=== PATIENT | female | born 1940 | race Caucasian/White ===

== ENCOUNTER 2024-08-07 10:10 | Inpatient (IN) | payer MEDICARE, MEDICAID, SELFPAY ==
[2024-08-07] VITALS (27 sets, daily range): BP systolic 97–134; BP diastolic 65–77; PULSE 90–144; RESP 14–28; TEMP 36.5–37.1; O2SAT 92–98; BMI 20.8
--- NOTE | ~2024-08-07 | XR_ITS ---
XR chest 2V Ordering provider: Nereyda Mittal PA-C History: 84 years Female with . weakness NEW LEFT C.P. AND COUGH . Comparison: None. FINDINGS: MEDIASTINUM: The cardiac silhouette is not enlarged. LUNGS: No pneumothorax. Bibasilar opacification suggestive of atelectasis versus pneumonia with left pleural effusion. Underlying emphysematous changes. OTHER: No free air under the diaphragm. IMPRESSION: Bibasilar atelectasis versus pneumonia with left pleural effusion. Reviewed, dictated and finalized at location A. GER JAVA
--- NOTE | ~2024-08-07 | CT_ITS ---
CT chest abdomen pelvis w con Ordering provider: Nereyda Mittal PA-C History: . leukocytosis, UTI, chest pain . Comparison: None. Technique: CT chest, abdomen and pelvis with IV contrast only. Radiation reduction technique utilized .The dose-length product was 442.78 mGy-cm. 100 mL Omnipaque 350 was given IV. A FINDINGS: CHEST: --VISUALIZED THORACIC INLET: Normal. --MEDIASTINUM: Aorta/coronary arteries: Mild atheromatous disease. Heart/other: The heart is not enlarged. Lymph nodes: No mediastinal or hilar adenopathy. --LUNGS: Bilateral basal pneumonia with minimal effusion more on the left side. No pulmonary nodules or masses. No pneumothorax. Underlying fibrotic changes. --MUSCULOSKELETAL: Soft tissues: The superficial soft tissues are normal. Bones: No acute fracture. Age appropriate degenerative changes of the spine. ABDOMEN/PELVIS: --MUSCULOSKELETAL: Bones: No acute fracture. Age appropriate degenerative changes of the spine. Right hip arthroplasty. Left sacroiliitis. Fixation of the left femoral neck is also noted. Superficial soft tissues: The superficial soft tissues are normal. --UPPER ABDOMINAL ORGANS: Liver: Normal. Gallbladder: Normal. Spleen: Normal. Stomach/duodenum: Normal. Pancreas: Normal. Slightly prominent pancreatic duct. Adrenals: Normal. Kidneys: Left kidney upper pole cyst measuring 3.8 cm. --PELVIC ORGANS: The bladder is underfilled.. --BOWEL AND MESENTERY: Colon: No evidence of diverticulitis.. Appendix is not demonstrated. Small Bowel: Normal. No obstruction. Peritoneum/mesentery: No free air or free fluid. No mesenteric lymphadenopathy. --RETROPERITONEUM: Mild atheromatous disease of the abdominal aorta. No retroperitoneal hemorrhage o r aortic trauma. No retroperitoneal lymphadenopathy or retroperitoneal hemorrhage. IMPRESSION: CHEST: 1. Bilateral basal pneumonia with left minimal effusion. 2. No pulmonary embolism. ABDOMEN/PELVIS: 1. No evidence of appendicitis, diverticulitis or intestinal obstruction. 2. Left renal cyst. A Reviewed, dictated and finalized at location A. CAL GENETICIST
--- NOTE | 2024-08-07 10:48 | ECG_ITS ---
Test Date: 2024-08-07 13:08:00 Measurements Intervals [facility] Rate: 105 P: 41 AK: 162 QRS: -6 QRSD: 90 T: -6 QT: 315 QTc: 418 Interpretive Statements SINUS TACHYCARDIA VOLTAGE CRITERIA FOR LVH [MEETS CRITERIA IN ONE OF: R(aVL), S(V1), R(V5), R(V5/V6)+S(V1)] No previous ECG available for comparison Electronically Signed On 08-07-2024 19:00:55 PACKAGER HAND by Adwoa Younger
--- NOTE | 2024-08-07 11:42 | ED.WEAKNESS ---
HPI - Weakness General Chief complaint: Weakness <EDITH Ram Last Filed: 08/12/24 18:40> Stated complaint: weakness <EDITH Ram Last Filed: 08/12/24 18:40> Time Seen by Provider: 08/07/24 10:28 <EDITH Ram Last Filed: 08/12/24 18:40> Source: patient and family <EDITH Ram Last Filed: 08/12/24 18:40> Mode of arrival: ambulatory <EDITH Ram Last Filed: 08/12/24 18:40> Limitations: no limitations <EDITH Ram Last Filed: 08/12/24 18:40> History of Present Illness HPI Narrative: This is an 84-year-old female that presents to the emergency department for generalized weakness. Reports she has had a cough over the last week. Last couple of days she has become more weak and has been sleeping more than usual. Today they thought her breathing seemed off which prompted them to bring her in. Reports pain in her left lower lung. Denies fevers. <EDITH Ram Last Filed: 08/12/24 18:40> Related Data Home medications: Home Medications ?Medication ?Instructions ?Recorded ?Confirmed ?Last Taken ?Type No Home Medications 08/07/24 08/07/24 Unknown History <EDITH Ram Last Filed: 08/12/24 18:40> Allergies/Adverse reactions: Allergies Allergy/AdvReac Type Severity Reaction Status Date / Time latex Allergy Rash Verified 08/07/24 12:55 <EDITH Ram Last Filed: 08/12/24 18:40> Review of Systems Review of Systems: CONSTITUTIONAL: Denies fever ENT: Reports congestion CARDIOVASCULAR: Reports chest pain. Denies edema. RESPIRATORY: Reports cough and dyspnea. <EDITH Ram Last Filed: 08/12/24 18:40> All systems reviewed & are unremarkable except as noted in HPI and below <EDITH Ram Last Filed: 08/12/24 18:40> PMFSH Past Medical History Medical History: Medical History History of COPD <Nereyda Mittal PA-C - Last Filed: 08/12/24 18:40> Social History Social History: Social History Smoking status: Former smoker Tobacco type: cigarettes and e-cigarettes/vaping Second hand tobacco smoke exposure: No Smoking end date: 07/28/14 Alcohol intake: never Substance use: never Substance use type: does not use Do You Feel Safe in your Home?: Yes Lack of Transportation: No Lack of Food: Never True Current Housing: I Have Housing Concerned About Future Housing: No Difficulty Paying Gas/Electric Bills: No Difficulty Paying for Meds: No Currently Unemployed: No Education: High School Diploma/GED Difficulty w/ Childcare or Family Care: No Spiritual care concerns: No <Nereyda Mittal PA-C - Last Filed: 08/12/24 18:40> Exam Narrative: GENERAL: Elderly, well-nourished, and in no acute distress. HEAD: Normocephalic, atraumatic. EYES: PERRLA and EOMI. ENT: Nares clear, no rhinorrhea or epistaxis. Mucous membranes moist. Oropharynx without tonsillar hypertrophy exudate or other lesions. Bilateral cerumen impaction NECK: Supple. No adenopathy or masses. CHEST: No respiratory distress. Lung sounds coarse with rales at the bases. No wheezes or rhonchi HEART: Regular rate and rhythm. No murmur heard. Normal peripheral pulses. EXTREMITIES: Normal range of motion. No edema. SKIN: Warm, dry, no rash. NEURO: No focal deficits. Alert and oriented x3. PSYCH: Normal mood and affect <Nereyda Mittal PA-C - Last Filed: 08/12/24 18:40> Course Course Emergency Course: Patient and family updated on workup and need for admission <Nereyda Mittal PA-C - Last Filed: 08/12/24 18:40> RECEPTIONIST SECRETARY/PA Physician Supervision Agree with the PA note <Nereyda Mittal PA-C - Last Filed: 08/12/24 18:40> Agree with a PA note <Elder Paredes MD - Last Filed: 08/07/24 22:15> Consultations Consultation #1: Spoke with hospitalist about patient and workup who accepts admission <Nereyda Mittal PA-C - Last Filed: 08/12/24 18:40> Date: 08/07/24 <Nereyda Mittal PA-C - Last Filed: 08/12/24 18:40> Vital Signs Vital signs: Vital Signs Pulse Rate 115 H 08/07/24 10:19 Respiratory Rate 24 H 08/07/24 10:19 Temperature 97.6 F 08/12/24 14:00 Pulse Rate 102 H 08/12/24 16:04 Respiratory Rate 17 08/12/24 14:00 Blood Pressure 131/66 08/12/24 14:00 Pulse Oximetry 97 08/12/24 14:00 Oxygen Delivery Room Air 08/12/24 08:15 Fraction of Inspired Oxygen 21 08/12/24 08:15 <Nereyda Mittal PA-C - Last Filed: 08/12/24 18:40> Vital Signs Pulse Rate 115 H 08/07/24 10:19 Respiratory Rate 24 H 08/07/24 10:19 Temperature 97.6 F 08/12/24 14:00 Pulse Rate 102 H 08/12/24 16:04 Respiratory Rate 17 08/12/24 14:00 Blood Pressure 131/66 08/12/24 14:00 Pulse Oximetry 97 08/12/24 14:00 Oxygen Delivery Room Air 08/12/24 08:15 Fraction of Inspired Oxygen 21 08/12/24 08:15 <Elder Paredes MD - Last Filed: 08/07/24 22:15> MDM - Weakness MDM Narrative Medical decision making narrative: Patient presents to the emergency department for a worsening cough. She is afebrile and nontoxic appearing. Lung sounds are coarse. Rales noted at the bases. Oxygen saturation has remained stable on room air. CBC with leukocytosis to 23.1. Metabolic panel with creatinine of 1.2, unsure of patient's baseline. Urine with evidence of infection. Blood cultures obtained and patient started on IV antibiotics. After nebulizer treatment patient did have an episode of AFib with RVR. She responded to a dose of metoprolol. This would be new for the patient. Influenza, RSV and COVID screens are negative. CT chest/abdomen/pelvis obtained for further evaluation shows multifocal pneumonia. No PE or acute intra-abdominal abnormality. Patient and family updated on workup and need for admission. Spoke with hospitalist about patient and workup who accepts admission <Nereyda Mittal PA-C - Last Filed: 08/12/24 18:40> Differential Diagnosis Differential diagnosis: Likely sepsis, dehydration and other (UTI, pneumonia, influenza, COVID, afib, aflutter) <Nereyda Mittal PA-C - Last Filed: 08/12/24 18:40> Lab Data Attestation: I reviewed the patient's lab results. <Nereyda Mittal PA-C - Last Filed: 08/12/24 18:40> Result diagrams: 08/12/24 08:30 08/12/24 08:30 <Nereyda Mittal PA-C - Last Filed: 08/12/24 18:40> Labs: Lab Results 08/07/24 08/07/24 08/07/24 Range/Units 11:40 11:54 12:08 WBC 23.1 H (4.5-10.0) K/mm3 RBC 4.67 (4.2-5.4) M/mm3 Hgb 14.0 (12.0-15.0) g/dL Hct 41.5 (37.0-47.0) % MCV 88.9 (80-100) fl MCH 30.0 (26-34) pg MCHC 33.7 (32-36) g/dl RDW 13.6 (11.5-14.5) % Plt Count 259 (150-375) k/mm3 MPV 9.4 (7.4-10.4) fl Immature Gran % (Auto) Not Reportable Neut % (Auto) Not Reportable Lymph % (Auto) Not Reportable [place] % (Auto) Not Reportable Eos % (Auto) Not Reportable Baso % (Auto) Not Reportable Lymph # (Auto) Not Reportable [place] # (Auto) Not Reportable Eos # (Auto) Not Reportable Baso # (Auto) Not Reportable Abs Immat Gran (auto) Not Reportable Absolute Neuts (auto) Not Reportable Absolute Nucleated RBC Not Reportable Total Counted 100 Neutrophils % (Manual) 77 H (46-73) % Band Neutrophils % 15 H (0-6) % Lymphocytes % (Manual) 2 L (18-44) % Monocytes % (Manual) 6 (3-9) % Eosinophils % (Manual) 0 (0-4) % Basophils % (Manual) 0 (0-1) % Nucleated RBC % Not Reportable Abs Neuts (Manual) 21.25 H (1.7-7.2) K/mm3 Abs Lymphs (Manual) 0.46 L (1.1-4.5) K/mm3 Abs Monocytes (Manual) 1.38 H (0.1-0.90) K/mm3 Absolute Eos (Manual) 0.00 L (0.02-0.50) K/mm3 Abs Basophils (Manual) 0.00 (0.0-0.1) K/mm3 Platelet Estimate Adequate (Adequate) [place] Cells 1+ Schistocytes None seen PT 16.5 H (11.1-14.7) Seconds INR 1.3 APTT 33.3 (22.3-36.8) Seconds Sodium 133 L (137-145) mmol/L Potassium 3.5 (3.4-5.0) mmol/L Chloride 102 (98-107) mmol/L Carbon Dioxide 25 (22-30) mmol/L Anion Gap 6 (4-12) mmol/L BUN 33 H (7-17) mg/dL Creatinine 1.20 H (0.7-1.0) mg/dL Estim Creat Clear Calc Not Reportable Estimated GFR 43 L (59 - ) Glucose 161 H (65-110) mg/dL Lactic Acid 1.8 (0.7-2.0) mmol/L Calcium 8.7 (8.4-10.2) mg/dL Total Bilirubin 2.0 H (0.2-1.3) mg/dL AST 21 (14-36) U/L ALT 14 (6-35) U/L Alkaline Phosphatase 81 (38-126) U/L Troponin I 0.017 (0.000-0.034) ng/mL C-Reactive Protein 32.3 H (<1.0) mg/dL NT-Pro-B Natriuret Pep 1180 H (19.9-100) pg/mL Total Protein 7.0 (6.3-8.2) g/dL Albumin 3.5 (3.5-5.1) g/dL Urine Color [place] H (Yellow) Urine Appearance Cloudy H (Clear) Urine pH 5.0 (5.0-9.0) Ur Specific [place] 1.024 (1.001-1.035) Urine Protein 1+ H (Negative) mg/dL Urine Glucose (UA) Negative (Negative) mg/dL Urine Ketones Trace H (Negative) mg/dL Ur Blood (Man) 1+ H (Negative) Urine Nitrate Positive H (Negative) Urine Bilirubin 2+ H (Negative) Urine Urobilinogen 1.0 (<2.0) mg/dL Leukocyte Esterase Rfl 2+ H (Negative) TOMY/UL Urine RBC 0-2 (0-2) /hpf Urine WBC 51-100 H (0-3) /hpf Ur Squamous Epith Cells Few (Few) /hpf Urine Bacteria 4+ H /hpf Urine Casts >20 Hyaline Casts Present (None) /lpf Urine Mucus Present /lpf Influenza A (RT-PCR) Negative (Negative) Influenza B (RT-PCR) Negative (Negative) RSV (RT-PCR) Negative (Negative) SARS-CoV-2 RNA (RT-PCR) Negative (Negative) <Nereyda Mittal PA-C - Last Filed: 08/12/24 18:40> Lab Results 08/07/24 08/07/24 08/07/24 Range/Units 11:40 11:54 12:08 WBC 23.1 H (4.5-10.0) K/mm3 RBC 4.67 (4.2-5.4) M/mm3 Hgb 14.0 (12.0-15.0) g/dL Hct 41.5 (37.0-47.0) % MCV 88.9 (80-100) fl MCH 30.0 (26-34) pg MCHC 33.7 (32-36) g/dl RDW 13.6 (11.5-14.5) % Plt Count 259 (150-375) k/mm3 MPV 9.4 (7.4-10.4) fl Immature Gran % (Auto) Not Reportable Neut % (Auto) Not Reportable Lymph % (Auto) Not Reportable [place] % (Auto) Not Reportable Eos % (Auto) Not Reportable Baso % (Auto) Not Reportable Lymph # (Auto) Not Reportable [place] # (Auto) Not Reportable Eos # (Auto) Not Reportable Baso # (Auto) Not Reportable Abs Immat Gran (auto) Not Reportable Absolute Neuts (auto) Not Reportable Absolute Nucleated RBC Not Reportable Total Counted 100 Neutrophils % (Manual) 77 H (46-73) % Band Neutrophils % 15 H (0-6) % Lymphocytes % (Manual) 2 L (18-44) % Monocytes % (Manual) 6 (3-9) % Eosinophils % (Manual) 0 (0-4) % Basophils % (Manual) 0 (0-1) % Nucleated RBC % Not Reportable Abs Neuts (Manual) 21.25 H (1.7-7.2) K/mm3 Abs Lymphs (Manual) 0.46 L (1.1-4.5) K/mm3 Abs Monocytes (Manual) 1.38 H (0.1-0.90) K/mm3 Absolute Eos (Manual) 0.00 L (0.02-0.50) K/mm3 Abs Basophils (Manual) 0.00 (0.0-0.1) K/mm3 Platelet Estimate Adequate (Adequate) [place] Cells 1+ Schistocytes None seen PT 16.5 H (11.1-14.7) Seconds INR 1.3 APTT 33.3 (22.3-36.8) Seconds Sodium 133 L (137-145) mmol/L Potassium 3.5 (3.4-5.0) mmol/L Chloride 102 (98-107) mmol/L Carbon Dioxide 25 (22-30) mmol/L Anion Gap 6 (4-12) mmol/L BUN 33 H (7-17) mg/dL Creatinine 1.20 H (0.7-1.0) mg/dL Estim Creat Clear Calc Not Reportable Estimated GFR 43 L (59 - ) Glucose 161 H (65-110) mg/dL Lactic Acid 1.8 (0.7-2.0) mmol/L Calcium 8.7 (8.4-10.2) mg/dL Total Bilirubin 2.0 H (0.2-1.3) mg/dL AST 21 (14-36) U/L ALT 14 (6-35) U/L Alkaline Phosphatase 81 (38-126) U/L Troponin I 0.017 (0.000-0.034) ng/mL C-Reactive Protein 32.3 H (<1.0) mg/dL NT-Pro-B Natriuret Pep 1180 H (19.9-100) pg/mL Total Protein 7.0 (6.3-8.2) g/dL Albumin 3.5 (3.5-5.1) g/dL Urine Color [place] H (Yellow) Urine Appearance Cloudy H (Clear) Urine pH 5.0 (5.0-9.0) Ur Specific [place] 1.024 (1.001-1.035) Urine Protein 1+ H (Negative) mg/dL Urine Glucose (UA) Negative (Negative) mg/dL Urine Ketones Trace H (Negative) mg/dL Ur Blood (Man) 1+ H (Negative) Urine Nitrate Positive H (Negative) Urine Bilirubin 2+ H (Negative) Urine Urobilinogen 1.0 (<2.0) mg/dL Leukocyte Esterase Rfl 2+ H (Negative) TOMY/UL Urine RBC 0-2 (0-2) /hpf Urine WBC 51-100 H (0-3) /hpf Ur Squamous Epith Cells Few (Few) /hpf Urine Bacteria 4+ H /hpf Urine Casts >20 Hyaline Casts Present (None) /lpf Urine Mucus Present /lpf Influenza A (RT-PCR) Negative (Negative) Influenza B (RT-PCR) Negative (Negative) RSV (RT-PCR) Negative (Negative) SARS-CoV-2 RNA (RT-PCR) Negative (Negative) <Elder Paredes MD - Last Filed: 08/07/24 22:15> Imaging Data Radiologist's impression: ITS Impressions Chest X-Ray 08/07/24 11:23 IMPRESSION: Bibasilar atelectasis versus pneumonia with left pleural effusion. Chest/Abdomen/Pelvis CT 08/07/24 13:39 IMPRESSION: CHEST: 1. Bilateral basal pneumonia with left minimal effusion. 2. No pulmonary embolism. ABDOMEN/PELVIS: 1. No evidence of appendicitis, diverticulitis or intestinal obstruction. 2. Left renal cyst. A <Nereyda Mittal PA-C - Last Filed: 08/12/24 18:40> Critical Care Time Critical Care Time Critical Care Time: Yes <Nereyda Mittal PA-C - Last Filed: 08/12/24 18:40> Total Critical Care Time: 35 <Nereyda Mittal PA-C - Last Filed: 08/12/24 18:40> Discharge Plan Discharge Clinical Impression: Severe sepsis, Multifocal pneumonia, General weakness, Atrial fibrillation with RVR, New onset a-fib UTI (urinary tract infection) Qualifiers: Urinary tract infection type: site unspecified Hematuria presence: without hematuria Qualified Code(s): N39.0 - Urinary tract infection, site not specified Acute renal failure Qualifiers: Acute renal failure type: unspecified Qualified Code(s): N17.9 - Acute kidney failure, unspecified <Nereyda Mittal PA-C - Last Filed: 08/12/24 18:40> Patient Disposition: Still a Patient <Nereyda Mittal PA-C - Last Filed: 08/12/24 18:40> Condition: Guarded Prognosis <Nereyda Mittal PA-C - Last Filed: 08/12/24 18:40> Time of Disposition: 22:14 <Nereyda Mittal PA-C - Last Filed: 08/12/24 18:40> 22:14 <Elder Paredes MD - Last Filed: 08/07/24 22:15>
[2024-08-07] MEDS: IPRATROPIUM 0.5 MG/ALBUTEROL SULFATE 2.5 MG AMPUL.NEB 3 ML INHALATION (12:00)
[2024-08-07 12:05] LABS: Hematocrit 41.5 % (37.0-47.0); Mean Corpuscular HGB Conc 33.7 g/dl (32-36); Mean Corpuscular Volume 88.9 fl (80-100); Mean Platelet Volume 9.4 fl (7.4-10.4); Platelet Count Result 259 k/mm3 (150-375); Red Blood Count 4.67 M/mm3 (4.2-5.4); Red Cell Distribution Width 13.6 % (11.5-14.5); White Blood Count 23.1 K/mm3 (4.5-10.0)
[2024-08-07 12:17] LABS: Lactic Acid Reflex 1.8 mmol/L (0.7-2.0)
[2024-08-07 12:19] LABS: INR 1.3; Partial Thromboplastin Time 33.3 Seconds (22.3-36.8); Prothrombin Time 16.5 Seconds (11.1-14.7)
[2024-08-07 12:20] LABS: Alanine Aminotransferase 14 U/L (6-35); Albumin Level 3.5 g/dL (3.5-5.1); Alkaline Phosphatase 81 U/L (38-126); Anion Gap 6 mmol/L (4-12); Aspartate Amino Transferase 21 U/L (14-36); Blood Urea Nitrogen 33 mg/dL (7-17); Calcium 8.7 mg/dL (8.4-10.2); Carbon Dioxide 25 mmol/L (22-30); Chloride 102 mmol/L (98-107); Estimated Glomerular Filt Rate 43; Glucose 161 mg/dL (65-110); Potassium 3.5 mmol/L (3.4-5.0); Sodium 133 mmol/L (137-145)
[2024-08-07 12:25] LABS: Add Urine Microscopic? YES; Appearance Urine Cloudy (Clear); Bacteria Urine 4+ /hpf; Bilirubin Urine 2+ (Negative); Blood Urine 1+ (Negative); Color Urine Orange (Yellow); Glucose Urine UA Negative (Negative); Ketones Urine Trace mg/dL (Negative); Leukocyte Esterase Ur 2+ LEU/UL (Negative); Nitrate Urine Positive (Negative); Non Pathogenic Casts >20; Protein Urine 1+ mg/dL (Negative); RBC Urine 0-2 /hpf (0-2); Specific Grav Ur 1.024 (1.001-1.035); Squamous Epithelial Cell Urine Few /hpf (Few); WBC Urine 51-100 /hpf (0-3)
[2024-08-07 12:25] LABS: NT Pro B Type Natriuretic Pept 1180 pg/mL (19.9-100)
[2024-08-07 12:29] LABS: Troponin I 0.017 ng/mL (0.000-0.034)
[2024-08-07 12:30] LABS: Hyaline Casts Urine Present /lpf; Mucus Urine Present /lpf
[2024-08-07 12:37] LABS: Band Neutrophils Percent 15 % (0-6); Basophils Percent Manual 0 % (0-1); Eosinophils Percent Manual 0 % (0-4); Lymphocytes Absolute Manual 0.46 K/mm3 (1.1-4.5); Lymphocytes Percent Manual 2 % (18-44); Monocytes Absolute Manual 1.38 K/mm3 (0.1-0.90); Monocytes Percent Manual 6 % (3-9); Neutrophils Absolute Manual 21.25 K/mm3 (1.7-7.2); Neutrophils Percent Manual 77 % (46-73); Platelet Estimate Adequate (Adequate); Total Cells Counted 100
[2024-08-07 12:38] LABS: Burr Cells 1+; Schistocytes None Seen
[2024-08-07 12:45] LABS: Influenza A QL RT-PCR Negative (Negative); Influenza B QL RT-PCR Negative (Negative); RSV RNA, RT-PCR Negative (Negative); SARS-CoV-2 RNA PCR Negative (Negative)
[2024-08-07] MEDS: methylPREDNISolone SOD SUCC 125 MG VIAL IV PUSH (12:56)
[2024-08-07 13:45] LABS: CRP 32.3 mg/dL (<1.0)
--- NOTE | 2024-08-07 14:16 | ECG_ITS ---
Test Date: 2024-08-07 14:19:20 Measurements Intervals [place] Rate: 130 P: 0 DC: 0 QRS: 1 QRSD: 90 T: -31 QT: 292 QTc: 430 Interpretive Statements ATRIAL FLUTTER/TACHYCARDIA WITH RAPID VENTRICULAR RESPONSE WITH ABERRANT CONDUCTION OR VENTRICULAR PREMATURE COMPLEXES MINIMAL VOLTAGE CRITERIA FOR LVH, CONSIDER NORMAL VARIANT [MEETS CRITERIA IN ONE OF: R(aVL), S(V1), R(V5), R(V5/V6)+S(V1)] NONSPECIFIC ST & T-WAVE ABNORMALITY ABNORMAL RHYTHM ECG Compared to ECG 08/07/2024 13:08:00 Ventricular premature complex(es) now present Aberrant conduction of supraventricular beat(s) now present T-wave abnormality now present Sinus tachycardia no longer present Electronically Signed On 08-07-2024 19:01:50 FRONT OFFICE J[employer] DEVELOPER by Adwoa Younger
[2024-08-07] MEDS: METOPROLOL TARTRATE INJ 5 MG/5 ML VIAL IV PUSH (14:37)
[2024-08-07] MEDS: AZITHROMYCIN 500 MG/NS 250 ML 500 MG/250 ML BAG 250 MG IVPB (15:10)
--- NOTE | 2024-08-07 16:13 | P.HP_ITS ---
H&P: HPI History of Present Illness Date/Time: 08/07/24 16:13 Chief Complaint: General weakness Narrative: Patient is a poor historian, history taken from patient and patient's daughter Mary 84 years old lady with history of remote history of smoking and possible COPD, without atrial fibrillation CAD, ovarian cancer status post hysterectomy and ovarian 10 years ago, status post chemo and radiation therapy about 10 years ago brought to ED by her daughter with chief complaint of general weakness, cough. Patient has been having productive cough over the last week, with white thick phlegm. Patient also has progressive trend weakness. Patient develops shortness of breath today, therefore patient was brought to ED for evaluation treatment. Patient denies dysuria but has urinary urgency frequency. Patient denies nausea vomiting, headache, focal weakness of photophobia. Upon arrival to ED, blood pressure was soft, 97/65. patient was afebrile, patient has tachycardia 144 tachypnea 24, pulse ox 96 on room air. Lab showed leukocytosis of 23,000 left shift, hyponatremia 133, elevated BUN creatinine ratio 33/1.2, unknown baseline. EKG showed atrial fibrillation, heart rate 130. CTA chest 7 pelvis showed bilateral pneumonia, no pulmonary embolism, no acute intra-abdominal issues. Flu and COVID negative. UA showed cloudy urine, hematuria, bacteria In the ED, patient received azithromycin ceftriaxone, methylprednisolone 125 mg once, metoprolol 5 mg IV push once We admit patient for further evaluation and management Review of Systems Review of Systems: ROS negative except above [facility] Past Medical History Medical History (Updated 08/07/24 @ 22:15 by Elder Paredes MD) History of COPD Social History Social History (Updated 08/07/24 @ 11:44 by Nereyda Mittal PA-C) Smoking status: Former smoker Tobacco type: cigarettes and e-cigarettes/vaping Second hand tobacco smoke exposure: No Smoking end date: 07/28/14 Alcohol intake: never Substance use: never Substance use type: does not use Do You Feel Safe in your Home?: Yes Lack of Transportation: No Lack of Food: Never True Current Housing: I Have Housing Concerned About Future Housing: No Difficulty Paying Gas/Electric Bills: No Difficulty Paying for Meds: No Currently Unemployed: No Education: High School Diploma/GED Difficulty w/ Childcare or Family Care: No Spiritual care concerns: No Meds Home Medications and Allergies Home Medications ?Medication ?Instructions ?Recorded ?Confirmed ?Type No Home Medications 08/07/24 08/07/24 History Allergies Allergy/AdvReac Type Severity Reaction Status Date / Time latex Allergy Rash Verified 08/07/24 12:55 Vital Signs Vital Signs - 24 hr 08/07/24 10:19 08/07/24 10:20 08/07/24 10:21 Temperature 98.4 F Pulse Rate 115 H 114 H 112 H Respiratory Rate 24 H 28 H 21 H Blood Pressure 126/67 126/67 Pulse Oximetry 94 94 Oxygen Delivery Room Air 08/07/24 10:30 08/07/24 10:31 08/07/24 10:45 Temperature Pulse Rate 114 H 117 H 112 H Respiratory Rate 21 H 26 H 21 H Blood Pressure 113/77 Pulse Oximetry 93 93 92 Oxygen Delivery 08/07/24 11:01 08/07/24 11:51 08/07/24 12:00 Temperature Pulse Rate 104 H 105 H 102 H Respiratory Rate 26 H 22 H 23 H Blood Pressure 97/65 L Pulse Oximetry 93 94 94 Oxygen Delivery 08/07/24 12:09 08/07/24 12:16 08/07/24 12:18 Temperature Pulse Rate 101 H 102 H 108 H Respiratory Rate 19 20 21 H Blood Pressure Pulse Oximetry 98 Oxygen Delivery 08/07/24 13:00 08/07/24 13:01 08/07/24 13:15 Temperature Pulse Rate 114 H 112 H 110 H Respiratory Rate 25 H 27 H 26 H Blood Pressure 122/74 Pulse Oximetry 93 93 94 Oxygen Delivery 08/07/24 13:36 08/07/24 13:45 08/07/24 14:37 Temperature Pulse Rate 118 H 115 H 144 H Respiratory Rate 27 H 21 H Blood Pressure Pulse Oximetry 97 96 Oxygen Delivery Exam Narrative: GENERAL: Ill-appearing in no acute distress. Well-nourished. - EYES: EOMI. Anicteric. - HENT: Moist mucous membranes. - LUNGS: Coarse breath sound bilateral, tachypnea - CARDIOVASCULAR: Tachycardia, irregula r in rhythm. No murmur. No JVD. - ABDOMEN: Soft, non-tender and non-dist ended. No palpable masses. - EXTREMITIES: No edema. Peripheral puls es 2+. Non-tender. - NEUROLOGIC: No focal neurological defi cits. CN II-XII grossly intact. General weakness - PSYCHIATRIC: Awake, Alert and oriented x 3. Appropriate mood and affect. - SKIN: No rashes or lesions. Warm. - LYMPH: No cervical lymphadenopathy. H&P: Results Labs Labs: Short CBC 08/07/24 Range/Units 11:54 WBC 23.1 H (4.5-10.0) K/mm3 Hgb 14.0 (12.0-15.0) g/dL Hct 41.5 (37.0-47.0) % Plt Count 259 (150-375) k/mm3 BMP 08/07/24 11:54 Sodium 133 L Potassium 3.5 Chloride 102 Carbon Dioxide 25 BUN 33 H Creatinine 1.20 H Glucose 161 H Calcium 8.7 Cardiac Enzymes 08/07/24 Range/Units 11:54 Troponin I 0.017 (0.000-0.034) ng/mL Liver Function 08/07/24 Range/Units 11:54 Total Bilirubin 2.0 H (0.2-1.3) mg/dL AST 21 (14-36) U/L ALT 14 (6-35) U/L Alkaline Phosphatase 81 (38-126) U/L Albumin 3.5 (3.5-5.1) g/dL Urine 08/07/24 Range/Units 12:08 Urine Color [place] H (Yellow) Urine Appearance Cloudy H (Clear) Urine pH 5.0 (5.0-9.0) Ur Specific [place] 1.024 (1.001-1.035) Urine Protein 1+ H (Negative) mg/dL Urine Glucose (UA) Negative (Negative) mg/dL Assessment and Plan Assessment and plan (1) Severe sepsis: Code(s): A41.9 - Sepsis, unspecified organism; R65.20 - Severe sepsis without septic shock Status: Acute (2) Multifocal pneumonia: Code(s): J18.9 - Pneumonia, unspecified organism Status: Acute (3) UTI (urinary tract infection): Code(s): N39.0 - Urinary tract infection, site not specified Status: Acute (4) Atrial fibrillation with RVR: Code(s): I48.91 - Unspecified atrial fibrillation Status: Acute (5) Acute renal failure: Code(s): N17.9 - Acute kidney failure, unspecified Status: Acute (6) General weakness: Code(s): R53.1 - Weakness Status: Acute (7) New onset a-fib: Code(s): I48.91 - Unspecified atrial fibrillation Status: Acute Plan Severe sepsis, Patient is a tachycardia tachypnea, leukocytosis of 23,100, hypotension upon arrival in the ED CT scan shows bilateral pneumonia, UA shows pyuria Meeting criteria of sepsis Received azithromycin and ceftriaxone in the ED, continue azithromycin IV, start cefepime IV Received fluid resuscitation Blood pressure becomes stable Follow-up blood culture urine culture Monitor vital sign monitoring analyst Multifocal pneumonia Patient has been having productive cough more than a week Patient has white thick phlegm. CT scan showed no PE but bilateral pneumonia COVID flu negative Antibiotics see above Follow-up sputum culture COPD exacerbation Possible undiagnosed COPD, patient has remote history of smoking Patient has shortness breath Will start Xopenex nebulizer Received methylprednisolone 125 mg in the ED, continue methylprednisolone 40 mg q.d. are IV Continuous pulse ox monitor, start O2 therapy to keep pulse ox above 92 AFib RVR Patient has new onset AFib Patient is not on blood thinner Likely secondary to pneumonia, sepsis Echocardiogram pending Start Cardizem IV p.r.n. to control heart rate below 140 if blood pressure permits Consult cardiology for evaluation treatment UTI UA showed cloudy urine, pyuria and microscopic hematuria Antibiotics see above Follow-up urine culture Acute renal failure, hyponatremia Sodium 133, BUN creatinine ratio 33/1.2 on no baseline Patient's family denies history of acute renal failure Likely secondary to sepsis and poor intake Start normal saline IV Follow-up BMP CT does not show obstruction DVT prophylaxis subQ heparin Cardiac diet Patient may stay more than 2 midnights in the hospital Patient wishes DNR DNI code status was discussed with the patient in presents of patient's daughter Mary and home day care provider in the ER Hospitalist MIPS Advance Care Plan I have confirmed that the patient's Advanced Care Plan is present, code status is documented, or surrogate decision maker is listed in patient medical record.: Yes Medication Reconciliation The patient is not eligible for med reconciliation; the patient is in a emergent medical situation where delaying treatment would jeopardize the patients health.: Yes
--- NOTE | 2024-08-07 18:58 | PC.NURSE ---
This RN went into the room to start ordered diltiazem drip and normal saline infusion. Patient adamantly refuses to allow any medications to be given. She states that she doesn't take medications on a normal bases, that she will consider it. This RN sat at the bedside and discussed thoroughly with the patient and family member the reason the medication was ordered. The patient did not change her course and maintained that she would not take the medication at all. Her family member tried to talk with her and encourage her and she became more frustrated and her distrust grew. This RN called the provider and there no answer. This RN left a detailed message.
--- NOTE | 2024-08-07 19:48 | PM.EVENT ---
Event Note Event Note Event Note: Patient is currently agitated and refusing all medical care. Patient's son and [id number] were called and are now at the bedside. Per family she becomes agitated when taken out of her home environment or when she has an infection. Has baseline dementia. They are requesting medications to help calm the patient in order for her to receive medical care. The patient has a hx of alcoholism and they are requesting no cough medications or medications that have alcohol. Fall precautions placed. Patient has also previously hallucinated with pain medication, unsure what name of meds is but would like us to avoid heavy pain medications such as morphine if possible. Will plan for Zyprexa 10 mg IM given patient will not take PO meds and is not tolerating diltiazem gtt. 1-1 sitter ordered and chemical restraints. Family is aware we may need to escalate measures in order for the patient to receive medical care safely and they are agreeable. Zyprexa given at 20:00. Patient requiring multiple redirections from nursing staff back to the bed. Exam: Patient knows her name. No increased work of breathing. Ambulatory without assistance. She is currently rotating through Estonian and southern accent. Attempting to bodily leave the room. Unable to safely physically assess the patient further. Reassessment at 20:30: Patient now calm. Speaking to staff in a more normal tone and has been more redirecatble. Currently laying in bed with eyes closed, sitter at the bedside. In no apparent distress.
[2024-08-07] MEDS: OLANZapine 10 MG, WATER, STERILE FOR INJECTION 2.1 ML IM (20:10)
[2024-08-08] VITALS (19 sets, daily range): BP systolic 111–135; BP diastolic 54–77; PULSE 80–117; RESP 16–24; TEMP 35.6–36.9; O2SAT 94–97
[2024-08-08] MEDS: HEPARIN SODIUM 5,000 UNITS/ML VIAL 5000 UNITS SUB-Q ×4 (00:54→23:00)
[2024-08-08] MEDS: CEFEPIME 1 GM/NS 50 ML 1 GM/50 ML BAG IVPB ×3 (00:54→23:08)
[2024-08-08] MEDS: SODIUM CHLORIDE 0.9% IV 1,000 ML 100 ML IV CONT ×2 (00:54→08:31)
[2024-08-08] MEDS: methylPREDNISolone SOD SUCC 125 MG VIAL 60 MG IV PUSH ×4 (00:55→23:00)
--- NOTE | 2024-08-08 01:40 | PC.NURSE ---
This RN received the patient at shift change. At this time the patient was combative, aggressive, and this RN could not perform ordered care or give medications. ASSISTANT BASEBALL COACH Kym reported to bedside, family was at bedside and options were discussed. Provider ordered Zyprexa to be given to the patient. Zyprexa given IM to patient, and patient calmed down. Telemetry applied to patient and patient rested well in bed. The provider stated while at bedside that after reviewing the telemetry the patient is in Sinus Tach and the Diltiazem can be on hold at this time. This RN placed a new IV and administered medications when able to.
[2024-08-08] MEDS: LEVALBUTEROL NEB 1.25 MG/3 ML 0.63 MG INHALATION ×3 (08:30→21:26)
--- NOTE | 2024-08-08 08:55 | PM.IMPN ---
Progress Note: A&P Assessment and Plan (1) Severe sepsis: Code(s): A41.9 - Sepsis, unspecified organism; R65.20 - Severe sepsis without septic shock Status: Acute (2) Multifocal pneumonia: Code(s): J18.9 - Pneumonia, unspecified organism Status: Acute (3) UTI (urinary tract infection): Qualifiers: Hematuria presence: without hematuria Urinary tract infection type: site unspecified Qualified Code(s): N39.0 - Urinary tract infection, site not specified Code(s): N39.0 - Urinary tract infection, site not specified Status: Acute (4) Atrial fibrillation with RVR: Code(s): I48.91 - Unspecified atrial fibrillation Status: Acute (5) Acute renal failure: Qualifiers: Acute renal failure type: unspecified Qualified Code(s): N17.9 - Acute kidney failure, unspecified Code(s): N17.9 - Acute kidney failure, unspecified Status: Acute (6) General weakness: Code(s): R53.1 - Weakness Status: Acute (7) New onset a-fib: Code(s): I48.91 - Unspecified atrial fibrillation Status: Acute Plan Severe sepsis, Patient is a tachycardia tachypnea, leukocytosis of 23,100, hypotension upon arrival in the ED CT scan shows bilateral pneumonia, UA shows pyuria Meeting criteria of sepsis Received azithromycin and ceftriaxone in the ED, continue azithromycin IV, start cefepime IV Received fluid resuscitation Blood pressure becomes stable Follow-up blood culture : Gram-positive cocci in chain, urine culture pending Monitor vital sign youth nutritional monitor Blood pressure became stable Continue current antibiotics Multifocal pneumonia Patient has been having productive cough more than a week Patient has white thick phlegm. CT scan showed no PE but bilateral pneumonia COVID flu negative Antibiotics see above Follow-up sputum culture COPD exacerbation Possible undiagnosed COPD, patient has remote history of smoking Patient has shortness breath Will start Xopenex nebulizer Received methylprednisolone 125 mg in the ED, continue methylprednisolone 40 mg q.d. are IV Continuous pulse ox monitor, start O2 therapy to keep pulse ox above 92 AFib RVR Patient has new onset AFib Patient is not on blood thinner Likely secondary to pneumonia, sepsis Echocardiogram pending Start Cardizem IV p.r.n. to control heart rate below 140 if blood pressure permits Consult cardiology for evaluation treatment UTI UA showed cloudy urine, pyuria and microscopic hematuria Antibiotics see above Follow-up urine culture Acute renal failure, hyponatremia Sodium 133, BUN creatinine ratio 33/1.2 on no baseline Patient's family denies history of acute renal failure Likely secondary to sepsis and poor intake Start normal saline IV Follow-up BMP CT does not show obstruction Delirium Patient has been having intermittent agitations Resulting from sepsis, pneumonia, Provide frequent orientation Provide lasting 5 mg IM mg once DVT prophylaxis subQ heparin Cardiac diet Patient may stay more than 2 midnights in the hospital Patient wishes DNR DNI code status was discussed with the patient in presents of patient's daughter Mary and healthcare business analyst in the ER Subjective Date/time seen: 08/08/24 08:55 Interval history: Patient is afebrile, blood pressure stable, patient feels shortness breath improving, still has a cough with last production of sputum. Blood culture grows Gram-positive cocci in chains, urine culture pending. Patient is agitated afternoon and yesterday evening. Patient received Zyprexa yesterday. When I saw exam patient, patient was alert oriented and calm Exam Narrative: GENERAL: Ill-appearing in no acute distress. Well-nourished. - EYES: EOMI. Anicteric. - HENT: Moist mucous membranes. - LUNGS: Coarse breath sound bilateral, tachypnea - CARDIOVASCULAR: Tachycardia, irregular in rhythm. No murmur. No JVD. - ABDOMEN: Soft, non-tender and non-distended. No palpable masses. - EXTREMITIES: No edema. Peripheral pulses 2+. Non-tender. - NEUROLOGIC: No focal neurological deficits. CN II-XII grossly intact. General weakness - PSYCHIATRIC: Awake, Alert and oriented x 3. Appropriate mood and affect. - SKIN: No rashes or lesions. Warm. - LYMPH: No cervical lymphadenopathy. Objective Data Vital Signs Vital Signs: Vital Signs - 24 hr 08/07/24 10:19 08/07/24 10:20 08/07/24 10:21 Temperature 98.4 F Pulse Rate 115 H 114 H 112 H Respiratory Rate 24 H 28 H 21 H Blood Pressure 126/67 126/67 Pulse Oximetry 94 94 Oxygen Delivery Room Air 08/07/24 10:30 08/07/24 10:31 08/07/24 10:45 Temperature Pulse Rate 114 H 117 H 112 H Respiratory Rate 21 H 26 H 21 H Blood Pressure 113/77 Pulse Oximetry 93 93 92 Oxygen Delivery 08/07/24 11:01 08/07/24 11:51 08/07/24 12:00 Temperature Pulse Rate 104 H 105 H 102 H Respiratory Rate 26 H 22 H 23 H Blood Pressure 97/65 L Pulse Oximetry 93 94 94 Oxygen Delivery 08/07/24 12:09 08/07/24 12:16 08/07/24 12:18 Temperature Pulse Rate 101 H 102 H 108 H Respiratory Rate 19 20 21 H Blood Pressure Pulse Oximetry 98 Oxygen Delivery 08/07/24 13:00 08/07/24 13:01 08/07/24 13:15 Temperature Pulse Rate 114 H 112 H 110 H Respiratory Rate 25 H 27 H 26 H Blood Pressure 122/74 Pulse Oximetry 93 93 94 Oxygen Delivery 08/07/24 13:36 08/07/24 13:45 08/07/24 14:11 Temperature Pulse Rate 118 H 115 H 131 H Respiratory Rate 27 H 21 H 22 H Blood Pressure Pulse Oximetry 97 96 94 Oxygen Delivery 08/07/24 14:15 08/07/24 14:37 08/07/24 14:41 Temperature Pulse Rate 130 H 144 H 108 H Respiratory Rate 26 H 14 Blood Pressure Pulse Oximetry 95 93 Oxygen Delivery 08/07/24 14:45 08/07/24 15:50 08/07/24 17:10 Temperature 97.7 F Pulse Rate 90 103 H 96 Respiratory Rate 20 24 H 18 Blood Pressure 133/75 134/71 Pulse Oximetry 93 95 98 Oxygen Delivery 08/07/24 18:00 08/07/24 20:00 08/07/24 22:00 Temperature 98.7 F Pulse Rate 109 H 103 H 95 Respiratory Rate 18 Blood Pressure 124/75 Pulse Oximetry 95 Oxygen Delivery 08/08/24 00:00 08/08/24 00:00 08/08/24 02:00 Temperature 98.4 F Pulse Rate 113 H 105 H 87 Respiratory Rate 20 Blood Pressure 129/77 Pulse Oximetry 96 Oxygen Delivery 08/08/24 04:00 08/08/24 04:00 08/08/24 06:00 Temperature 97.7 F Pulse Rate 80 82 90 Respiratory Rate 20 Blood Pressure 111/54 L Pulse Oximetry 96 Oxygen Delivery 08/08/24 08:33 08/08/24 08:33 08/08/24 08:49 Temperature Pulse Rate 94 96 Respiratory Rate 18 18 Blood Pressure Pulse Oximetry 94 Oxygen Delivery Room Air Intake/Output Intake/Output: Intake & Output 08/05/24 08/06/24 08/07/24 08/08/24 23:59 23:59 23:59 23:59 Intake Total 300 811.7 Balance 300 811.7 Meds/Results Medications: Active Medications Generic Name Dose Route Start Last Admin Trade Name Freq PRN Reason Stop Dose Admin Albuterol/Ipratropium 3 ml 08/07/24 17:05 Ipratropium 0.5 Mg/Albuterol Sulfate 2.5 Mg Ampul.Neb 3 Ml INHALATION Q6HRT PRN Shortness Of Breath Or Wheezing Heparin Sodium (Porcine) 5,000 units 08/08/24 08:00 08/08/24 08:31 Heparin Sodium 5,000 Units/Ml Vial SUB-Q 5,000 units Q8HR KELLY Administration Azithromycin 500 mg in 250 mls @ 250 mls/hr 08/08/24 14:00 Zithromax IVPB Q24H KELLY Sodium Chloride 1,000 mls @ 100 mls/hr 08/07/24 17:05 08/08/24 08:31 Normal Saline Iv IV CONT 100 mls/hr .Q10H KELLY Administration Diltiazem HCl 100 mg in 100 mls @ 5 mls/hr 08/07/24 17:15 08/08/24 01:37 Cardizem 100 Mg/100 Ml IV CONT Not Given .Q20H KELLY 5 MG/HR Cefepime HCl 1 gm in 50 mls @ 100 mls/hr 08/08/24 11:00 Maxipime 1 Gm/Ns 50 Ml IVPB Q12H KELLY Levalbuterol HCl 0.63 mg 08/07/24 20:00 08/08/24 08:30 Levalbuterol Neb 1.25 Mg/3 Ml INHALATION 0.63 mg Q6HRT KELLY Administration Methylprednisolone Sodium Succinate 60 mg 08/08/24 08:00 08/08/24 08:32 Methylprednisolone Sod Succ 125 Mg Vial IV PUSH 60 mg Q8HR KELLY Administration Perflutren Lipid Microsphere 0 ml 08/07/24 17:05 Perflutren Lipid Microspheres 1.5 Ml Vial Diluted To 10 Ml Total Volume IV PUSH 08/10/24 17:05 ONCE PRN adequate visualization Protocol Radiology Results: ITS Impressions Chest X-Ray 08/07/24 11:23 IMPRESSION: Bibasilar atelectasis versus pneumonia with left pleural effusion. Chest/Abdomen/Pelvis CT 08/07/24 13:39 IMPRESSION: CHEST: 1. Bilateral basal pneumonia with left minimal effusion. 2. No pulmonary embolism. ABDOMEN/PELVIS: 1. No evidence of appendicitis, diverticulitis or intestinal obstruction. 2. Left renal cyst. A Labs Labs: Laboratory Results - last 24 hr 08/07/24 08/07/24 08/07/24 11:40 11:54 12:08 WBC 23.1 H RBC 4.67 Hgb 14.0 Hct 41.5 MCV 88.9 MCH 30.0 MCHC 33.7 RDW 13.6 Plt Count 259 MPV 9.4 Immature Gran % (Auto) Not Reportable Neut % (Auto) Not Reportable Lymph % (Auto) Not Reportable [place] % (Auto) Not Reportable Eos % (Auto) Not Reportable Baso % (Auto) Not Reportable Lymph # (Auto) Not Reportable [place] # (Auto) Not Reportable Eos # (Auto) Not Reportable Baso # (Auto) Not Reportable Abs Immat Gran (auto) Not Reportable Absolute Neuts (auto) Not Reportable Absolute Nucleated RBC Not Reportable Total Counted 100 Neutrophils % (Manual) 77 H Band Neutrophils % 15 H Lymphocytes % (Manual) 2 L Monocytes % (Manual) 6 Eosinophils % (Manual) 0 Basophils % (Manual) 0 Nucleated RBC % Not Reportable Abs Neuts (Manual) 21.25 H Abs Lymphs (Manual) 0.46 L Abs Monocytes (Manual) 1.38 H Absolute Eos (Manual) 0.00 L Abs Basophils (Manual) 0.00 Platelet Estimate Adequate [place] Cells 1+ Schistocytes None seen PT 16.5 H INR 1.3 APTT 33.3 Sodium 133 L Potassium 3.5 Chloride 102 Carbon Dioxide 25 Anion Gap 6 BUN 33 H Creatinine 1.20 H Estim Creat Clear Calc Not Reportable Estimated GFR 43 L Glucose 161 H Lactic Acid 1.8 Calcium 8.7 Total Bilirubin 2.0 H AST 21 ALT 14 Alkaline Phosphatase 81 Troponin I 0.017 C-Reactive Protein 32.3 H NT-Pro-B Natriuret Pep 1180 H Total Protein 7.0 Albumin 3.5 Urine Color [place] H Urine Appearance Cloudy H Urine pH 5.0 Ur Specific [place] 1.024 Urine Protein 1+ H Urine Glucose (UA) Negative Urine Ketones Trace H Ur Blood (Man) 1+ H Urine Nitrate Positive H Urine Bilirubin 2+ H Urine Urobilinogen 1.0 Leukocyte Esterase Rfl 2+ H Urine RBC 0-2 Urine WBC 51-100 H Ur Squamous Epith Cells Few Urine Bacteria 4+ H Urine Casts >20 Hyaline Casts Present Urine Mucus Present Influenza A (RT-PCR) Negative Influenza B (RT-PCR) Negative RSV (RT-PCR) Negative SARS-CoV-2 RNA (RT-PCR) Negative
--- NOTE | 2024-08-08 08:57 | ECG_ITS ---
Test Date: 2024-08-08 09:55:19 Measurements Intervals [place] Rate: 104 P: 79 [place]: 165 QRS: -7 QRSD: 86 T: -1 QT: 336 QTc: 442 Interpretive Statements SINUS TACHYCARDIA WITH OCCASIONAL SUPRAVENTRICULAR PREMATURE COMPLEXES VOLTAGE CRITERIA FOR LVH [MEETS CRITERIA IN ONE OF: R(aVL), S(V1), R(V5), R(V5/V6)+S(V1)] MINIMAL ST DEPRESSION [0.025+ mV ST DEPRESSION] Compared to ECG 08/07/2024 14:19:20 ST (T wave) deviation now present Atrial flutter no longer present Ventricular premature complex(es) no longer present Aberrant conduction of supraventricular beat(s) no longer present Electronically Signed On 08-08-2024 15:57:14 SPECIAL EVENT ASSISTANT by Adwoa Younger
--- NOTE | 2024-08-08 09:16 | ECG_ITS ---
Test Date: 2024-08-08 09:56:36 Measurements Intervals [place] Rate: 108 P: 68 [place]: 158 QRS: -11 QRSD: 86 T: -4 QT: 331 QTc: 445 Interpretive Statements SINUS TACHYCARDIA VOLTAGE CRITERIA FOR LVH [MEETS CRITERIA IN ONE OF: R(aVL), S(V1), R(V5), R(V5/V6)+S(V1)] Compared to ECG 08/08/2024 09:55:19 ST (T wave) deviation no longer present Electronically Signed On 08-08-2024 16:28:00 CONTROL SYSTEM COMPUTER SCIENTIST by Adwoa Younger
--- NOTE | 2024-08-08 10:08 | PM.CNCAR ---
Assessment and Plan Assessment and plan (1) New onset a-fib: Code(s): I48.91 - Unspecified atrial fibrillation Status: Acute Assessment and Plan: New onset atrial flutter which has spontaneously converted to sinus tachycardia with frequent PAC's. Can consider low dose beta ramya, though I suspect her tachycardia is related to underlying infection/sepsis Continue to monitor on telemetry, if recurrence of AF then can consider anticoagulation Echo has been ordered and will be reviewed Cardiology will sign off please call with questions (2) Acute renal failure: Qualifiers: Acute renal failure type: unspecified Qualified Code(s): N17.9 - Acute kidney failure, unspecified Code(s): N17.9 - Acute kidney failure, unspecified Status: Acute Assessment and Plan: Continue with IV fluids for now, avoid nephrotoxic agents (3) UTI (urinary tract infection): Qualifiers: Hematuria presence: without hematuria Urinary tract infection type: site unspecified Qualified Code(s): N39.0 - Urinary tract infection, site not specified Code(s): N39.0 - Urinary tract infection, site not specified Status: Acute Assessment and Plan: On abx per hospitalist (4) Multifocal pneumonia: Code(s): J18.9 - Pneumonia, unspecified organism Status: Acute Assessment and Plan: On abx per hospitalist History of Present Illness History of Present Illness Consult date/time: 08/08/24 10:08 Requesting physician: Urszula Ewing MD Consult reason: atrial fibrillation Reason For Visit: pneumonia / uti afib w rvr Narrative: Melida Akbar is an 84 year old female with dementia and possible COPD. She is admitted with weakness and a cough. Cardiology is consulted because of atrial fibrillation with rapid ventricular response. Patient denies any cardiac history including atrial fibrillation but she admits she is a poor historian. She denies any history of palpitations, chest pain, swelling. Initially her EKG showed sinus tachycardia with subsequent tracing showing atrial flutter with rapid ventricular response. She was placed on a diltiazem drip and spontaneously converted back to sinus tachycardia. At the time of my evaluation she has no active complaints and is pleasant and cooperative. Review of Systems Review of Systems: All systems reviewed & are unremarkable except as noted in HPI and below PMFSH Past Medical History Medical History History of COPD Social History Social History Smoking status: Former smoker Tobacco type: cigarettes and e-cigarettes/vaping Second hand tobacco smoke exposure: No Smoking end date: 07/28/14 Alcohol intake: never Substance use: never Substance use type: does not use Do You Feel Safe in your Home?: Yes Lack of Transportation: No Lack of Food: Never True Current Housing: I Have Housing Concerned About Future Housing: No Difficulty Paying Gas/Electric Bills: No Difficulty Paying for Meds: No Currently Unemployed: No Education: High School Diploma/GED Difficulty w/ Childcare or Family Care: No Spiritual care concerns: No Meds Home Medications and Allergies Home Medications ?Medication ?Instructions ?Recorded ?Confirmed ?Type No Home Medications 08/07/24 08/07/24 History Allergies Allergy/AdvReac Type Severity Reaction Status Date / Time latex Allergy Rash Verified 08/07/24 12:55 Vital Signs Vital Signs - 24 hr 08/07/24 10:19 08/07/24 10:20 08/07/24 10:21 Temperature 36.9 C Pulse Rate 115 H 114 H 112 H Respiratory Rate 24 H 28 H 21 H Blood Pressure 126/67 126/67 Pulse Oximetry 94 94 Oxygen Delivery Room Air 08/07/24 10:30 08/07/24 10:31 08/07/24 10:45 Temperature Pulse Rate 114 H 117 H 112 H Respiratory Rate 21 H 26 H 21 H Blood Pressure 113/77 Pulse Oximetry 93 93 92 Oxygen Delivery 08/07/24 11:01 08/07/24 11:51 08/07/24 12:00 Temperature Pulse Rate 104 H 105 H 102 H Respiratory Rate 26 H 22 H 23 H Blood Pressure 97/65 L Pulse Oximetry 93 94 94 Oxygen Delivery 08/07/24 12:09 08/07/24 12:16 08/07/24 12:18 Temperature Pulse Rate 101 H 102 H 108 H Respiratory Rate 19 20 21 H Blood Pressure Pulse Oximetry 98 Oxygen Delivery 08/07/24 13:00 08/07/24 13:01 08/07/24 13:15 Temperature Pulse Rate 114 H 112 H 110 H Respiratory Rate 25 H 27 H 26 H Blood Pressure 122/74 Pulse Oximetry 93 93 94 Oxygen Delivery 08/07/24 13:36 08/07/24 13:45 08/07/24 14:11 Temperature Pulse Rate 118 H 115 H 131 H Respiratory Rate 27 H 21 H 22 H Blood Pressure Pulse Oximetry 97 96 94 Oxygen Delivery 08/07/24 14:15 08/07/24 14:37 08/07/24 14:41 Temperature Pulse Rate 130 H 144 H 108 H Respiratory Rate 26 H 14 Blood Pressure Pulse Oximetry 95 93 Oxygen Delivery 08/07/24 14:45 08/07/24 15:50 08/07/24 17:10 Temperature 36.5 C Pulse Rate 90 103 H 96 Respiratory Rate 20 24 H 18 Blood Pressure 133/75 134/71 Pulse Oximetry 93 95 98 Oxygen Delivery 08/07/24 18:00 08/07/24 20:00 08/07/24 22:00 Temperature 37.1 C Pulse Rate 109 H 103 H 95 Respiratory Rate 18 Blood Pressure 124/75 Pulse Oximetry 95 Oxygen Delivery 08/08/24 00:00 08/08/24 00:00 08/08/24 02:00 Temperature 36.9 C Pulse Rate 113 H 105 H 87 Respiratory Rate 20 Blood Pressure 129/77 Pulse Oximetry 96 Oxygen Delivery 08/08/24 04:00 08/08/24 04:00 08/08/24 06:00 Temperature 36.5 C Pulse Rate 80 82 90 Respiratory Rate 20 Blood Pressure 111/54 L Pulse Oximetry 96 Oxygen Delivery 08/08/24 08:00 08/08/24 08:33 08/08/24 08:33 Temperature 35.8 C L Pulse Rate 104 H 94 Respiratory Rate 24 H 18 Blood Pressure 128/66 Pulse Oximetry 95 94 Oxygen Delivery Room Air 08/08/24 08:49 Temperature Pulse Rate 96 Respiratory Rate 18 Blood Pressure Pulse Oximetry Oxygen Delivery Exam Const: General: comfortable, no acute distress, alert and awake Orientation/consciousness: patient oriented x3 HENMT: Head: normal to inspection Eyes: General: appearance normal, both eyes and all related structures Pupils: Equal, round and reactive pupils present Neck: Neck: normal visual inspection, supple and no JVD Resp: Effort & Inspection: normal respiratory effort Auscultation: not clear to auscultation bilaterally, crackles and diminished lung sounds Cardio: Rate: regular rate Rhythm: regular rhythm Heart sounds: S1 normal heart sound present, S2 normal heart sound present and Murmur heart sound present systolic soft GI: Auscultation: normal bowel sounds Skin: General skin exam: normal color Neuro: General: patient oriented x3 Cranial nerves: Yes Equal, round and reactive pupils present Extrem: General: normal to inspection Psych: Appearance: grossly normal Mental Status: mental status grossly normal Results Labs and Meds 08/07/24 11:54 08/07/24 11:54 Lab results: Cardiac Enzymes 08/07/24 Range/Units 11:54 AST 21 (14-36) U/L Troponin I 0.017 (0.000-0.034) ng/mL Coagulation 08/07/24 Range/Units 11:54 PT 16.5 H (11.1-14.7) Seconds APTT 33.3 (22.3-36.8) Seconds CBC 08/07/24 Range/Units 11:54 WBC 23.1 H (4.5-10.0) K/mm3 RBC 4.67 (4.2-5.4) M/mm3 Hgb 14.0 (12.0-15.0) g/dL Hct 41.5 (37.0-47.0) % Plt Count 259 (150-375) k/mm3 Lymph # (Auto) Not Reportable [place] # (Auto) Not Reportable Eos # (Auto) Not Reportable Baso # (Auto) Not Reportable Comprehensive Metabolic Panel 08/07/24 Range/Units 11:54 Sodium 133 L (137-145) mmol/L Potassium 3.5 (3.4-5.0) mmol/L Chloride 102 (98-107) mmol/L Carbon Dioxide 25 (22-30) mmol/L BUN 33 H (7-17) mg/dL Creatinine 1.20 H (0.7-1.0) mg/dL Glucose 161 H (65-110) mg/dL Calcium 8.7 (8.4-10.2) mg/dL AST 21 (14-36) U/L ALT 14 (6-35) U/L Alkaline Phosphatase 81 (38-126) U/L Total Protein 7.0 (6.3-8.2) g/dL Albumin 3.5 (3.5-5.1) g/dL Intake and Output 08/07/24 08/08/24 08/08/24 23:59 07:59 15:59 Intake Total 823 74 6705.7 Balance 664 48 9622.7 Intake: IV 250 50 761.7 Sodium Chloride 0.9% IV 1,000 761.7 ml @ 100 mls/hr IV CONT .Q10H [facility] Rx#:[id number] Azithromycin 500 mg/Ns 250 ml 250 500 mg In 250 ml @ 250 mls/hr IVPB ONCE STA Rx#:[id number] Cefepime 1 gm/Ns 50 ml 1 gm In 50 50 ml @ 100 mls/hr IVPB Q12HR [facility] Rx#:[id number] Oral 0 240 Patient Weight 08/08/24 23:59 Weight 58.6 kg
[2024-08-08] MEDS: AZITHROMYCIN 500 MG/NS 250 ML 500 MG/250 ML BAG 250 MG IVPB (14:27)
--- NOTE | 2024-08-08 17:05 | ECHO_ITS ---
Patient Info Name: Melida Akbar Age: 84 years : 1940 Gender: Female Ht: 65 in Wt: 133 lbs BSA: 1.67 m2 HR: 82 bpm BP: 111 / 54 mmHg Technical Quality: Fair Exam Date: 08/08/2024 10:50 AM Exam Location: Echo Lab Patient Status: Inpatient Admit Date: 08/07/2024 Staff Ordering Physician: Urszula Ewing MD [employer] Rep: Breana Robles RDCS Attending Provider: Urszula Ewing MD Exam Type: CA echo doppler color flow Study Info Indications I48.1 - Persistent atrial fibrillation Complete two-dimensional, color flow and Doppler transthoracic echocardiogram is performed. Summary 1. Complete two-dimensional, color flow and Doppler transthoracic echocardiogram is performed. 2. Left ventricular chamber dimension is normal. 3. There is no increased left ventricular wall thickness. 4. Left ventricular systolic function is normal with an ejection fraction by Biplane Method of Discs of 71 %. 5. The left ventricular diastolic function is grade I diastolic dysfunction. 6. Right ventricular chamber dimension is normal. 7. Right ventricular systolic function is normal. 8. There is mild aortic valve stenosis with a peak velocity of 232 cm/s, mean gradient of 12 mmHg, and aortic valve area of 1.3 cm2. 9. There is trace aortic valve regurgitation. 10. There is moderate aortic valve sclerosis. 11. There is mild tricuspid valve regurgitation. 12. No pulmonary hypertension, estimated pulmonary arterial systolic pressure is 30 mmHg. Left Ventricle Left ventricular chamber dimension is normal. There is no increased left ventricular wall thickness. Left ventricular systolic function is normal with an ejection fraction by Biplane Method of Discs of 71 %. The left ventricular diastolic function is grade I diastolic dysfunction. Right Ventricle Right ventricular chamber dimension is normal. Right ventricular systolic function is normal. Aortic Valve There is trace aortic valve regurgitation. There is mild aortic valve stenosis with a peak velocity of 232 cm/s, mean gradient of 12 mmHg, and aortic valve area of 1.3 cm2. Aortic valve is not well visualized. There is moderate aortic valve sclerosis. Pulmonic Valve There is trace pulmonic regurgitation. Mitral Valve The mitral valve has normal leaflets. There is no mitral valve regurgitation. Tricuspid Valve There is mild tricuspid valve regurgitation. No pulmonary hypertension, estimated pulmonary arterial systolic pressure is 30 mmHg. Inferior Vena Cava Normal inferior vena cava with >50% collapse upon inspiration consistent with normal right atrial pressure, 3 mmHg. Aorta The aortic root size at the sinus of Valsalva is normal. The prox ascending aorta size is normal. Left Ventricular Outflow Tract Name Value Normal LVOT 2D LVOT Diameter 2.0 cm LVOT Doppler LVOT Peak Gradient 6 mmHg LVOT Mean Gradient 3 mmHg LVOT VTI 18 cm LVOT VTI/AV VTI Ratio 0.4 LVOT Stroke Volume 58 ml LVOT CO 5.4 l/min LVOT CI 3.2 l/min/m2 Mitral Valve Name Value Normal MV Doppler MV Decel [facility] 403 cm/s2 MV PHT 66 ms MV Area (PHT) 3.4 cm2 4.0-5.0 MV Diastolic Function MV E Peak Velocity 91 cm/s MV A Peak Velocity 135 cm/s MV E/A 0.7 MV Decel Time 226 ms Tricuspid Valve Name Value Normal TV Regurgitation Doppler TR Peak Velocity 261 cm/s TR Peak Gradient 27 mmHg Estimated PAP/RSVP RA Pressure 3 mmHg <=5 PA Systolic Pressure 30 mmHg <36 RV Systolic Pressure 30 mmHg <36 Aorta Name Value Normal Ascending Aorta Ao Root Diameter (MM) 2.6 cm Ao Root Diam Index (MM) 1.6 cm/m2 Aortic Valve Name Value Normal AV Doppler AV Peak Velocity 232 cm/s AV Peak Gradient 22 mmHg AV Mean Gradient 12 mmHg AV VTI 45 cm AV Area (Cont Eq VTI) 1.3 cm2 >=3.0 AV Area (Cont Eq Tj) 1.6 cm2 AV Regurgitation 2D LVOT Area 3.2 cm2 AV Regurgitation Doppler AR Decel Time 1,[address] [facility] 319 cm/s2 AR PHT 310 ms Ventricles Name Value Normal LV Dimensions 2D/MM IVS Diastolic Thickness (2D) 0.7 cm 0.6-1.0 IVS Diastole Thickness (MM) 0.8 cm 0.6-0.9 LVID Diastole (2D) 3.5 cm 3.8-5.2 LVID Diastole (MM) 4.7 cm 3.8-5.2 LVIW Diastolic Thickness (2D) 0.7 cm 0.6-0.9 LVIW Diastolic Thickness (MM) 0.9 cm 0.6-0.9 LVID Systole (2D) 2.1 cm 2.2-3.5 LVID Systole (MM) 2.6 cm 2.2-3.5 LVOT Diameter 2.0 cm LV Mass (2D Cubed) 64.96 g 67.00-162.00 LV Mass Index (2D Cubed) 39 g/m2 43-95 Relative Wall Thickness (2D) 0.42 LV Mass (MM Cubed) 127.84 g 67.00-162.00 LV Mass Index (MM Cubed) 77 g/m2 43-95 Relative Wall Thickness (MM) 0.37 LV Fractional Shortening/Ejection Fraction 2D/MM LV Fractional Shortening (2D) 43 % 27-45 LV Fractional Shortening (MM) 46 % 27-45 LV EF (MM Teicholz) 77 % 54-74 LV EF (2D Teicholz) 75 % 54-74 LV Diastolic Volume (4C MOD) 45 ml LV EF (4C MOD) 74 % LV Diastolic Volume (2C MOD) 27 ml LV EF (2C MOD) 67 % LV Diastolic Volume (BP MOD) 35 ml 46-106 LV Diastolic Volume Index (BP MOD) 21 ml/m2 29-61 LV Systolic Volume (BP MOD) 10 ml 14-42 LV Systolic Volume Index (BP MOD) 6 ml/m2 8-24 LV EF (BP MOD) 71 % 54-74 LV Diastolic Length (4C) 6.8 cm LV Systolic Length (4C) 5.7 cm LV Stroke Volume (4C MOD) 33 ml Atria Name Value Normal LA Dimensions LA Dimension (MM) 3.7 cm 2.7-3.8 LA Volume (4C A-L) 32 ml LA Volume (BP A-L) 32 ml RA Dimensions RA Area (4C) 11.6 cm2 <=18.0 Report Signatures
[2024-08-09] VITALS (20 sets, daily range): BP systolic 125–171; BP diastolic 62–85; PULSE 95–118; RESP 18–20; TEMP 36.4–36.8; O2SAT 93–98
[2024-08-09] MEDS: SODIUM CHLORIDE 0.9% IV 1,000 ML 100 ML IV CONT
[2024-08-09] MEDS: LEVALBUTEROL NEB 1.25 MG/3 ML 0.63 MG INHALATION ×4 (03:20→20:00)
[2024-08-09] MEDS: HEPARIN SODIUM 5,000 UNITS/ML VIAL 5000 UNITS SUB-Q ×3 (06:40→20:59)
[2024-08-09] MEDS: methylPREDNISolone SOD SUCC 125 MG VIAL 60 MG IV PUSH (06:41)
--- NOTE | 2024-08-09 09:00 | P.PNIM_ITS ---
Progress Note: A&P Assessment and Plan (1) Severe sepsis: Code(s): A41.9 - Sepsis, unspecified organism; R65.20 - Severe sepsis without septic shock Status: Acute (2) Multifocal pneumonia: Code(s): J18.9 - Pneumonia, unspecified organism Status: Acute (3) UTI (urinary tract infection): Qualifiers: Hematuria presence: without hematuria Urinary tract infection type: site unspecified Qualified Code(s): N39.0 - Urinary tract infection, site not specified Code(s): N39.0 - Urinary tract infection, site not specified Status: Acute (4) Atrial fibrillation with RVR: Code(s): I48.91 - Unspecified atrial fibrillation Status: Acute (5) Acute renal failure: Qualifiers: Acute renal failure type: unspecified Qualified Code(s): N17.9 - Acute kidney failure, unspecified Code(s): N17.9 - Acute kidney failure, unspecified Status: Acute (6) General weakness: Code(s): R53.1 - Weakness Status: Acute (7) New onset a-fib: Code(s): I48.91 - Unspecified atrial fibrillation Status: Acute Plan This is 84-year-old female presents to the ER with generalized weakness. She reported some cough over the past week. She has also been sleeping more than usual. Today her breathing seemed off and hence was prompted to bring her to the ER for evaluation. Patient also reported pain in her left chest. On arrival to the ED patient was tachycardic. Mild hypotension on arrival to the ED. Laboratory evaluation revealed WBC of 23 K creatinine 1.2 mild hyponatremia at 133 lactate was normal at 1.8. Troponin was negative CRP elevated at 32.3 BNP 1180. Urinalysis was positive for UTI. Influenza RSV and COVID swab was negative. EKG showed atrial flutter/tachycardia with rapid ve ntricular response with aberrant conduction or ventricular premature complexes. CT scan of the chest showed bilateral pneumonia. Patient was diagnosed with severe sepsis with meeting SIRS criteria. Patient was started on azithromycin and ceftriaxone. Blood culture obtained which came back positive for Gram-positive cocci in chains. Identified as Streptococcus pneumonia. Continue on cefepime IV daily. Urine culture with E coli susceptibility pending COPD exacerbation possible remote history of smoking. Received methylprednisolone 125 mg in the ED. Currently on methylprednisone. Will stop med hard prednisolone AFib with RVR new diagnosis. On Cardizem p.r.n.. Cardiology consulted. Echocardiogram with EF 71% grade 1 diastolic dysfunction mild aortic valve stenosis. No pulmonary hypertension. She has spontaneously converted to sinus rhythm with frequent PACs. Likely related to underlying sepsis. No anticoagulation needed. DWIGHT mild related to sepsis follow-up labs ordered CT with no obstruction Delirium with intermittent agitation requiring Zyprexa. Currently has a sitter. Continue to monitor DVT prophylaxis on subQ heparin Code status do not resuscitate Subjective Date/time seen: 08/09/24 09:00 Interval history: Chart reviewed. No overnight events reported. Patient still confused to some extent. Did not require any anti psychotic. Has a sitter at bedside. Review of Systems Review of Systems: All systems reviewed & are unremarkable except as noted in HPI and below Exam Narrative: GENERAL: Well-appearing in no acute distress. Well-nourished. - EYES: EOMI. Anicteric. - HENT: Moist mucous membranes. - LUNGS: Coarse breath sound bilateral, tachypnea - CARDIOVASCULAR: Mildly Tachycardia, i rregular in rhythm. No murmur. No JVD. - ABDOMEN: Soft, non-tender and non-dist ended. No palpable masses. - EXTREMITIES: No edema. Peripheral puls es 2+. Non-tender. - NEUROLOGIC: No focal neurological defi cits. CN II-XII grossly intact. General weakness - PSYCHIATRIC: Awake, Alert and oriented x 3. Appropriate mood and affect. - SKIN: No rashes or lesions. Warm. - LYMPH: No cervical lymphadenopathy. Objective Data Vital Signs Vital Signs: Vital Signs - 24 hr 08/08/24 10:00 08/08/24 12:00 08/08/24 12:00 Temperature 96.1 F L Pulse Rate 95 93 97 Respiratory Rate 24 H Blood Pressure 134/63 Pulse Oximetry 97 Oxygen Delivery 08/08/24 14:00 08/08/24 14:24 08/08/24 14:31 Temperature Pulse Rate 111 H 100 102 H Respiratory Rate 18 18 Blood Pressure Pulse Oximetry Oxygen Delivery 08/08/24 16:00 08/08/24 16:00 08/08/24 18:00 Temperature 97.4 F L Pulse Rate 108 H 105 H 117 H Respiratory Rate 16 Blood Pressure 133/62 Pulse Oximetry 96 Oxygen Delivery 08/08/24 20:00 08/08/24 20:22 08/08/24 21:32 Temperature 97.6 F Pulse Rate 108 H 103 H 101 H Respiratory Rate 18 18 Blood Pressure 135/64 Pulse Oximetry 97 Oxygen Delivery 08/08/24 22:00 08/08/24 23:47 08/09/24 00:00 Temperature 97.9 F Pulse Rate 105 H 110 H 108 H Respiratory Rate 20 Blood Pressure 120/56 L Pulse Oximetry 96 Oxygen Delivery 08/09/24 02:00 08/09/24 04:00 08/09/24 04:33 Temperature 97.7 F Pulse Rate 104 H 98 97 Respiratory Rate 20 Blood Pressure 125/69 Pulse Oximetry 96 Oxygen Delivery 08/09/24 06:00 08/09/24 07:38 08/09/24 07:38 Temperature Pulse Rate 99 95 Respiratory Rate 18 Blood Pressure Pulse Oximetry 96 Oxygen Delivery Room Air 08/09/24 07:51 08/09/24 08:00 Temperature 97.6 F Pulse Rate 100 108 H Respiratory Rate 18 20 Blood Pressure 129/85 Pulse Oximetry 98 Oxygen Delivery Intake/Output Intake/Output: Intake & Output 08/06/24 08/07/24 08/08/24 08/09/24 23:59 23:59 23:59 23:59 Intake Total 300 2831.7 790 Output Total 200 600 Balance 300 2631.7 190 Meds/Results Medications: Active Medications Generic Name Dose Route Start Last Admin Trade Name Freq PRN Reason Stop Dose Admin Albuterol/Ipratropium 3 ml 08/07/24 17:05 Ipratropium 0.5 Mg/Albuterol Sulfate 2.5 Mg Ampul.Neb 3 Ml INHALATION Q6HRT PRN Shortness Of Breath Or Wheezing Heparin Sodium (Porcine) 5,000 units 08/08/24 08:00 08/09/24 06:40 Heparin Sodium 5,000 Units/Ml Vial SUB-Q 5,000 units Q8HR KELLY Administration Azithromycin 500 mg in 250 mls @ 250 mls/hr 08/08/24 14:00 08/08/24 14:27 Zithromax IVPB 250 mls/hr Q24H KELLY Administration Sodium Chloride 1,000 mls @ 100 mls/hr 08/07/24 17:05 08/09/24 00:00 Normal Saline Iv IV CONT 100 mls/hr .Q10H KELLY Administration Diltiazem HCl 100 mg in 100 mls @ 5 mls/hr 08/07/24 17:15 08/08/24 01:37 Cardizem 100 Mg/100 Ml IV CONT Not Given .Q20H KELLY 5 MG/HR Cefepime HCl 1 gm in 50 mls @ 100 mls/hr 08/08/24 11:00 08/08/24 23:08 Maxipime 1 Gm/Ns 50 Ml IVPB 100 mls/hr Q12H KELLY Administration Levalbuterol HCl 0.63 mg 08/07/24 20:00 08/09/24 07:38 Levalbuterol Neb 1.25 Mg/3 Ml INHALATION 0.63 mg Q6HRT KELLY Administration Methylprednisolone Sodium Succinate 60 mg 08/08/24 08:00 08/09/24 06:41 Methylprednisolone Sod Succ 125 Mg Vial IV PUSH 60 mg Q8HR KELLY Administration Perflutren Lipid Microsphere 0 ml 08/07/24 17:05 Perflutren Lipid Microspheres 1.5 Ml Vial Diluted To 10 Ml Total Volume IV PUSH 08/10/24 17:05 ONCE PRN adequate visualization Protocol Radiology Results: ITS Impressions Chest X-Ray 08/07/24 11:23 IMPRESSION: Bibasilar atelectasis versus pneumonia with left pleural effusion. Chest/Abdomen/Pelvis CT 08/07/24 13:39 IMPRESSION: CHEST: 1. Bilateral basal pneumonia with left minimal effusion. 2. No pulmonary embolism. ABDOMEN/PELVIS: 1. No evidence of appendicitis, diverticulitis or intestinal obstruction. 2. Left renal cyst. A Labs Labs: Laboratory Results - last 24 hr 08/07/24 08/07/24 08/07/24 11:40 11:54 12:08 WBC 23.1 H RBC 4.67 Hgb 14.0 Hct 41.5 MCV 88.9 MCH 30.0 MCHC 33.7 RDW 13.6 Plt Count 259 MPV 9.4 Immature Gran % (Auto) Not Reportable Neut % (Auto) Not Reportable Lymph % (Auto) Not Reportable [place] % (Auto) Not Reportable Eos % (Auto) Not Reportable Baso % (Auto) Not Reportable Lymph # (Auto) Not Reportable [place] # (Auto) Not Reportable Eos # (Auto) Not Reportable Baso # (Auto) Not Reportable Abs Immat Gran (auto) Not Reportable Absolute Neuts (auto) Not Reportable Absolute Nucleated RBC Not Reportable Total Counted 100 Neutrophils % (Manual) 77 H Band Neutrophils % 15 H Lymphocytes % (Manual) 2 L Monocytes % (Manual) 6 Eosinophils % (Manual) 0 Basophils % (Manual) 0 Nucleated RBC % Not Reportable Abs Neuts (Manual) 21.25 H Abs Lymphs (Manual) 0.46 L Abs Monocytes (Manual) 1.38 H Absolute Eos (Manual) 0.00 L Abs Basophils (Manual) 0.00 Platelet Estimate Adequate [place] Cells 1+ Schistocytes None seen PT 16.5 H INR 1.3 APTT 33.3 Sodium 133 L Potassium 3.5 Chloride 102 Carbon Dioxide 25 Anion Gap 6 BUN 33 H Creatinine 1.20 H Estim Creat Clear Calc Not Reportable Estimated GFR 43 L Glucose 161 H Lactic Acid 1.8 Calcium 8.7 Total Bilirubin 2.0 H AST 21 ALT 14 Alkaline Phosphatase 81 Troponin I 0.017 C-Reactive Protein 32.3 H NT-Pro-B Natriuret Pep 1180 H Total Protein 7.0 Albumin 3.5 Urine Color [place] H Urine Appearance Cloudy H Urine pH 5.0 Ur Specific [place] 1.024 Urine Protein 1+ H Urine Glucose (UA) Negative Urine Ketones Trace H Ur Blood (Man) 1+ H Urine Nitrate Positive H Urine Bilirubin 2+ H Urine Urobilinogen 1.0 Leukocyte Esterase Rfl 2+ H Urine RBC 0-2 Urine WBC 51-100 H Ur Squamous Epith Cells Few Urine Bacteria 4+ H Urine Casts >20 Hyaline Casts Present Urine Mucus Present Influenza A (RT-PCR) Negative Influenza B (RT-PCR) Negative RSV (RT-PCR) Negative SARS-CoV-2 RNA (RT-PCR) Negative
[2024-08-09 09:37] LABS: Basophils Percent Auto 0.1 % (0.2-1.2); Hematocrit 34.7 % (37.0-47.0); Hemoglobin 11.8 g/dL (12.0-15.0); Immature Granulocyte Absolute 0.08 K/mm3 (0.00-0.031); Immature Granulocyte Percent A 0.8 % (0-0.5); Lymphocytes Absolute Auto 0.22 K/mm3 (0.9-3.2); Lymphocytes Percent Auto 2.3 % (18.3-44.2); Mean Corpuscular Hemoglobin 29.9 pg (26-34); Mean Corpuscular Volume 88.1 fl (80-100); Mean Platelet Volume 9.4 fl (7.4-10.4); Monocytes Absolute Auto 0.3 K/mm3 (0.1-0.6); Monocytes Percent Auto 2.8 % (2.6-8.5); Platelet Count Result 248 k/mm3 (150-375); Red Blood Count 3.94 M/mm3 (4.2-5.4); Red Cell Distribution Width 13.6 % (11.5-14.5); White Blood Count 9.5 K/mm3 (4.5-10.0)
[2024-08-09 09:54] LABS: Alanine Aminotransferase 14 U/L (6-35); Albumin Level 2.9 g/dL (3.5-5.1); Alkaline Phosphatase 74 U/L (38-126); Anion Gap 4 mmol/L (4-12); Aspartate Amino Transferase 21 U/L (14-36); Bilirubin,Total 0.6 mg/dL (0.2-1.3); Blood Urea Nitrogen 20 mg/dL (7-17); Calcium 7.4 mg/dL (8.4-10.2); Carbon Dioxide 25 mmol/L (22-30); Chloride 111 mmol/L (98-107); Estimated CRCL calculation 42 ml/min; Estimated Glomerular Filt Rate > 60; Glucose 156 mg/dL (65-110); Magnesium 2.2 mg/dL (1.6-2.3); Potassium 2.6 mmol/L (3.4-5.0); Sodium 140 mmol/L (137-145)
[2024-08-09] MEDS: CEFEPIME 1 GM/NS 50 ML 1 GM/50 ML BAG IVPB (10:21)
[2024-08-09] MEDS: POTASSIUM CHLORIDE 20 MEQ ER TABLET 80 MEQ PO (11:40)
[2024-08-09] MEDS: AZITHROMYCIN 250 MG TABLET 500 MG PO (13:56)
[2024-08-09 15:15] LABS: Potassium 2.8 mmol/L (3.4-5.0)
[2024-08-09] MEDS: cefTRIAXone 2 GM/NS 100 ML 2 GM/100 ML BAG IVPB (17:15)
--- NOTE | 2024-08-09 18:51 | PC.NURSE ---
This patient, Melida Akbar, was received from IMU on 08/09/24 at 1851. Patient/family oriented to unit policies and routines
[2024-08-10] VITALS (13 sets, daily range): BP systolic 136–165; BP diastolic 71–80; PULSE 91–116; RESP 18–24; TEMP 36.1–36.2; O2SAT 94–97
[2024-08-10 05:25] LABS: Basophils Percent Auto 0.2 % (0.2-1.2); Hematocrit 35.8 % (37.0-47.0); Hemoglobin 12.2 g/dL (12.0-15.0); Immature Granulocyte Percent A 0.8 % (0-0.5); Lymphocytes Absolute Auto 0.84 K/mm3 (0.9-3.2); Lymphocytes Percent Auto 6.9 % (18.3-44.2); Mean Corpuscular HGB Conc 34.1 g/dl (32-36); Mean Corpuscular Hemoglobin 29.8 pg (26-34); Mean Corpuscular Volume 87.5 fl (80-100); Mean Platelet Volume 9.4 fl (7.4-10.4); Monocytes Absolute Auto 0.9 K/mm3 (0.1-0.6); Neutrophils Absolute Auto 10.3 K/mm3 (1.3-6.7); Neutrophils Percent Auto 85.1 % (45.5-73.1); Platelet Count Result 285 k/mm3 (150-375); Red Blood Count 4.09 M/mm3 (4.2-5.4); Red Cell Distribution Width 14.2 % (11.5-14.5); White Blood Count 12.1 K/mm3 (4.5-10.0)
[2024-08-10] MEDS: HEPARIN SODIUM 5,000 UNITS/ML VIAL 5000 UNITS SUB-Q ×3 (05:35→20:44)
[2024-08-10 05:40] LABS: Alanine Aminotransferase 21 U/L (6-35); Alkaline Phosphatase 73 U/L (38-126); Anion Gap 3 mmol/L (4-12); Aspartate Amino Transferase 37 U/L (14-36); Bilirubin,Total 0.6 mg/dL (0.2-1.3); Blood Urea Nitrogen 19 mg/dL (7-17); Calcium 7.7 mg/dL (8.4-10.2); Carbon Dioxide 26 mmol/L (22-30); Chloride 113 mmol/L (98-107); Estimated CRCL calculation 42 ml/min; Estimated Glomerular Filt Rate > 60; Glucose 87 mg/dL (65-110); Magnesium 2.2 mg/dL (1.6-2.3); Potassium 3.9 mmol/L (3.4-5.0); Sodium 142 mmol/L (137-145)
[2024-08-10] MEDS: AZITHROMYCIN 250 MG TABLET 500 MG PO (08:37)
[2024-08-10] MEDS: LEVALBUTEROL NEB 1.25 MG/3 ML 0.63 MG INHALATION ×2 (09:11→13:23)
--- NOTE | 2024-08-10 12:14 | P.PNIM_ITS ---
Progress Note: A&P Assessment and Plan (1) Severe sepsis: Code(s): A41.9 - Sepsis, unspecified organism; R65.20 - Severe sepsis without septic shock Status: Acute (2) Multifocal pneumonia: Code(s): J18.9 - Pneumonia, unspecified organism Status: Acute (3) UTI (urinary tract infection): Qualifiers: Hematuria presence: without hematuria Urinary tract infection type: site unspecified Qualified Code(s): N39.0 - Urinary tract infection, site not specified Code(s): N39.0 - Urinary tract infection, site not specified Status: Acute (4) Atrial fibrillation with RVR: Code(s): I48.91 - Unspecified atrial fibrillation Status: Acute (5) Acute renal failure: Qualifiers: Acute renal failure type: unspecified Qualified Code(s): N17.9 - Acute kidney failure, unspecified Code(s): N17.9 - Acute kidney failure, unspecified Status: Acute (6) General weakness: Code(s): R53.1 - Weakness Status: Acute (7) New onset a-fib: Code(s): I48.91 - Unspecified atrial fibrillation Status: Acute Plan This is 84-year-old female presents to the ER with generalized weakness. She reported some cough over the past week. She has also been sleeping more than usual. Today her breathing seemed off and hence was prompted to bring her to the ER for evaluation. Patient also reported pain in her left chest. On arrival to the ED patient was tachycardic. Mild hypotension on arrival to the ED. Laboratory evaluation revealed WBC of 23 K creatinine 1.2 mild hyponatremia at 133 lactate was normal at 1.8. Troponin was negative CRP elevated at 32.3 BNP 1180. Urinalysis was positive for UTI. Influenza RSV and COVID swab was negative. EKG showed atrial flutter/tachycardia with rapid ve ntricular response with aberrant conduction or ventricular premature complexes. CT scan of the chest showed bilateral pneumonia. Patient was diagnosed with severe sepsis with meeting SIRS criteria. Patient was started on azithromycin and ceftriaxone. Blood culture obtained which came back positive for Gram-positive cocci in chains. Identified as Streptococcus pneumonia. Continue on cefepime IV daily. Switch to ceftriaxone Urine culture with E coli susceptible to ceftriaxone COPD exacerbation possible remote history of smoking. Received methylprednisolone 125 mg in the ED. Currently on methylprednisone. Stopped methylprednisone AFib with RVR new diagnosis. On Cardizem p.r.n.. Cardiology consulted. Echocardiogram with EF 71% grade 1 diastolic dysfunction mild aortic valve stenosis. No pulmonary hypertension. She has spontaneously converted to sinus rhythm with frequent PACs. Likely related to underlying sepsis. No anticoagulation needed. DWIGHT mild related to sepsis follow-up labs ordered CT with no obstruction Delirium with intermittent agitation requiring Zyprexa. Currently has a sitter. Continue to monitor DVT prophylaxis on subQ heparin Code status do not resuscitate Subjective Date/time seen: 08/10/24 12:14 Interval history: No overnight events. Patient continues to be confused. Did not sleep well last night. Denies any complaints. Review of Systems Review of Systems: All systems reviewed & are unremarkable except as noted in HPI and below Exam Narrative: GENERAL: Well-appearing in no acute distress. Well-nourished. - EYES: EOMI. Anicteric. - HENT: Moist mucous membranes. - LUNGS: Coarse breath sound bilateral, no respiratory distress - CARDIOVASCULAR: Irregular in rhythm. Rate controlled No murmur. No JVD. - ABDOMEN: Soft, non-tender and non-dist ended. No palpable masses. - EXTREMITIES: No edema. Peripheral puls es 2+. Non-tender. - NEUROLOGIC: No focal neurological defi cits. CN II-XII grossly intact. General weakness - PSYCHIATRIC: Awake, Alert and oriented x 1-2. Appropriate mood and affect. - SKIN: No rashes or lesions. Warm. - LYMPH: No cervical lymphadenopathy. Objective Data Vital Signs Vital Signs: Vital Signs - 24 hr 08/09/24 13:22 08/09/24 13:31 08/09/24 14:00 Temperature Pulse Rate 112 H 114 H 108 H Respiratory Rate 18 18 Blood Pressure Pulse Oximetry Oxygen Delivery 08/09/24 16:00 08/09/24 18:54 08/09/24 20:00 Temperature 97.5 F L Pulse Rate 105 H 104 H 104 H Respiratory Rate 20 18 18 Blood Pressure 126/72 147/72 H Pulse Oximetry 98 95 95 Oxygen Delivery Room Air 08/09/24 20:00 08/09/24 20:00 08/09/24 20:05 Temperature Pulse Rate 99 99 Respiratory Rate 18 Blood Pressure Pulse Oximetry 95 Oxygen Delivery BiPAP 08/09/24 20:15 08/09/24 20:44 08/10/24 00:00 Temperature 98.2 F Pulse Rate 101 H 118 H 99 Respiratory Rate 18 20 Blood Pressure 171/69 H Pulse Oximetry 93 Oxygen Delivery 08/10/24 04:00 08/10/24 06:12 08/10/24 08:40 Temperature 97.2 F L Pulse Rate 108 H 96 Respiratory Rate 20 Blood Pressure 136/71 Pulse Oximetry 95 Oxygen Delivery Room Air 08/10/24 08:40 08/10/24 09:14 08/10/24 09:14 Temperature Pulse Rate 91 105 H Respiratory Rate 18 Blood Pressure Pulse Oximetry 94 Oxygen Delivery Room Air 08/10/24 09:19 Temperature Pulse Rate 94 Respiratory Rate 18 Blood Pressure Pulse Oximetry Oxygen Delivery Intake/Output Intake/Output: Intake & Output 08/07/24 08/08/24 08/09/24 08/10/24 23:59 23:59 23:59 23:59 Intake Total 300 2881.7 1810 660 Output Total 200 600 Balance 300 2681.7 1210 660 Meds/Results Medications: Active Medications Generic Name Dose Route Start Last Admin Trade Name Freq PRN Reason Stop Dose Admin Albuterol/Ipratropium 3 ml 08/07/24 17:05 Ipratropium 0.5 Mg/Albuterol Sulfate 2.5 Mg Ampul.Neb 3 Ml INHALATION Q6HRT PRN Shortness Of Breath Or Wheezing Azithromycin 500 mg 08/09/24 12:35 08/10/24 08:37 Azithromycin 250 Mg Tablet PO 08/11/24 09:01 500 mg DAILY KELLY Administration Heparin Sodium (Porcine) 5,000 units 08/08/24 08:00 08/10/24 05:35 Heparin Sodium 5,000 Units/Ml Vial SUB-Q 5,000 units Q8HR KELLY Administration Diltiazem HCl 100 mg in 100 mls @ 5 mls/hr 08/07/24 17:15 08/08/24 01:37 Cardizem 100 Mg/100 Ml IV CONT Not Given .Q20H KELLY 5 MG/HR Ceftriaxone Sodium 2 gm in 100 mls @ 200 mls/hr 08/09/24 18:00 08/09/24 17:15 Rocephin 2 Gm/Ns 100 Ml IVPB 200 mls/hr Q24H KELLY Administration Levalbuterol HCl 0.63 mg 08/07/24 20:00 08/10/24 09:11 Levalbuterol Neb 1.25 Mg/3 Ml INHALATION 0.63 mg Q6HRT KELLY Administration Perflutren Lipid Microsphere 0 ml 08/07/24 17:05 Perflutren Lipid Microspheres 1.5 Ml Vial Diluted To 10 Ml Total Volume IV PUSH 08/10/24 17:05 ONCE PRN adequate visualization Protocol Radiology Results: ITS Impressions Chest X-Ray 08/07/24 11:23 IMPRESSION: Bibasilar atelectasis versus pneumonia with left pleural effusion. Chest/Abdomen/Pelvis CT 08/07/24 13:39 IMPRESSION: CHEST: 1. Bilateral basal pneumonia with left minimal effusion. 2. No pulmonary embolism. ABDOMEN/PELVIS: 1. No evidence of appendicitis, diverticulitis or intestinal obstruction. 2. Left renal cyst. A Labs Labs: Laboratory Results - last 24 hr 08/09/24 08/10/24 14:58 04:50 WBC 12.1 H RBC 4.09 L Hgb 12.2 Hct 35.8 L MCV 87.5 MCH 29.8 MCHC 34.1 RDW 14.2 Plt Count 285 MPV 9.4 Immature Gran % (Auto) 0.8 H Neut % (Auto) 85.1 H Lymph % (Auto) 6.9 L [place] % (Auto) 7.0 Eos % (Auto) 0.0 Baso % (Auto) 0.2 Lymph # (Auto) 0.84 L [place] # (Auto) 0.9 H Eos # (Auto) 0.0 Baso # (Auto) 0.0 Abs Immat Gran (auto) 0.10 H Absolute Neuts (auto) 10.3 H Absolute Nucleated RBC 0.000 Nucleated RBC % 0.0 Sodium 142 Potassium 2.8 L* 3.9 Chloride 113 H Carbon Dioxide 26 Anion Gap 3 L BUN 19 H Creatinine 0.70 Estim Creat Clear Calc 42 Estimated GFR > 60 Glucose 87 Calcium 7.7 L Magnesium 2.2 Total Bilirubin 0.6 AST 37 H ALT 21 Alkaline Phosphatase 73 Total Protein 6.0 L Albumin 3.0 L
[2024-08-10] MEDS: ACETAMINOPHEN 325 MG TABLET 650 MG PO (13:20)
[2024-08-10] MEDS: OLANZapine 5 MG, WATER, STERILE FOR INJECTION 2.1 ML IM (13:31)
[2024-08-10] MEDS: cefTRIAXone 2 GM/NS 100 ML 2 GM/100 ML BAG IVPB (17:07)
[2024-08-10] MEDS: MELATONIN 5 MG TABLET PO (20:45)
[2024-08-11] VITALS (14 sets, daily range): BP systolic 139–168; BP diastolic 71–85; PULSE 84–115; RESP 18–22; TEMP 36.6–36.8; O2SAT 97–99
[2024-08-11] MEDS: LEVALBUTEROL NEB 1.25 MG/3 ML 0.63 MG INHALATION ×3 (03:16→18:16)
[2024-08-11] MEDS: HEPARIN SODIUM 5,000 UNITS/ML VIAL 5000 UNITS SUB-Q ×3 (05:05→20:39)
[2024-08-11] MEDS: AZITHROMYCIN 250 MG TABLET 500 MG PO (08:00)
[2024-08-11 08:09] LABS: Basophils Percent Auto 0.4 % (0.2-1.2); Eosinophils Absolute Auto 0.1 K/mm3 (0-0.3); Eosinophils Percent Auto 0.7 % (0-4.4); Hematocrit 39.6 % (37.0-47.0); Hemoglobin 13.2 g/dL (12.0-15.0); Immature Granulocyte Absolute 0.13 K/mm3 (0.00-0.031); Immature Granulocyte Percent A 1.6 % (0-0.5); Lymphocytes Absolute Auto 1.06 K/mm3 (0.9-3.2); Lymphocytes Percent Auto 12.7 % (18.3-44.2); Mean Corpuscular HGB Conc 33.3 g/dl (32-36); Mean Corpuscular Hemoglobin 29.2 pg (26-34); Mean Corpuscular Volume 87.6 fl (80-100); Mean Platelet Volume 9.1 fl (7.4-10.4); Monocytes Absolute Auto 0.8 K/mm3 (0.1-0.6); Monocytes Percent Auto 9.1 % (2.6-8.5); Neutrophils Absolute Auto 6.3 K/mm3 (1.3-6.7); Neutrophils Percent Auto 75.5 % (45.5-73.1); Platelet Count Result 264 k/mm3 (150-375); Red Blood Count 4.52 M/mm3 (4.2-5.4); Red Cell Distribution Width 14.2 % (11.5-14.5); White Blood Count 8.4 K/mm3 (4.5-10.0)
[2024-08-11 08:28] LABS: Alanine Aminotransferase 27 U/L (6-35); Albumin Level 2.9 g/dL (3.5-5.1); Alkaline Phosphatase 72 U/L (38-126); Anion Gap 3 mmol/L (4-12); Aspartate Amino Transferase 34 U/L (14-36); Bilirubin,Total 0.8 mg/dL (0.2-1.3); Blood Urea Nitrogen 15 mg/dL (7-17); Calcium 7.7 mg/dL (8.4-10.2); Carbon Dioxide 27 mmol/L (22-30); Chloride 107 mmol/L (98-107); Estimated CRCL calculation 48 ml/min; Estimated Glomerular Filt Rate > 60; Glucose 84 mg/dL (65-110); Potassium 3.4 mmol/L (3.4-5.0); Sodium 137 mmol/L (137-145)
--- NOTE | 2024-08-11 12:41 | P.PNIM_ITS ---
Progress Note: A&P Assessment and Plan (1) Severe sepsis: Code(s): A41.9 - Sepsis, unspecified organism; R65.20 - Severe sepsis without septic shock Status: Acute (2) Multifocal pneumonia: Code(s): J18.9 - Pneumonia, unspecified organism Status: Acute (3) UTI (urinary tract infection): Qualifiers: Hematuria presence: without hematuria Urinary tract infection type: site unspecified Qualified Code(s): N39.0 - Urinary tract infection, site not specified Code(s): N39.0 - Urinary tract infection, site not specified Status: Acute (4) Atrial fibrillation with RVR: Code(s): I48.91 - Unspecified atrial fibrillation Status: Acute (5) Acute renal failure: Qualifiers: Acute renal failure type: unspecified Qualified Code(s): N17.9 - Acute kidney failure, unspecified Code(s): N17.9 - Acute kidney failure, unspecified Status: Acute (6) General weakness: Code(s): R53.1 - Weakness Status: Acute (7) New onset a-fib: Code(s): I48.91 - Unspecified atrial fibrillation Status: Acute Plan This is 84-year-old female presents to the ER with generalized weakness. She reported some cough over the past week. She has also been sleeping more than usual. Today her breathing seemed off and hence was prompted to bring her to the ER for evaluation. Patient also reported pain in her left chest. On arrival to the ED patient was tachycardic. Mild hypotension on arrival to the ED. Laboratory evaluation revealed WBC of 23 K creatinine 1.2 mild hyponatremia at 133 lactate was normal at 1.8. Troponin was negative CRP elevated at 32.3 BNP 1180. Urinalysis was positive for UTI. Influenza RSV and COVID swab was negative. EKG showed atrial flutter/tachycardia with rapid ve ntricular response with aberrant conduction or ventricular premature complexes. CT scan of the chest showed bilateral pneumonia. Patient was diagnosed with severe sepsis with meeting SIRS criteria. Patient was started on azithromycin and ceftriaxone. Blood culture obtained which came back positive for Gram-positive cocci in chains. Identified as Streptococcus pneumonia. Continue on cefepime IV daily. Switch to ceftriaxone which will be continued Urine culture with E coli susceptible to ceftriaxone COPD exacerbation possible remote history of smoking. Received methylprednisolone 125 mg in the ED. Currently on methylprednisone. Stopped methylprednisone AFib with RVR new diagnosis. On Cardizem p.r.n.. Cardiology consulted. Echocardiogram with EF 71% grade 1 diastolic dysfunction mild aortic valve stenosis. No pulmonary hypertension. She has spontaneously converted to sinus rhythm with frequent PACs. Likely related to underlying sepsis. No anticoagulation needed. DWIGHT mild related to sepsis follow-up labs ordered CT with no obstruction Delirium with intermittent agitation requiring Zyprexa. Currently has a sitter. Continue to monitor DVT prophylaxis on subQ heparin Code status do not resuscitate Subjective Date/time seen: 08/11/24 12:41 Interval history: No overnight events. Patient is sleeping this a.m. no other complaints. Review of Systems Review of Systems: All systems reviewed & are unremarkable except as noted in HPI and below Exam Narrative: GENERAL: Well-appearing in no acute distress. Well-nourished. - EYES: EOMI. Anicteric. - HENT: Moist mucous membranes. - LUNGS: Coarse breath sound bilateral, no respiratory distress - CARDIOVASCULAR: Irregular in rhythm. Rate controlled No murmur. No JVD. - ABDOMEN: Soft, non-tender and non-dist ended. No palpable masses. - EXTREMITIES: No edema. Peripheral puls es 2+. Non-tender. - NEUROLOGIC: No focal neurological defi cits. CN II-XII grossly intact. General weakness - PSYCHIATRIC: Awake, Alert and oriented x 1-2. Appropriate mood and affect. - SKIN: No rashes or lesions. Warm. - LYMPH: No cervical lymphadenopathy. Objective Data Vital Signs Vital Signs: Vital Signs - 24 hr 08/10/24 13:12 08/10/24 13:23 08/10/24 13:32 Temperature Pulse Rate 111 H 109 H 116 H Respiratory Rate 24 H 18 18 Blood Pressure 160/79 H Pulse Oximetry 97 Oxygen Delivery 08/10/24 16:00 08/10/24 20:00 08/10/24 20:02 Temperature Pulse Rate 107 H 106 H Respiratory Rate Blood Pressure Pulse Oximetry Oxygen Delivery Room Air 08/10/24 20:49 08/11/24 00:00 08/11/24 03:16 Temperature 97.0 F L Pulse Rate 96 84 93 Respiratory Rate 20 18 Blood Pressure 165/80 H Pulse Oximetry 94 Oxygen Delivery 08/11/24 03:24 08/11/24 04:00 08/11/24 08:00 Temperature Pulse Rate 98 96 92 Respiratory Rate 18 Blood Pressure Pulse Oximetry Oxygen Delivery Intake/Output Intake/Output: Intake & Output 08/08/24 08/09/24 08/10/24 08/11/24 23:59 23:59 23:59 23:59 Intake Total 2881.7 1910 1000 300 Output Total 200 600 Balance 2681.7 1310 1000 300 Meds/Results Medications: Active Medications Generic Name Dose Route Start Last Admin Trade Name Freq PRN Reason Stop Dose Admin Acetaminophen 650 mg 08/10/24 13:08 08/10/24 13:20 Acetaminophen 325 Mg Tablet PO 650 mg Q6H PRN Administration Mild Pain (1-3) or Fever Albuterol/Ipratropium 3 ml 08/07/24 17:05 Ipratropium 0.5 Mg/Albuterol Sulfate 2.5 Mg Ampul.Neb 3 Ml INHALATION Q6HRT PRN Shortness Of Breath Or Wheezing Heparin Sodium (Porcine) 5,000 units 08/08/24 08:00 08/11/24 05:05 Heparin Sodium 5,000 Units/Ml Vial SUB-Q 5,000 units Q8HR KELLY Administration Ceftriaxone Sodium 2 gm in 100 mls @ 200 mls/hr 08/09/24 18:00 08/10/24 17:37 Rocephin 2 Gm/Ns 100 Ml IVPB Infused Q24H KELLY Infusion Levalbuterol HCl 0.63 mg 08/07/24 20:00 08/11/24 07:33 Levalbuterol Neb 1.25 Mg/3 Ml INHALATION Not Given Q6HRT KELLY Melatonin 5 mg 08/10/24 21:00 08/10/24 20:45 Melatonin 5 Mg Tablet PO 5 mg HS KELLY Administration Radiology Results: ITS Impressions Chest X-Ray 08/07/24 11:23 IMPRESSION: Bibasilar atelectasis versus pneumonia with left pleural effusion. Chest/Abdomen/Pelvis CT 08/07/24 13:39 IMPRESSION: CHEST: 1. Bilateral basal pneumonia with left minimal effusion. 2. No pulmonary embolism. ABDOMEN/PELVIS: 1. No evidence of appendicitis, diverticulitis or intestinal obstruction. 2. Left renal cyst. A Labs Labs: Laboratory Results - last 24 hr 08/11/24 07:56 WBC 8.4 RBC 4.52 Hgb 13.2 Hct 39.6 MCV 87.6 MCH 29.2 MCHC 33.3 RDW 14.2 Plt Count 264 MPV 9.1 Immature Gran % (Auto) 1.6 H Neut % (Auto) 75.5 H Lymph % (Auto) 12.7 L [place] % (Auto) 9.1 H Eos % (Auto) 0.7 Baso % (Auto) 0.4 Lymph # (Auto) 1.06 [place] # (Auto) 0.8 H Eos # (Auto) 0.1 Baso # (Auto) 0.0 Abs Immat Gran (auto) 0.13 H Absolute Neuts (auto) 6.3 Absolute Nucleated RBC 0.000 Nucleated RBC % 0.0 Sodium 137 Potassium 3.4 Chloride 107 Carbon Dioxide 27 Anion Gap 3 L BUN 15 Creatinine 0.60 L Estim Creat Clear Calc 48 Estimated GFR > 60 Glucose 84 Calcium 7.7 L Total Bilirubin 0.8 AST 34 ALT 27 Alkaline Phosphatase 72 Total Protein 6.0 L Albumin 2.9 L
[2024-08-11] MEDS: cefTRIAXone 2 GM/NS 100 ML 2 GM/100 ML BAG IVPB (18:03)
[2024-08-11] MEDS: MELATONIN 5 MG TABLET PO (20:39)
[2024-08-11] MEDS: ACETAMINOPHEN 325 MG TABLET 650 MG PO (20:41)
[2024-08-12] VITALS (11 sets, daily range): BP systolic 131–137; BP diastolic 60–66; PULSE 79–116; RESP 16–18; TEMP 36.4–36.9; O2SAT 94–97
[2024-08-12] MEDS: HEPARIN SODIUM 5,000 UNITS/ML VIAL 5000 UNITS SUB-Q ×3 (06:13→20:46)
[2024-08-12] MEDS: LEVALBUTEROL NEB 1.25 MG/3 ML 0.63 MG INHALATION (07:43)
[2024-08-12 08:44] LABS: Basophils Percent Auto 0.3 % (0.2-1.2); Eosinophils Absolute Auto 0.1 K/mm3 (0-0.3); Eosinophils Percent Auto 1.6 % (0-4.4); Hematocrit 43.3 % (37.0-47.0); Hemoglobin 14.3 g/dL (12.0-15.0); Immature Granulocyte Absolute 0.27 K/mm3 (0.00-0.031); Immature Granulocyte Percent A 3.1 % (0-0.5); Lymphocytes Absolute Auto 2.01 K/mm3 (0.9-3.2); Lymphocytes Percent Auto 23.4 % (18.3-44.2); Mean Corpuscular Hemoglobin 29.5 pg (26-34); Mean Corpuscular Volume 89.5 fl (80-100); Mean Platelet Volume 9.3 fl (7.4-10.4); Monocytes Absolute Auto 0.6 K/mm3 (0.1-0.6); Monocytes Percent Auto 6.7 % (2.6-8.5); Neutrophils Absolute Auto 5.6 K/mm3 (1.3-6.7); Neutrophils Percent Auto 64.9 % (45.5-73.1); Platelet Count Result 277 k/mm3 (150-375); Red Blood Count 4.84 M/mm3 (4.2-5.4); Red Cell Distribution Width 14.5 % (11.5-14.5); White Blood Count 8.6 K/mm3 (4.5-10.0)
[2024-08-12 08:51] LABS: Alanine Aminotransferase 22 U/L (6-35); Albumin Level 3.1 g/dL (3.5-5.1); Alkaline Phosphatase 74 U/L (38-126); Anion Gap 4 mmol/L (4-12); Aspartate Amino Transferase 22 U/L (14-36); Bilirubin,Total 0.8 mg/dL (0.2-1.3); Blood Urea Nitrogen 11 mg/dL (7-17); Calcium 8.1 mg/dL (8.4-10.2); Carbon Dioxide 30 mmol/L (22-30); Chloride 106 mmol/L (98-107); Estimated CRCL calculation 42 ml/min; Estimated Glomerular Filt Rate > 60; Glucose 86 mg/dL (65-110); Potassium 3.5 mmol/L (3.4-5.0); Sodium 140 mmol/L (137-145)
--- NOTE | 2024-08-12 11:34 | PM.IMPN ---
Progress Note: A&P Assessment and Plan (1) Severe sepsis: Code(s): A41.9 - Sepsis, unspecified organism; R65.20 - Severe sepsis without septic shock Status: Acute (2) Multifocal pneumonia: Code(s): J18.9 - Pneumonia, unspecified organism Status: Acute (3) UTI (urinary tract infection): Qualifiers: Hematuria presence: without hematuria Urinary tract infection type: site unspecified Qualified Code(s): N39.0 - Urinary tract infection, site not specified Code(s): N39.0 - Urinary tract infection, site not specified Status: Acute (4) Atrial fibrillation with RVR: Code(s): I48.91 - Unspecified atrial fibrillation Status: Acute (5) Acute renal failure: Qualifiers: Acute renal failure type: unspecified Qualified Code(s): N17.9 - Acute kidney failure, unspecified Code(s): N17.9 - Acute kidney failure, unspecified Status: Acute (6) General weakness: Code(s): R53.1 - Weakness Status: Acute (7) New onset a-fib: Code(s): I48.91 - Unspecified atrial fibrillation Status: Acute Plan This is 84-year-old female presents to the ER with generalized weakness. She reported some cough over the past week. She has also been sleeping more than usual. Today her breathing seemed off and hence was prompted to bring her to the ER for evaluation. Patient also reported pain in her left chest. On arrival to the ED patient was tachycardic. Mild hypotension on arrival to the ED. Laboratory evaluation revealed WBC of 23 K creatinine 1.2 mild hyponatremia at 133 lactate was normal at 1.8. Troponin was negative CRP elevated at 32.3 BNP 1180. Urinalysis was positive for UTI. Influenza RSV and COVID swab was negative. EKG showed atrial flutter/tachycardia with rapid ventricular response with aberrant conduction or ventricular premature complexes. CT scan of the chest showed bilateral pneumonia. Patient was diagnosed with severe sepsis with meeting SIRS criteria. Patient was started on azithromycin and ceftriaxone. Blood culture obtained which came back positive for Gram-positive cocci in chains. Identified as Streptococcus pneumonia. Continue on cefepime IV daily. Switch to ceftriaxone which will be continued Urine culture with E coli susceptible to ceftriaxone COPD exacerbation possible remote history of smoking. Received methylprednisolone 125 mg in the ED. Currently on methylprednisone. Stopped methylprednisone AFib with RVR new diagnosis. On Cardizem p.r.n.. Cardiology consulted. Echocardiogram with EF 71% grade 1 diastolic dysfunction mild aortic valve stenosis. No pulmonary hypertension. She has spontaneously converted to sinus rhythm with frequent PACs. Likely related to underlying sepsis. No anticoagulation needed. DWIGHT mild related to sepsis follow-up labs ordered CT with no obstruction Delirium with intermittent agitation requiring Zyprexa. Currently has a sitter. Continue to monitor DVT prophylaxis on subQ heparin Code status do not resuscitate Disposition: PT OT to see for disposition. Okay to Transition to oral at discharge Subjective Date/time seen: 08/12/24 11:34 Interval history: No overnight events. Patient feeling better. More alert and oriented Review of Systems Review of Systems: All systems reviewed & are unremarkable except as noted in HPI and below Exam Narrative: GENERAL: Well-appearing in no acute distress. Well-nourished. - EYES: EOMI. Anicteric. - HENT: Moist mucous membranes. - LUNGS: Coarse breath sound bilateral, no respiratory distress - CARDIOVASCULAR: Irregular in rhythm. Rate controlled No murmur. No JVD. - ABDOMEN: Soft, non-tender and non-distended. No palpable masses. - EXTREMITIES: No edema. Peripheral pulses 2+. Non-tender. - NEUROLOGIC: No focal neurological deficits. CN II-XII grossly intact. General weakness - PSYCHIATRIC: Awake, Alert and oriented x 3. Appropriate mood and affect. - SKIN: No rashes or lesions. Warm. - LYMPH: No cervical lymphadenopathy. Objective Data Vital Signs Vital Signs: Vital Signs - 24 hr 08/11/24 11:40 08/11/24 12:00 08/11/24 13:10 Temperature Pulse Rate 115 H Respiratory Rate Blood Pressure Pulse Oximetry Oxygen Delivery Room Air Room Air Fraction of Inspired Oxygen 08/11/24 13:30 08/11/24 13:33 08/11/24 16:00 Temperature Pulse Rate 109 H 106 H 96 Respiratory Rate 18 18 Blood Pressure Pulse Oximetry Oxygen Delivery Fraction of Inspired Oxygen 08/11/24 17:00 08/11/24 18:17 08/11/24 18:24 Temperature 97.9 F Pulse Rate 109 H 114 H 104 H Respiratory Rate 22 H 18 18 Blood Pressure 139/85 Pulse Oximetry 97 Oxygen Delivery Fraction of Inspired Oxygen 08/11/24 22:00 08/11/24 22:37 08/12/24 00:00 Temperature 98.2 F Pulse Rate 106 H 104 H 86 Respiratory Rate 18 Blood Pressure 168/71 H Pulse Oximetry 99 Oxygen Delivery Fraction of Inspired Oxygen 08/12/24 04:00 08/12/24 06:00 08/12/24 07:44 Temperature 97.6 F Pulse Rate 79 85 Respiratory Rate 18 Blood Pressure 136/63 Pulse Oximetry 95 94 Oxygen Delivery Room Air Fraction of Inspired Oxygen 21 08/12/24 07:44 08/12/24 08:03 08/12/24 08:15 Temperature Pulse Rate 89 87 Respiratory Rate 16 16 Blood Pressure Pulse Oximetry 94 Oxygen Delivery Room Air Fraction of Inspired Oxygen 21 Intake/Output Intake/Output: Intake & Output 08/09/24 08/10/24 08/11/24 08/12/24 23:59 23:59 23:59 23:59 Intake Total 1910 1000 580 480 Output Total 600 Balance 1310 1000 580 480 Meds/Results Medications: Active Medications Generic Name Dose Route Start Last Admin Trade Name Freq PRN Reason Stop Dose Admin Acetaminophen 650 mg 08/10/24 13:08 08/11/24 20:41 Acetaminophen 325 Mg Tablet PO 650 mg Q6H PRN Administration Mild Pain (1-3) or Fever Albuterol/Ipratropium 3 ml 08/07/24 17:05 Ipratropium 0.5 Mg/Albuterol Sulfate 2.5 Mg Ampul.Neb 3 Ml INHALATION Q6HRT PRN Shortness Of Breath Or Wheezing Heparin Sodium (Porcine) 5,000 units 08/08/24 08:00 08/12/24 06:13 Heparin Sodium 5,000 Units/Ml Vial SUB-Q 5,000 units Q8HR KELLY Administration Ceftriaxone Sodium 2 gm in 100 mls @ 200 mls/hr 08/09/24 18:00 08/11/24 18:30 Rocephin 2 Gm/Ns 100 Ml IVPB Infused Q24H KELLY Infusion Levalbuterol HCl 0.63 mg 08/07/24 20:00 08/12/24 07:43 Levalbuterol Neb 1.25 Mg/3 Ml INHALATION 0.63 mg Q6HRT KELLY Administration Melatonin 5 mg 08/10/24 21:00 08/11/24 20:39 Melatonin 5 Mg Tablet PO 5 mg HS KELLY Administration Radiology Results: ITS Impressions Chest X-Ray 08/07/24 11:23 IMPRESSION: Bibasilar atelectasis versus pneumonia with left pleural effusion. Chest/Abdomen/Pelvis CT 08/07/24 13:39 IMPRESSION: CHEST: 1. Bilateral basal pneumonia with left minimal effusion. 2. No pulmonary embolism. ABDOMEN/PELVIS: 1. No evidence of appendicitis, diverticulitis or intestinal obstruction. 2. Left renal cyst. A Labs Labs: Laboratory Results - last 24 hr 08/12/24 08:30 WBC 8.6 RBC 4.84 Hgb 14.3 Hct 43.3 MCV 89.5 MCH 29.5 MCHC 33.0 RDW 14.5 Plt Count 277 MPV 9.3 Immature Gran % (Auto) 3.1 H Neut % (Auto) 64.9 Lymph % (Auto) 23.4 [place] % (Auto) 6.7 Eos % (Auto) 1.6 Baso % (Auto) 0.3 Lymph # (Auto) 2.01 [place] # (Auto) 0.6 Eos # (Auto) 0.1 Baso # (Auto) 0.0 Abs Immat Gran (auto) 0.27 H Absolute Neuts (auto) 5.6 Absolute Nucleated RBC 0.000 Nucleated RBC % 0.0 Sodium 140 Potassium 3.5 Chloride 106 Carbon Dioxide 30 Anion Gap 4 BUN 11 Creatinine 0.70 Estim Creat Clear Calc 42 Estimated GFR > 60 Glucose 86 Calcium 8.1 L Magnesium 2.0 Total Bilirubin 0.8 AST 22 ALT 22 Alkaline Phosphatase 74 Total Protein 7.0 Albumin 3.1 L
[2024-08-12] MEDS: levoFLOXacin 750 MG TABLET PO (15:49)
[2024-08-12] MEDS: ACETAMINOPHEN 325 MG TABLET 650 MG PO (15:51)
[2024-08-12] MEDS: MELATONIN 5 MG TABLET PO (20:45)
[2024-08-13] VITALS: PULSE 89
[2024-08-13 04:00] VITALS: PULSE 84
[2024-08-13 05:01] VITALS: BP 137/66; PULSE 92; RESP 18; TEMP 36.8; O2SAT 97
[2024-08-13] MEDS: HEPARIN SODIUM 5,000 UNITS/ML VIAL 5000 UNITS SUB-Q (06:03)
--- NOTE | 2024-08-13 11:23 | P.DS_ITS ---
DS: Admitting Diagnosis Discharge Date 08/13/2024 Admitting Diagnosis Generalized weakness DS: Discharge Diagnosis Discharge Diagnosis (1) Severe sepsis: Code(s): A41.9 - Sepsis, unspecified organism; R65.20 - Severe sepsis without septic shock Status: Acute (2) Multifocal pneumonia: Code(s): J18.9 - Pneumonia, unspecified organism Status: Acute (3) UTI (urinary tract infection): Qualifiers: Hematuria presence: without hematuria Urinary tract infection type: site unspecified Qualified Code(s): N39.0 - Urinary tract infection, site not specified Code(s): N39.0 - Urinary tract infection, site not specified Status: Acute (4) Atrial fibrillation with RVR: Code(s): I48.91 - Unspecified atrial fibrillation Status: Acute (5) Acute renal failure: Qualifiers: Acute renal failure type: unspecified Qualified Code(s): N17.9 - Acute kidney failure, unspecified Code(s): N17.9 - Acute kidney failure, unspecified Status: Acute (6) General weakness: Code(s): R53.1 - Weakness Status: Acute (7) New onset a-fib: Code(s): I48.91 - Unspecified atrial fibrillation Status: Acute DS: Summary Hospital Course Hospital Course: This is 84-year-old female presents to the ER with generalized weakness. She reported some cough over the past week. She has also been sleeping more than usual. Today her breathing seemed off and hence was prompted to bring her to the ER for evaluation. Patient also reported pain in her left chest. On arrival to the ED patient was tachycardic. Mild hypotension on arrival to the ED. Laboratory evaluation revealed WBC of 23 K creatinine 1.2 mild hyponatremia at 133 lactate was normal at 1.8. Troponin was negative CRP elevated at 32.3 BNP 1180. Urinalysis was positive for UTI. Influenza RSV and COVID swab was negative. EKG showed atrial flutter/tachycardia with rapid ventricular response with aberrant conduction or ventricular premature complexes. CT scan of the chest showed bilateral pneumonia. Patient was diagnosed with severe sepsis with meeting SIRS criteria. Patient was started on azithromycin and ceftriaxone. Blood culture obtained which came back positive for Gram-positive cocci in chains. Identified as Streptococcus pneumonia. Continue on cefepime IV daily. Switch to ceftriaxone which will be continued Urine culture with E coli susceptible to ceftriaxone. Taper slow course COPD exacerbation possible remote history of smoking. Received methylprednisolone 125 mg in the ED. Currently on methylprednisone. Stopped methylprednisone AFib with RVR new diagnosis. On Cardizem p.r.n.. Cardiology consulted. Echocardiogram with EF 71% grade 1 diastolic dysfunction mild aortic valve stenosis. No pulmonary hypertension. She has spontaneously converted to sinus rhythm with frequent PACs. Likely related to underlying sepsis. No anticoagulation needed as it was transient. DWIGHT mild related to sepsis follow-up labs ordered CT with no obstruction Delirium with intermittent agitation requiring Zyprexa. Needed sitter in the beginning Continue to monitor. This is resolved DVT prophylaxis on subQ heparin Code status do not resuscitate Disposition: PT OT to see for disposition. Home health will be arranged at discharge. Time Spent with Patient Time attestation: Total time spent providing and/or coordinating discharge services:40 mins Exam Narrative: GENERAL: Well-appearing in no acute distress. Well-nourished. - EYES: EOMI. Anicteric. - HENT: Moist mucous membranes. - LUNGS: Coarse breath sound bilateral, no respiratory distress - CARDIOVASCULAR: Irregular in rhythm. Rate controlled No murmur. No JVD. - ABDOMEN: Soft, non-tender and non-dist ended. No palpable masses. - EXTREMITIES: No edema. Peripheral puls es 2+. Non-tender. - NEUROLOGIC: No focal neurological defi cits. CN II-XII grossly intact. General weakness - PSYCHIATRIC: Awake, Alert and oriented x 3. Appropriate mood and affect. - SKIN: No rashes or lesions. Warm. - LYMPH: No cervical lymphadenopathy. DS: Data Imaging Radiologist's impression: ITS Impressions Chest X-Ray 08/07/24 11:23 IMPRESSION: Bibasilar atelectasis versus pneumonia with left pleural effusion. Chest/Abdomen/Pelvis CT 08/07/24 13:39 IMPRESSION: CHEST: 1. Bilateral basal pneumonia with left minimal effusion. 2. No pulmonary embolism. ABDOMEN/PELVIS: 1. No evidence of appendicitis, diverticulitis or intestinal obstruction. 2. Left renal cyst. A Discharge Plan Discharge Attending physician on discharge: Armando Tidwell Consulting providers: Parrish Wan Discharging Clinician: Armando Tidwell Anticipated Discharge Date/Time: 08/13/24 11:25 Patient Disposition: Home Health Service Activity: as tolerated Diet: heart healthy Patient Instructions: Antibiotic Form Patient Language: Venezuelan Stand Alone Forms: General Discharge Information Follow-up/Referrals: Raquel Carney APN-C [Advanced Practice Nurse] - Call for Appointment UNKNOWN,DOCTOR [Primary Care Provider] - 1 Week (PCP) Discharge Medications: New levofloxacin 750 mg tablet 750 mg PO DAILY Qty: 3 0RF No Action No Home Medications Date of admission: 08/07/24 15:28 Primary Care Provider: UNKNOWN,DOCTOR Admitting Provider: Urszula Ewing Attending physician on admission: Urszula Ewing Condition: Improved
== END 2024-08-13 12:35 | disposition home or self-care (01) | DRG 871 ==
LOC: ANHED 11:06 → ANHIMU 16:36 → ANH2MED 08-13 11:25 → ANHIMU 08-14 15:04
PROVIDERS: Admitting Provider Hospitalist; Emergency Provider Physician Assistant; Visit Provider Internal Medicine
DX: A40.3 Sepsis due to Streptococcus pneumoniae (principal); J18.9 Pneumonia, unspecified organism; R65.20 Severe sepsis without septic shock; N39.0 Urinary tract infection, site not specified; N17.9 Acute kidney failure, unspecified; J44.0 Chronic obstructive pulmonary disease with (acute) lower respiratory infection; J44.1 Chronic obstructive pulmonary disease with (acute) exacerbation; E87.1 Hypo-osmolality and hyponatremia; B96.20 Unspecified Escherichia coli [E. coli] as the cause of diseases classified elsewhere; I48.91 Unspecified atrial fibrillation; R31.29 Other microscopic hematuria; R41.0 Disorientation, unspecified; Z87.891 Personal history of nicotine dependence; Z85.43 Personal history of malignant neoplasm of ovary
CPT/HCPCS: 36415; 71046; 71260; 74177; 80053; 81001; 83605; 83735; 83880; 84132; 84484; 85025; 85610; 85730; 86140; 87040; 87086; 87181; 87186; 87637; 93005; 93306; 94640; 96365; 96367; 96375; 96376; 97110; 97161; 97165; 97530; 97535; 99285; A9270; J0456; J0692; J0696; J1644; J2359; J2919; J7030; Q9967

== ENCOUNTER 2024-12-13 08:58 | Emergency (ER) | payer MEDICARE, MEDICAID, SELFPAY ==
--- NOTE | ~2024-12-13 | XR_ITS ---
CHEST RADIOGRAPH CLINICAL HISTORY: AMS, evaluate for PNA . COMPARISON: 09/29/2024 and dating back to 08/07/2024 TECHNIQUE: Single portable view of the chest. FINDINGS The cardiomediastinal silhouette is unremarkable. Blunting of the left costophrenic sulcus suggesting a small left-sided pleural effusion. The remainder the lungs are clear. IMPRESSION: Small left-sided pleural effusion without focal infiltrate. Reviewed, dictated and finalized at location A.
--- NOTE | ~2024-12-13 | CT_ITS ---
CT head without contrast Indication: Altered mental status Technique: Serial scans were obtained through the brain without the administration of contrast. Dose reduction technique was used on this scan by utilizing automated exposure control and iterative recon struction technique. The dose-length product (DLP) was 605.33 mGy-cm. Findings: There is no evidence of intracranial hemorrhage, mass lesion, or acute infarct. The ventri cles and subarachnoid spaces are dilated, consistent with moderate atrophy. Low attenuation regions are seen within the periventricular white matter bilaterally, likely representing changes from chroni c microvascular ischemic disease. There is no evidence of edema, mass effect or midline shift. The visualized paranasal sinuses and mastoid air cells are clear. Impression: No intracranial hemorrhage, mass, or acute infarct. Atrophy and chronic white matter changes, as above. Reviewed, dictated and finalized at location . Impression: No intracranial hemorrhage, mass, or acute infarct. Atrophy and chronic white matter changes, as above.
[2024-12-13 09:04] VITALS: BP 154/80; PULSE 99; RESP 20; TEMP 36.4; O2SAT 95
--- OUTSIDE RECORDS SUMMARY | 2024-12-13 09:04 | XMS_ITS | Encounter Summary ---
Author Organization [facility] Address [address] [place] [address] Care Team Providers Care Retail Stock Clerk Name Role Phone Gt Cosme MD Unavailable Jaime Alex Unavailable [phone] Evelyn Balderrama NP Primary Care Provider Reason for Visit * Reason Onset Date Comments Symptom Based Call 12/12/2024 Encounter Details Date Type Department Care Team (Late st Contact Info) Description 12/12/2024 Telephone [facility] Primary Care at [address] [phone] Evelyn Balderrama, MOL[employer] STEAMER OPERATOR [address] [place] [address] Symptom Based Call Social History Tobacco Use Types Packs/Day Years Used Date Smoking Tobacco: Former Cigarettes 0.5 60 1 954 - 2014 Smokeless Tobacco: Never Alcohol Use Standard Drinks/Week Comments No 0 (1 standard drink = 0.6 oz pur e alcohol) AUDIT-C Answer Date Recorded Q1: How often do you have a drink containing alcohol? Never 10/01/2024 Q2: How many drinks containi ng alcohol do you have on a typical day when you are drinking? Patient does not drink Q3: How often do you have si x or more drinks on one occasion? Never 10/01/2024 PHQ-2 Answer Date Recorded PHQ-2 Total Score (If total score is 3 or more points, staff should administer the PHQ-9) 0 10/01/2024 Comments No Sex and Gender Information Value Date Recorded Sex Assigned at Not on file Legal Sex Female 7:57 AM SLAT TWISTER Gender Identity Not on file Sexual Orientation Not on file Occupation Industry Job Start Date Job End Date retired Not on file Not on file Not on file documented as of this encounter Miscellaneous Notes * Telephone Encounter - Stephani Elliott MA - 12/12/2024 2:42 PM CDT Spoke with pt's daughter 12/12.Daughter is aware that pt will need to be evaluated. Daughter stated she would take her for care today. * Telephone Encounter - Karnya Araujo MA - 12/12/2024 12:45 PM CDT Symptom Based Call Chief Complaint(s): Duration: More confused than normal, more irritable What type of symptom(s) is the patient experiencing? 911 Has the patient agreed to call 911? Daughter agree to take her to the hospital .No Additional Comments: Believes it could be a UTI Does message need to be routed? Yes-FYI Only documented in this encounter Plan of Treatment Not on file documented as of this encounter Visit Diagnoses Not on filedocumented in this encounter Care Teams Retail Stock Clerk Relationship Specialty Start Date End Date Evelyn Balderrama NP [address] [facility] [address] [place] [phone] PCP - General Family Medicine 10/01/24 Gt Cosme MD [address] [place] [address] Consulting Physician Gynecologic Oncology 04/17/23 Jaime Alex PA [address] [facility] [address] [address] Physician Horse Race Starter Orthopedic Surgery 04/17/23 documented as of this encounter
--- OUTSIDE RECORDS SUMMARY | 2024-12-13 09:04 | XMS_ITS | Clinical Summary ---
Author Organization [facility] Address [address] [place] [address] Care Team Providers Care Hot Worker Name Role Phone Gt Cosme MD Unavailable [phone] Jaime Alex Unavailable Evelyn Balderrama NP Primary Care Provider Allergies Active Allergy Reactions Criticality Noted Date Comments Latex Itching Low 03/10/2016 Medications calcium carbonate-vitamin D3 400-133.3 mg-unit tablet Activ e ascorbic acid (VITAMIN C) 500 mg tablet,chewable Acti ve cholecalciferol (VITAMIN D-3) 2,000 unit tablet Ac tive Active Problems Problem Noted Date Diagnosed Date Body mass index (BMI) of 22.0 to 22.9 in adult 0 10/01/2024 Assessment & Plan (10/01/2024 9:08 AM SAFETY DEPOSIT SUPERVISOR): Wt Readings from Last 3 Encounters: 10/01/24 56.4 kg (124 lb 4.8 oz) 09/26/24 56.2 kg (123 lb 12.8 oz) 09/16/24 57.3 kg (126 lb 6.4 oz) Body mass index is 22.02 kg/m . -Stable, at goal of <30 bmi -Discussed recommendations for exercise at least 30 minutes moderate to vigorous exercise as tolerated most days of the week. (minimum 150 minutes weekly) -Discussed importance of well-balanced diet Sleep disturbance 09/26/2024 Assessment & Plan (10/01/2024 12:30 PM SAFETY DEPOSIT SUPERVISOR): -New complaint -Likely associated with moderate late onset dementia -Recommendations for OTC melatonin nightly -Continue current treatment plan Frailty 08/16/2024 Assessment & Plan (08/17/2024 1:20 PM SAFETY DEPOSIT SUPERVISOR): Encouraged patient ask for help when needed, be careful around the house when ambulating. Use cane in the home if needed for stability. 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, psychotic disturbance, mood disturbance, or anxiety 08/16/2024 Assessment & Plan (10/01/2024 12:29 PM SAFETY DEPOSIT SUPERVISOR): -Recent diagnosis -Patient was recently diagnosed with moderate late onset dementia via slums screening at recent visit -Patient currently does not take medication for this -Currently lives with son and has been experiencing sleep disturbance -Recommendation for OTC melatonin nightly -Referral to neurology placed for expert evaluation -Continue current treatment plan Assessment & Plan (08/17/2024 1:21 PM SAFETY DEPOSIT SUPERVISOR): Patient's scored poorly on a slums exam. Strongly encouraged patient to ask for help when needed at home. She currently lives with her son. Fatigue 08/16/2024 Assessment & Plan (08/17/2024 1:21 PM SAFETY DEPOSIT SUPERVISOR): Home physical therapy ordered for further evaluation and treatment. Gait abnormality 08/16/2024 Assessment & Plan (10/01/2024 12:35 PM SAFETY DEPOSIT SUPERVISOR): -Recent diagnosis not significantly improved -Patient recently was diagnosed with pneumonia, flu a, UTI which has left the patient physically deconditioned -Currently utilizing wheelchair for long distances -Referral for home health with PT/OT and wound care ordered -Continue current treatment plan Assessment & Plan (08/17/2024 1:22 PM SAFETY DEPOSIT SUPERVISOR): Home PT ordered further evaluation and treatment. Pneumonia due to infectious organism 08/16/2024 Assessment & Plan (08/17/2024 1:22 PM SAFETY DEPOSIT SUPERVISOR): Clinically improved, chest x-ray ordered, will follow. History of ovarian cancer 04/10/2019 Assessment & Plan (10/01/2024 12:28 PM SAFETY DEPOSIT SUPERVISOR): -In remission -Follows for annual surveillance with specialists -Continue current treatment plan Chronic obstructive pulmonary disease 04/04/2018 Assessment & Plan (11/19/2019 1:40 PM CDT): Patient has mild COPD. She was advised to quit smoking. Continue with p.r.n. albuterol inhaler. Cigarette nicotine dependence in remission 02/26 Assessment & Plan (10/01/2024 9:08 AM SAFETY DEPOSIT SUPERVISOR): Tobacco Use: Medium Risk (10/01/2024) Patient History Smoking Tobacco Use: Former Smokeless Tobacco Use: Never Passive Exposure: Not on file -stable, at goal -patient reports smoking cessation -patient educated on benefits of continued smoking cessation -total time spent on tobacco cessation education 3 minutes Assessment & Plan (11/19/2019 1:40 PM CDT): Patient was advised to quit smoking. Age-related osteoporosis wit hout current pathological fracture 05/24/2017 Assessment & Plan (10/01/2024 9:10 AM SAFETY DEPOSIT SUPERVISOR): -chronic, controlled -last DEXA bone scan was in 2022; will repeat dexa bone scan -currently takes prolia infections -managed by orthopedics -encourage patient to continue weight-bearing exercises and vitamin-D/calcium supplement -continue current treatment plan Assessment & Plan (08/17/2024 1:20 PM SAFETY DEPOSIT SUPERVISOR): Patient currently is followed by another provider for her osteoporosis. Vitamin- D ordered. 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 05/02/2013 08/16/2024 Encounters Date Type Department Care Team Description 12/12/2024 Telephone [facility] Primary Care at [address] [phone] Evelyn Balderrama NP Symptom Based Call 10/18/2024 Telephone [facility] Medical [facility] Primary Care at [address] [phone] Evelyn Balderrama NP Medical Question/Miscellaneous 10/02/2024 Telephone [facility] Primary Care at [address] [phone] Evelyn Balderrama, AMRITA Additional Services Or Orders 10/01/2024 8:30 AM SAFETY DEPOSIT SUPERVISOR Office Visit [facility] Primary Care at [address] [phone] Evelyn Balderrama NP Establishing care with new doctor, encounter for (Primary Dx); 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 behavioral disturbance, psychotic disturbance, mood disturbance, or anxiety (HCC); Age-related osteoporosis without current pathological fracture; History of ovarian cancer; Sleep disturbance; Gait abnormality; Cigarette nicotine dependence in remission; Body mass index (BMI) of 22.0 to 22.9 in adult 10/01/2024 Orders Only [facility] Medical [facility] Primary Care at [address] [phone] Evelyn Balderrama NP Osteoporosis screening (Primary Dx); Postmenopausal 10/01/2024 Orders Only [facility] Care at [place] [address] [phone] Evelyn Balderrama, AMRITA Alzheimer's dementia, unspecified dementia severity, unspecified timing of dementia onset, unspecified whether behavioral, psychotic, or mood disturbance or anxiety (HCC) (Primary Dx); Physical deconditioning 09/26/2024 3:30 PM SAFETY DEPOSIT SUPERVISOR Office Visit [facility] Medicine at [facility] [address] [place] [phone] Taina Bunch, Pneumonia of both lungs due to infectious organism, unspecified part of lung (Primary Dx); Influenza A; Poor appetite; Sleep disturbance; Pressure injury of skin of sacral region, unspecified injury stage; 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 behavioral disturbance, psychotic disturbance, mood disturbance, or anxiety (HCC); Age-related osteoporosis without current pathological fracture 09/26/2024 Telephone [facility] Medicine at [facility] [address] [place] [phone] Taina Bunch DO Medical Question/Miscellaneous 09/26/2024 Telephone [facility] at [facility] [address] [place] [phone] Taina Bunch DO Additional Services Or Orders 09/16/2024 10:45 AM SAFETY DEPOSIT SUPERVISOR Office Visit [facility] Care at [address] [phone] Silas Sharma NP Exposure to the flu (Primary Dx); Pneumonia of both lungs due to infectious organism, unspecified part of lung 09/16/2024 Nurse Triage [facility] at [facility] [address] [place] [phone] Love Clifton RN from Last 3 Months Immunizations Immunization Administration Dates Next Due DTaP 07/08/2014 Influenza, Unspecified 05/28/2024(Deferr ed: Patient Refused),05/28/2023(Deferred: Patient Refused),05/16/2013 Tdap 07/08/2014 Surgical History Surgery Date Site/Laterality Comments PORT PLACEMENT CHEST >5 YEARS 06/24/2013 N/A HYSTERECTOMY JOINT REPLACEMENT Right total hip HIP SURGERY Left femur fracture Medical History Medical History Date Comments Peripheral neuropathy Cancer (HCC) ovarian Ovarian cancer (HCC) Postmenopausal osteoporosis Pneumonia Family History Medical History Relation Name Comments No Known Problems Father No Known Problems Mother Relation Name Status Comments Father Mother Social History Tobacco Use Types Packs/Day Years Used Date Smoking Tobacco: Former Cigarettes 0.5 60 1 954 - 2014 Smokeless Tobacco: Never Tobacco Cessation:Counseling Given: Not Answered Alcohol Use Standard Drinks/Week Comments No 0 [...] on file Legal Sex Female 7:57 AM SAFETY DEPOSIT SUPERVISOR Gender Identity Not on file Sexual Orientation Not on file Occupation Industry Job Start Date Job End Date retired Not on file Not on file Not on file Obstetrics History Para Term AB IAB SAB Ectopic Multiple Livin g Live Births 3 3 3 3 Date Outcome GA Total Labor Labor/2nd/3rd Weight Sex Type Anes PTL Yesi A1 A5 Name Clin Term Term Term Last Filed Vital Signs Vital Sign Reading Time Taken Comments Blood Pressure 147/86 10/01/2024 8:30 AM SAFETY DEPOSIT SUPERVISOR Pulse 74 10/01/2024 8:30 AM SAFETY DEPOSIT SUPERVISOR Temperature 36.6 C (97.8 F) 09/26/2024 3:35 PM SAFETY DEPOSIT SUPERVISOR Respiratory Rate 16 10/01/2024 8:30 AM SAFETY DEPOSIT SUPERVISOR Oxygen Saturation 97% 10/01/2024 8:30 AM SAFETY DEPOSIT SUPERVISOR Inhaled Oxygen Concentration - - Weight 56.4 kg (124 lb 4.8 oz) 10/01/2024 8:30 A M SAFETY DEPOSIT SUPERVISOR Height 160 cm (5' 2.99 ) 10/01/2024 8:30 AM SAFETY DEPOSIT SUPERVISOR Body Mass Index 22.02 10/01/2024 8:30 AM SAFETY DEPOSIT SUPERVISOR Plan of Treatment Health Maintenance Due Date Last Done Comments Hepatitis B Screening 1958 Pneumococcal vaccine 65+ (1 of 2 - PCV) 1959 Well Visit 65+ 2004 Osteoporosis Screening-Bone Density Scan 09/12/2024 09/12/2022, 05/31/2017, 05/26/2016, Additional history exists Influenza Vaccine (Season Ended) 2025 05/16/2013 Covid-19 Vaccine ( season) 2025 08/14/2021, 10/22/2020, 09/30/2020 Postponed from 04/28/2024 (Patient declined, but will receive in the future) Depression Screening 10/01/2025 10/01/2024, 08/16/20 24 Fall Risk Assessment 10/01/2025 10/01/2024, 09/26/19 25 DTaP/Tdap/Td Vaccine Discontinued 07/08/2014, 07/08/20 14 Zoster Vaccine Discontinued Procedures Procedure Name Priority Date/Time Associated Diagnosis Comments POC INFLUENZA A/B, COVID-19 ANTIGEN Routine 09/16/2024 11:11 AM SAFETY DEPOSIT SUPERVISOR Exposure to the flu DEXA AXIAL SKELETON BONE DENSITY 1 OR MORE SITES Schedule Routine, Read Routine (OP Routine) 09/12/2022 12:45 PM SAFETY DEPOSIT SUPERVISOR Post-menopausal osteoporosis from Last 3 Months or Most Recently Relevant to Health Maintenance Results * (ABNORMAL) POC Influenza A/B, COVID-19 antigen (09/16/2024 11:11 AM SAFETY DEPOSIT SUPERVISOR) Influenza A Ag, POC Positive(A) Negative [facility] Influenza B Ag, POC Negative Negative [facility] COVID-19 Ag POC Presumptive Negative Presumptive Negative, Invalid [facility] Nasal 09/16/2024 11:1 1 AM SAFETY DEPOSIT SUPERVISOR Silas Sharma NP POINT OF CARE TEST ORDERABLES F inal Result [facility] [address] [place] [address], [facility] * Dexa Axial Skeleton Bone Density 1 or 2 Site (09/12/2022 12:45 PM SAFETY DEPOSIT SUPERVISOR) Anatomical Region Laterality Modality Body N/A Mammography 09/13/2022 6:24 AM SAFETY DEPOSIT SUPERVISOR Narrative 09/13/2022 6:25 AM SAFETY DEPOSIT SUPERVISOR EXAM DESCRIPTION: DEXA AXIAL SKELETON BONE DENSITY 1 OR MORE SITES REASON FOR STUDY: 82 y/o year old F with given history of screening. Postmenopausal Side Laster Staple/Model: Dr. TATTOFF A (S/N [id number]) CLINICAL INFORMATION: Current height: 62.5 inches Maximum height: 66 inches Weight: 130 pounds Risk factors: Adult fracture, parental hip fracture, smoking history, cancer, postmenopausal COMPARISON: 05/31/2017, 05/26/2016, 05/12/2015. FINDINGS: AP LUMBAR SPINE L1-L4: Total BMD is 0.957 g/cm2 T-score is -0.8 Dissimilar scan types or analysis methods precludes assessment for calculating a significant change. LEFT forearm: 33% radius BMD is 0.572 g/cm2 T-score is -2.0 Dissimilar scan types or analysis methods precludes assessment for calculating a significant change. FRAX: FRAX tool cannot be utilized as T-Score for mandatory regions required to calculate FRAX is unavailable. IMPRESSION: Based on the left forearm bone mineral density (T-score -2.0 ) the patient has low bone mass . REFERENCE: Bone mineral density: Normal (T-score above or = -1.0) Low bone mass (T-score between -1.0 and -2.5) replaces the previously used term osteopenia Osteoporosis (T-score = or below -2.5) Medical evaluation for secondary causes of low bone mineral density may be appropriate. FRAX is a World Health Organization validated fracture risk assessment tool that calculates a person's 10 year probability of a major osteoporosis related fracture and hip fracture. According to the National Osteoporosis Foundation guidelines, postmenopausal women and men age 50 or older with low bone mass and a 10 year probability of a major osteoporosis related fracture = or greater than 20% or a 10 year probability of a hip fracture = or greater than 3% should be considered for treatment. For further information, including treatment recommendations, please refer to the 2013 ISCD Official Positions (http://www.iscd.org) and the NOF's Clinician's Guide to Prevention and Treatment of Osteoporosis (http://www.nof.org/professionals/clinical-guidelines) THIS IS AN ELECTRONICALLY VERIFIED FINAL REPORT 09/13/2022 6:25 AM - Electronically signed by Jaime Davison M.D. MF: [id number] Report ID: [id number] Reading Location: [id number] Procedure Note Jaime Davison MD - 09/13/2022 EXAM DESCRIPTION: DEXA AXIAL SKELETON BONE DENSITY 1 OR MORE SITES REASON FOR STUDY: 82 y/o year old F with given history ofscreening. Postmenopausal Side Laster Staple/Model: Dr. TATTOFF A (S/N [id number]) CLINICAL INFORMATION: Current height: 62.5 inches Maximum height: 66 inches Weight: 130 pounds Risk factors: Adult fracture, parental hip fracture, smoking history,cancer, postmenopausal COMPARISON: 05/31/2017, 05/26/2016, 05/12/2015. FINDINGS: AP LUMBAR SPINE L1-L4: Total BMD is 0.957 g/cm2 T-score is -0.8 Dissimilar scan types or analysis methods precludes assessment for calculating a significant change. LEFT forearm: 33% radius BMD is 0.572 g/cm2 T-score is -2.0 Dissimilar scan types or analysis methods precludes assessment for calculating a significant change. FRAX: FRAX tool cannot be utilized as T-Score for mandatory regions required to calculate FRAX is unavailable. IMPRESSION: Based on the left forearm bone mineral density (T-score-2.0 ) the patient has low bone mass . REFERENCE: Bone mineral density: Normal (T-score above or = -1.0) Low bone mass (T-score between -1.0 and -2.5) replaces thepreviously used term osteopenia Osteoporosis (T-score = or below -2.5) Medical evaluation for secondary causes of low bone mineral density may be appropriate. FRAX is a World Health Organization validated fracture risk assessmenttool that calculates a person's 10 year probability of a major osteoporosisrelated fracture and hip fracture. According to the National OsteoporosisFoundation guidelines, postmenopausal women and men age 50 or older with low bonemass and a 10 year probability of a major osteoporosis related fracture = or greater than 20% or a 10 year probability of a hip fracture = or greaterthan 3% should be considered for treatment. For further information, including treatment recommendations, please referto the 2013 ISCD Official Positions (http://www.iscd.org) and the NOF's Clinician's Guide to Prevention and Treatment of Osteoporosis (http://www.nof.org/professionals/clinical-guidelines) THIS IS AN ELECTRONICALLY VERIFIED FINAL REPORT 09/13/2022 6:25 AM - Electronically signed by Jaime Davison M.D. MF: [id number] Report ID: [id number] Reading Location: [place] [address] Jaime CHA IMG DXA PROCEDURES Final Result from Last 3 Months or Most Recently Relevant to Health Maintenance Insurance MEDICARE [facility] Address: [facility] [address] [place] [address] IDIN MEDICARE IDPA MEDICARE IDPA Care Teams Hot Worker Relationship Specialty Start Date End Date Evelyn Balderrama NP [address] [facility] [address] [place] [id number] PCP - General Family Medicine 10/01/24 Gt Cosme MD [address] [place] [address] Consulting Physician Gynecologic Oncology 04/17/23 Jaime Alex PA [address] [facility] [address] [place] [phone] Physician Account Auditor Orthopedic Surgery 04/17/23
--- OUTSIDE RECORDS SUMMARY | 2024-12-13 09:04 | XMS_ITS | Referral Summary ---
Author Organization [facility] Address [address] [place] [address] Care Team Providers Care Sheet Metal Duct Worker Supervisor Name Role Phone Gt Cosme MD Unavailable [phone] Jaime Alex Unavailable [phone] Evelyn Balderrama NP Primary Care Provider Encounters Date Type Department Care Team Description 12/12/2024 Telephone [facility] Primary Care at [address] [place] [phone] Evelyn Balderrama NP Symptom Based Call 10/18/2024 Telephone [facility] Primary Care at [address] [place] [phone] Evelyn Balderrama NP Medical Question/Miscellaneous 10/02/2024 Telephone [facility] Primary Care at [address] [place] [phone] Evelyn Balderrama NP Additional Services Or Orders 10/01/2024 Orders Only [facility] Primary Care at [address] [phone] Evelyn Balderrama NP Osteoporosis screening (Primary Dx); Postmenopausal 10/01/2024 Orders Only [facility] Primary Care at [address] [phone] Evelyn Balderrama NP Alzheimer's dementia, unspecified dementia severity, unspecified timing of dementia onset, unspecified whether behavioral, psychotic, or mood disturbance or anxiety (HCC) (Primary Dx); Physical deconditioning 10/01/2024 8:30 AM NIGHT TIME NANNY Office Visit [facility] Primary Care at [address] [phone] Evelyn Balderrama NP Establishing care with new doctor, encounter for (Primary Dx); 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 behavioral disturbance, psychotic disturbance, mood disturbance, or anxiety (HCC); Age-related osteoporosis without current pathological fracture; History of ovarian cancer; Sleep disturbance; Gait abnormality; Cigarette nicotine dependence in remission; Body mass index (BMI) of 22.0 to 22.9 in adult 09/26/2024 Telephone [facility] [address] [place] [phone] Taina Bunch, DO Medical Question/Miscellaneous 09/26/2024 Telephone [facility] [address] [place] [phone] Taina Bucnh, DO Additional Services Or Orders 09/26/2024 3:30 PM NIGHT TIME NANNY Office Visit [facility] [address] [place] [phone] Taina Bunch, Pneumonia of both lungs due to infectious organism, unspecified part of lung (Primary Dx); Influenza A; Poor appetite; Sleep disturbance; Pressure injury of skin of sacral region, unspecified injury stage; 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 behavioral disturbance, psychotic disturbance, mood disturbance, or anxiety (HCC); Age-related osteoporosis without current pathological fracture 09/16/2024 Nurse Triage [facility] [address] [place] [phone] Love Clifton RN 09/16/2024 10:45 AM NIGHT TIME NANNY Office Visit [facility] Convenient Care at [address] [phone] Silas Sharma NP Exposure to the flu (Primary Dx); Pneumonia of both lungs due to infectious organism, unspecified part of lung from Last 3 Months Allergies Active Allergy Reactions Criticality Noted Date Comments Latex Itching Low 03/10/2016 Medications calcium carbonate-vitamin D3 400-133.3 mg-unit tablet Activ e ascorbic acid (VITAMIN C) 500 mg tablet,chewable Acti ve cholecalciferol (VITAMIN D-3) 2,000 unit tablet Ac tive Active Problems Problem Noted Date Diagnosed Date Body mass index (BMI) of 22.0 to 22.9 in adult 0 10/01/2024 Assessment & Plan (10/01/2024 9:08 AM NIGHT TIME NANNY): Wt Readings from Last 3 Encounters: 10/01/24 [...] 09/26/2024 Assessment & Plan (10/01/2024 12:30 PM NIGHT TIME NANNY): -New complaint -Likely associated with moderate late onset dementia -Recommendations for OTC melatonin nightly -Continue current treatment plan Frailty 08/16/2024 Assessment & Plan (08/17/2024 1:20 PM NIGHT TIME NANNY): Encouraged patient ask for help when needed, be careful around the house when ambulating. Use cane in the home if needed for stability. 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, psychotic disturbance, mood disturbance, or anxiety 08/16/2024 Assessment & Plan (10/01/2024 12:29 PM NIGHT TIME NANNY): -Recent diagnosis -Patient was recently diagnosed with moderate late onset dementia via slums screening at recent visit -Patient currently does not take medication for this -Currently lives with son and has been experiencing sleep disturbance -Recommendation for OTC melatonin nightly -Referral to neurology placed for expert evaluation -Continue current treatment plan Assessment & Plan (08/17/2024 1:21 PM NIGHT TIME NANNY): Patient's scored poorly on a slums exam. Strongly encouraged patient to ask for help when needed at home. She currently lives with her son. Fatigue 08/16/2024 Assessment & Plan (08/17/2024 1:21 PM NIGHT TIME NANNY): Home physical therapy ordered for further evaluation and treatment. Gait abnormality 08/16/2024 Assessment & Plan (10/01/2024 12:35 PM NIGHT TIME NANNY): -Recent diagnosis not significantly improved -Patient recently was diagnosed with pneumonia, flu a, UTI which has left the patient physically deconditioned -Currently utilizing wheelchair for long distances -Referral for home health with PT/OT and wound care ordered -Continue current treatment plan Assessment & Plan (08/17/2024 1:22 PM NIGHT TIME NANNY): Home PT ordered further evaluation and treatment. Pneumonia due to infectious organism 08/16/2024 Assessment & Plan (08/17/2024 1:22 PM NIGHT TIME NANNY): Clinically improved, chest x-ray ordered, will follow. History of ovarian cancer 04/10/2019 Assessment & Plan (10/01/2024 12:28 PM NIGHT TIME NANNY): -In remission -Follows for annual surveillance with specialists -Continue current treatment plan Chronic obstructive pulmonary disease 04/04/2018 Assessment & Plan (11/19/2019 1:40 PM CDT): Patient has mild COPD. She was advised to quit smoking. Continue with p.r.n. albuterol inhaler. Cigarette nicotine dependence in remission 02/26 Assessment & Plan (10/01/2024 9:08 AM NIGHT TIME NANNY): Tobacco Use: Medium Risk (10/01/2024) Patient History [...] 05/24/2017 Assessment & Plan (10/01/2024 9:10 AM NIGHT TIME NANNY): -chronic, controlled -last DEXA bone scan was in 2022; will repeat dexa bone scan -currently takes prolia infections -managed by orthopedics -encourage patient to continue weight-bearing exercises and vitamin-D/calcium supplement -continue current treatment plan Assessment & Plan (08/17/2024 1:20 PM NIGHT TIME NANNY): Patient currently is followed by another provider [...] 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 05/02/2013 08/16/2024 Immunizations Immunization Administration Dates Next Due DTaP 07/08/2014 Influenza, Unspecified 05/28/2024(Deferr ed: Patient Refused),05/28/2023(Deferred: Patient Refused),05/16/2013 Tdap 07/08/2014 Social History Tobacco Use Types Packs/Day Years [...] on file Legal Sex Female 7:57 AM NIGHT TIME NANNY Gender Identity Not on file Sexual Orientation Not on file Occupation Industry Job Start Date Job End Date retired Not on file Not on file Not on file Last Filed Vital Signs Vital Sign Reading Time Taken Comments Blood Pressure 147/86 10/01/2024 8:30 AM NIGHT TIME NANNY Pulse 74 10/01/2024 8:30 AM NIGHT TIME NANNY Temperature 36.6 C (97.8 F) 09/26/2024 3:35 PM NIGHT TIME NANNY Respiratory Rate 16 10/01/2024 8:30 AM NIGHT TIME NANNY Oxygen Saturation 97% 10/01/2024 8:30 AM NIGHT TIME NANNY Inhaled Oxygen Concentration - - Weight 56.4 kg (124 lb 4.8 oz) 10/01/2024 8:30 A M NIGHT TIME NANNY Height 160 cm (5' 2.99 ) 10/01/2024 8:30 AM NIGHT TIME NANNY Body Mass Index 22.02 10/01/2024 8:30 AM NIGHT TIME NANNY Plan of Treatment Not on file Procedures Procedure Name Priority Date/Time Associated Diagnosis Comments POC INFLUENZA A/B, COVID-19 ANTIGEN Routine 09/16/2024 11:11 AM NIGHT TIME NANNY Exposure to the flu DEXA AXIAL SKELETON BONE DENSITY 1 OR MORE SITES Schedule Routine, Read Routine (OP Routine) 09/12/2022 12:45 PM NIGHT TIME NANNY Post-menopausal osteoporosis from Last 3 Months or Most Recently Relevant to Health Maintenance Results * (ABNORMAL) POC Influenza A/B, COVID-19 antigen (09/16/2024 11:11 AM NIGHT TIME NANNY) Influenza A Ag, POC Positive(A) Negative [facility] Influenza B Ag, POC Negative Negative [facility] COVID-19 Ag POC Presumptive Negative Presumptive Negative, Invalid [facility] Nasal 09/16/2024 11:1 1 AM NIGHT TIME NANNY us Silas Sharma NP POINT OF CARE TEST ORDERABLES F inal Result Performing Organization Address City/State/[facility] Co de Phone Number [facility] [address] [place] [address] * Dexa Axial Skeleton Bone Density 1 or 2 Site (09/12/2022 12:45 PM NIGHT TIME NANNY) Anatomical Region Laterality Modality Body N/A Mammography 09/13/2022 6:24 AM NIGHT TIME NANNY Narrative 09/13/2022 6:25 AM NIGHT TIME NANNY EXAM DESCRIPTION: DEXA AXIAL SKELETON BONE DENSITY 1 OR MORE SITES REASON FOR STUDY: 82 y/o year old F with given history of screening. Postmenopausal Software Maintenance Engineer/Model: Hologic Horizon A (S/N [id number]) CLINICAL INFORMATION: Current height: 62.5 inches Maximum [...] Jaime Davison M.D. MF: RONNI Report ID: [id number] Reading Location: [id number] Procedure Note Jaime Davison MD - 09/13/2022 EXAM DESCRIPTION: DEXA AXIAL SKELETON BONE DENSITY 1 OR MORE SITES REASON FOR STUDY: 82 y/o year old F with given history ofscreening. Postmenopausal Software Maintenance Engineer/Model: Hologic Horizon A (S/N [id number]) CLINICAL INFORMATION: Current height: 62.5 inches Maximum [...] Jaime Davison M.D. MF: RONNI Report ID: [id number] Reading Location: [id number] Jaime CAH IMIvette DXA PROCEDURES Final Result from Last 3 Months or Most Recently Relevant to Health Maintenance Insurance MEDICARE [employer] MEDICARE [facility] Address: [address] [address] [place] [address] IDPA MEDICARE [facility] Address: [address] [address] [place] [address] IDPA Care Teams Sheet Metal Duct Worker Supervisor Relationship Specialty Start Date End Date Evelyn Balderrama COOPERAGE SHOP SUPERVISOR [address] [facility] [address] [place] [address] PCP - General Family Medicine 10/01/24 Gt Cosme MD [address] [place] [address] Consulting Physician Gynecologic Oncology 04/17/23 Jaime Alex PA [address] [facility] [address] [place] [address] [place] [phone] Physician Director Of Mobile Marketing Orthopedic Surgery 04/17/23
--- OUTSIDE RECORDS SUMMARY | 2024-12-13 09:04 | XMS_ITS | Encounter Summary ---
Author Organization [facility] Care Team Providers Care Satellite Installation Technician Name Role Phone Gt Cosme MD Primary Care Provider + Levy Jaquez Primary Care Provide r Parrish Canseco MD Primary Care Provider + Jaime Billy MD Unavailable [phone] Gt Cosme MD Unavailable [phone] Jaime Billy MD Primary Care Provider + Jaime Alex Unavailable [phone] Taina Bunch DO Primary Care Provider [phone] Evelyn Balderrama NP Primary Care Provider Encounter Details Date Type Department Care Team (Latest Contact Info) Description 12/08/2015 Orders Only [facility] ProviderKennedy MD [address] [place] [id number] Social History Tobacco Use Types Packs/Day Years Used Date Smoking Tobacco: Never Assessed Comments Unknown Sex and Gender Information Value Date Recorded Sex Assigned at Not on file Legal Sex Female 7:57 AM SHIP FASTENER Gender Identity Not on file Sexual Orientation Not on file documented as of this encounter Plan of Treatment Not on file documented as of this encounter Procedures Procedure Name Priority Date/Time Associated Diagnosis Comments SCAN - LABS 12/09/2015 12:00 AM CDT documented in this encounter Results * SCAN - LABS (12/09/2015 12:00 AM CDT) Narrative 12/09/2015 12:00 AM CDT Ordered by an unspecified provider. us Historical Provider MD Final Res ult documented in this encounter Visit Diagnoses Not on filedocumented in this encounter Additional Health Concerns Infection Onset Date Last Indicated Resolved Time COVID: Suspected 09/16/2024 09/16/2024 09/16/2024 11:12 AM SHIP FASTENER Influenza, adult 09/16/2024 09/16/2024 09/23/2024 3:05 AM SHIP FASTENER documented as of this encounter Care Teams Satellite Installation Technician Relationship Specialty Start Date End Date Gt Cosme MD [address] [facility] [address] [place] [address] PCP - General 10/13/16 03/21/18 Levy Jaquez PA [address] [facility] [address] [place] [address] [place] [address] PCP - General Family Practice 03/22/18 12/30/18 Parrish Canseco MD [address] [place] [address] PCP - General Internal Medicine 12/31/18 04/01/20 Jaime Billy MD [address] [facility] [address] PCP - General Internal Medicine 04/17/23 08/15/24 Taina Bunch DO [address] [facility] [address] [place] [address] [place] [address] PCP - General Family Medicine 08/16/24 09/30/24 Evelyn Balderrama NP [address] [facility] [place] [address] PCP - General Family Medicine 10/01/24 Jaime Billy MD [address] [facility] [address] Referring Physician Internal Medicine 04/24/15 04/16/23 Gt Cosme MD [address] [place] [address] Consulting Physician Gynecologic Oncology 04/17/23 Jaime Alex PA [address] [facility] [place] [address] Physician Spa Concierge Orthopedic Surgery 04/17/23 documented as of this encounter
--- NOTE | 2024-12-13 09:08 | ED_ITS ---
HPI - Altered Mental Status General Chief Complaint: Altered Mental Status Stated Complaint: hallucinating, agitated Time Seen by Provider: 12/13/24 09:03 Source: patient and family Mode of arrival: ambulatory Limitations: no limitations History of Present Illness HPI narrative: This is a 84-year-old female with PMH of paroxysmal AFib, dementia who presents to the ED for chief complaint of altered mental status. She is here son and [id number], who works in our care coordination department. They state that she is becoming increasingly agitated over the past couple of days. She states that patient has had loosen a shins where she quotes hears babies crying. ? They state that the last time the symptoms occurred she ended up being septic with a UTI pneumonia. She states that she had paroxysmal AFib at that time but is not on any blood thinner. They state that she is oriented to her baseline with dementia, however the most concerning signs of the increased agitation at home. They do states she has had a bit of an increased cough but no urinary symptoms. Denies fevers, chills, abdominal pain, chest pain, shortness of breath, nausea, vomiting, diarrhea. Patient has no medical complaints at this time. She is not sure why she was brought here. States ?I just do not want to waste anyone's time. ? Related Data Allergies Allergy/AdvReac Type Severity Reaction Status Date / Time latex Allergy Rash Verified 12/13/24 09:13 Review of Systems 2 Review of Systems: All systems as dictated in HPI [facility] Past Medical History Medical History History of COPD Social History Social History Smoking status: Former smoker Tobacco type: cigarettes and e-cigarettes/vaping Second hand tobacco smoke exposure: No Smoking end date: 07/28/14 Alcohol intake: never Substance use: never Substance use type: does not use Do You Feel Safe in your Home?: Yes Lack of Transportation: No Lack of Food: Never True Current Housing: I Have Housing Concerned About Future Housing: No Difficulty Paying Gas/Electric Bills: No Difficulty Paying for Meds: No Currently Unemployed: No Education: High School Diploma/GED Difficulty w/ Childcare or Family Care: No Spiritual care concerns: No Exam 2 Narrative: GENERAL: Appears elderly and frail. HEAD: Normocephalic, atraumatic. EYES: PERRLA and EOMI. ENT: Nares clear, no rhinorrhea or epistaxis. Mucous membranes moist. Oropharynx without tonsillar hypertrophy exudate or other lesions. NECK: Supple. No adenopathy or masses. CHEST: No respiratory distress. Clear to auscultation. No wheezes rales or rhonchi HEART: Regular rate and rhythm. No murmur heard. Normal peripheral pulses. ABDOMEN: Soft, nontender, nondistended, normal active bowel sounds. MSK: Normal range of motion. No edema. SKIN: Warm, dry, no rash. NEURO: Alert and oriented x2-3. Unsure of situation and the time. Oriented to self and place. No focal deficits. Moves all extremities spontaneously. PSYCH: Normal mood and affect. Course Vital Signs Vital signs: Vital Signs Temperature 97.6 F 12/13/24 09:04 Pulse Rate 99 12/13/24 09:04 Respiratory Rate 20 12/13/24 09:04 Blood Pressure 154/80 H 12/13/24 09:04 Pulse Oximetry 95 12/13/24 09:04 Oxygen Delivery Room Air 12/13/24 09:04 Temperature 97.8 F 12/13/24 11:24 Pulse Rate 95 12/13/24 11:24 Respiratory Rate 20 12/13/24 11:24 Blood Pressure 130/80 12/13/24 11:24 Pulse Oximetry 96 12/13/24 11:24 Oxygen Delivery Room Air 12/13/24 09:30 MDM - Altered Mental Status MDM Narrative Medical decision making narrative: This is a 84-year-old female who presents to the ED for concern from family members for possible infections due to patient being agitated at home. They do know she has event history of dementia. Vitals are normal. Exam unremarkable overall. She is pleasantly demented. No neural deficits on exam. Lab work coming back within normal white count. She is not meeting sirs criteria and certainly does not appear septic. CMP unremarkable overall. Ammonia level normal. TSH normal. Urinalysis grossly normal. Drug screen normal. Head CT shows no acute findings. There is chronic appearing atrophy. Chest x-ray is also negative for any acute findings. Discussed the workup with the patient and family. I discussed that my suspicion would be a possible worsening dementia for this increased agitation and hallucinations today. They have follow-up with Neurology. They feel comfortable with plan for discharge at this time and will follow-up with the specialist. Patient will be discharged in stable condition. Supportive measures discussed and return precautions given. Patient is understanding and agreeable with plan for discharge with PCP follow-up. Lab Data 12/13/24 09:27 12/13/24 09:27 Labs: Lab Results 12/13/24 12/13/24 Range/Units 09:27 09:56 WBC 8.0 (4.5-10.0) K/mm3 RBC 5.15 (4.2-5.4) M/mm3 Hgb 14.8 (12.0-15.0) g/dL Hct 46.0 (37.0-47.0) % MCV 89.3 (80-100) fl MCH 28.7 (26-34) pg MCHC 32.2 (32-36) g/dl RDW 13.2 (11.5-14.5) % Plt Count 234 (150-375) k/mm3 MPV 9.3 (7.4-10.4) fl Immature Gran % (Auto) 0.6 H (0-0.5) % Neut % (Auto) 66.0 (45.5-73.1) % Lymph % (Auto) 23.0 (18.3-44.2) % Zapata % (Auto) 6.3 (2.6-8.5) % Eos % (Auto) 3.6 (0-4.4) % Baso % (Auto) 0.5 (0.2-1.2) % Lymph # (Auto) 1.83 (0.9-3.2) K/mm3 Zapata # (Auto) 0.5 (0.1-0.6) K/mm3 Eos # (Auto) 0.3 (0-0.3) K/mm3 Baso # (Auto) 0.0 (0.0-0.1) K/mm3 Abs Immat Gran (auto) 0.05 H (0.00-0.031) K/mm3 Absolute Neuts (auto) 5.3 (1.3-6.7) K/mm3 Absolute Nucleated RBC 0.000 (0.0-0.012) K/mm3 Nucleated RBC % 0.0 (0.0-0.2) % PT 13.7 (11.1-14.7) Seconds INR 1.0 APTT 29.8 (22.3-36.8) Seconds Sodium 139 (137-145) mmol/L Potassium 3.8 (3.4-5.0) mmol/L Chloride 101 (98-107) mmol/L Carbon Dioxide 29 (22-30) mmol/L Anion Gap 9 (4-12) mmol/L BUN 15 D (7-17) mg/dL Creatinine 0.85 (0.7-1.0) mg/dL Estim Creat Clear Calc 35 ml/min Estimated GFR > 60 (59 - ) Glucose 113 H (65-110) mg/dL Lactic Acid 2.0 (0.7-2.0) mmol/L Calcium 10.3 H (8.4-10.2) mg/dL Total Bilirubin 0.7 (0.2-1.3) mg/dL AST 34 (14-36) U/L ALT 22 (6-35) U/L Alkaline Phosphatase 80 (38-126) U/L Ammonia < 9 L (9-30) umol/L Total Creatine Kinase < 20 L (30-135) U/L Total Protein 8.0 (6.3-8.2) g/dL Albumin 4.2 (3.5-5.1) g/dL TSH 3.190 (0.465-4.680) uIU/mL Urine Color Yellow (Yellow) Urine Appearance Clear (Clear) Urine pH 6.5 (5.0-9.0) Ur Specific Dixon 1.010 (1.001-1.035) Urine Protein Negative (Negative) mg/dL Urine Glucose (UA) Negative (Negative) mg/dL Urine Ketones Negative (Negative) mg/dL Ur Blood (Man) Negative (Negative) Urine Nitrate Negative (Negative) Urine Bilirubin Negative (Negative) Urine Urobilinogen 0.2 (<2.0) mg/dL Leukocyte Esterase Rfl Negative (Negative) TOMY/UL Urine Opiates Screen Negative (Negative) Urine Methadone Screen Negative (Negative) Ur Barbiturates Screen Negative (Negative) Ur Phencyclidine Scrn Negative (Negative) Ur Amphetamine Screen Negative (Negative) U Benzodiazepines Scrn Negative (Negative) Urine Cocaine Screen Negative (Negative) U Cannabinoids Screen Negative (Negative) Discharge Plan Discharge Clinical Impression: Dementia Patient Disposition: Home Condition: Stable Instructions: Antibiotic Form Additional Instructions: Exam and imaging today are reassuring. Please take Z-Hector for the cough as well as Tessalon Perles. Follow-up closely with PCP and Neurology on this. If you have any new or worsening symptoms please return to the ER for further evaluation. Patient Language: Luxembourger Prescriptions: New azithromycin [Zithromax TRI-HECTOR] 500 mg tablet See Rx Instructions .ROUTE .COMPLEX Qty: 3 0RF Rx Instructions: For 250 mg dose pack: take 500 mg today (day 1), then 250 mg for 4 days (days 2-5) benzonatate 100 mg capsule 100 mg PO BID PRN (Reason: cough) Qty: 30 0RF No Action levofloxacin 750 mg tablet 750 mg PO DAILY Qty: 3 0RF cephalexin 500 mg capsule 500 mg PO Q12H 7 Days Qty: 14 0RF Follow-up/Referrals: UNKNOWN,DOCTOR [Primary Care Provider] - Time of Disposition: 10:44
--- NOTE | 2024-12-13 09:17 | ECG_ITS ---
Test Date: 2024-12-13 09:31:25 Measurements Intervals Liberty Rate: 94 P: 57 IN: 168 QRS: -2 QRSD: 77 T: 9 QT: 345 QTc: 433 Interpretive Statements SINUS RHYTHM LEFT VENTRICULAR HYPERTROPHY BORDERLINE R WAVE PROGRESSION, ANTERIOR LEADS MINIMAL Q WAVES- HIGH LATERAL LEADS BORDERLINE ST-T WAVE ABNORMALITY- INFERIOR LEADS BASELINE ARTIFACT- I, II, III, AVR, AVL, AVF, V1-V6 BORDERLINE ECG Compared to ECG 09/29/2024 20:01:22 No significant changes Electronically Signed On 12-13-2024 09:43:42 CDT by Jose Cruz Taylor D.O.
--- OUTSIDE RECORDS SUMMARY | 2024-12-13 09:27 | XMS_ITS | Referral Summary ---
Author Organization [facility] Address [address] [place] [address] Care Team Providers Care Hay Rake Operator Name Role Phone Gt Cosme MD Unavailable Jaime Alex Unavailable [phone] Evelyn Balderrama NP Primary Care Provider Encounters Date Type Department Care Team Description 12/12/2024 Telephone [facility] Primary Care at [address] [place] [phone] Evelyn Balderrama NP Symptom Based Call 10/18/2024 Telephone [facility] Primary Care at [address] [place] [phone] Evelyn Balderrama NP Medical Question/Miscellaneous 10/02/2024 Telephone [facility] Primary Care at [address] [place] [phone] Evelyn Balderrama NP Additional Services Or Orders 10/01/2024 Orders Only [facility] Primary Care at [address] [phone] Evelyn Balderrama NP Osteoporosis screening (Primary Dx); Postmenopausal 10/01/2024 Orders Only [facility] Primary Care at [address] [phone] Evelyn Balderrama NP Alzheimer's dementia, unspecified dementia severity, unspecified timing of dementia onset, unspecified whether behavioral, psychotic, or mood disturbance or anxiety (HCC) (Primary Dx); Physical deconditioning 10/01/2024 8:30 AM LUG LOADER Office Visit [facility] Primary Care at [address] [phone] Evelyn Balderrama NP Establishing care with new doctor, encounter for (Primary Dx); 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 behavioral disturbance, psychotic disturbance, mood disturbance, or anxiety (HCC); Age-related osteoporosis without current pathological fracture; History of ovarian cancer; Sleep disturbance; Gait abnormality; Cigarette nicotine dependence in remission; Body mass index (BMI) of 22.0 to 22.9 in adult 09/26/2024 Telephone [facility] [address] [place] [phone] Taina Bunch, DO Medical Question/Miscellaneous 09/26/2024 Telephone [facility] [address] [place] [phone] Taina Bunch, DO Additional Services Or Orders 09/26/2024 3:30 PM LUG LOADER Office Visit [facility] [address] [place] [phone] Taina Bunch, Pneumonia of both lungs due to infectious organism, unspecified part of lung (Primary Dx); Influenza A; Poor appetite; Sleep disturbance; Pressure injury of skin of sacral region, unspecified injury stage; 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 behavioral disturbance, psychotic disturbance, mood disturbance, or anxiety (HCC); Age-related osteoporosis without current pathological fracture 09/16/2024 Nurse Triage [facility] [address] [place] [phone] Love Clifton RN 09/16/2024 10:45 AM LUG LOADER Office Visit [facility] Convenient Care at [address] [phone] Silas Sharma NP Exposure to [...] 10/01/2024 Assessment & Plan (10/01/2024 9:08 AM LUG LOADER): Wt Readings from Last 3 Encounters: 10/01/24 [...] 09/26/2024 Assessment & Plan (10/01/2024 12:30 PM LUG LOADER): -New complaint -Likely associated with moderate late onset dementia -Recommendations for OTC melatonin nightly -Continue current treatment plan Frailty 08/16/2024 Assessment & Plan (08/17/2024 1:20 PM LUG LOADER): Encouraged patient ask for help when needed, be careful around the house when ambulating. Use cane in the home if needed for stability. 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, psychotic disturbance, mood disturbance, or anxiety 08/16/2024 Assessment & Plan (10/01/2024 12:29 PM LUG LOADER): -Recent diagnosis -Patient was recently diagnosed with moderate late onset dementia via slums screening at recent visit -Patient currently does not take medication for this -Currently lives with son and has been experiencing sleep disturbance -Recommendation for OTC melatonin nightly -Referral to neurology placed for expert evaluation -Continue current treatment plan Assessment & Plan (08/17/2024 1:21 PM LUG LOADER): Patient's scored poorly on a slums exam. Strongly encouraged patient to ask for help when needed at home. She currently lives with her son. Fatigue 08/16/2024 Assessment & Plan (08/17/2024 1:21 PM LUG LOADER): Home physical therapy ordered for further evaluation and treatment. Gait abnormality 08/16/2024 Assessment & Plan (10/01/2024 12:35 PM LUG LOADER): -Recent diagnosis not significantly improved -Patient recently was diagnosed with pneumonia, flu a, UTI which has left the patient physically deconditioned -Currently utilizing wheelchair for long distances -Referral for home health with PT/OT and wound care ordered -Continue current treatment plan Assessment & Plan (08/17/2024 1:22 PM LUG LOADER): Home PT ordered further evaluation and treatment. Pneumonia due to infectious organism 08/16/2024 Assessment & Plan (08/17/2024 1:22 PM LUG LOADER): Clinically improved, chest x-ray ordered, will follow. History of ovarian cancer 04/10/2019 Assessment & Plan (10/01/2024 12:28 PM LUG LOADER): -In remission -Follows for annual surveillance with specialists -Continue current treatment plan Chronic obstructive pulmonary disease 04/04/2018 Assessment & Plan (11/19/2019 1:40 PM CDT): Patient has mild COPD. She was advised to quit smoking. Continue with p.r.n. albuterol inhaler. Cigarette nicotine dependence in remission 02/26 Assessment & Plan (10/01/2024 9:08 AM LUG LOADER): Tobacco Use: Medium Risk (10/01/2024) Patient History [...] 05/24/2017 Assessment & Plan (10/01/2024 9:10 AM LUG LOADER): -chronic, controlled -last DEXA bone scan was in 2022; will repeat dexa bone scan -currently takes prolia infections -managed by orthopedics -encourage patient to continue weight-bearing exercises and vitamin-D/calcium supplement -continue current treatment plan Assessment & Plan (08/17/2024 1:20 PM LUG LOADER): Patient currently is followed by another provider [...] on file Legal Sex Female 7:57 AM LUG LOADER Gender Identity Not on file Sexual Orientation Not on file Occupation Industry Job Start Date Job End Date retired Not on file Not on file Not on file Last Filed Vital Signs Vital Sign Reading Time Taken Comments Blood Pressure 147/86 10/01/2024 8:30 AM LUG LOADER Pulse 74 10/01/2024 8:30 AM LUG LOADER Temperature 36.6 C (97.8 F) 09/26/2024 3:35 PM LUG LOADER Respiratory Rate 16 10/01/2024 8:30 AM LUG LOADER Oxygen Saturation 97% 10/01/2024 8:30 AM LUG LOADER Inhaled Oxygen Concentration - - Weight 56.4 kg (124 lb 4.8 oz) 10/01/2024 8:30 A M LUG LOADER Height 160 cm (5' 2.99 ) 10/01/2024 8:30 AM LUG LOADER Body Mass Index 22.02 10/01/2024 8:30 AM LUG LOADER Plan of Treatment Not on file Procedures Procedure Name Priority Date/Time Associated Diagnosis Comments POC INFLUENZA A/B, COVID-19 ANTIGEN Routine 09/16/2024 11:11 AM LUG LOADER Exposure to the flu DEXA AXIAL SKELETON BONE DENSITY 1 OR MORE SITES Schedule Routine, Read Routine (OP Routine) 09/12/2022 12:45 PM LUG LOADER Post-menopausal osteoporosis from Last 3 Months or Most Recently Relevant to Health Maintenance Results * (ABNORMAL) POC Influenza A/B, COVID-19 antigen (09/16/2024 11:11 AM LUG LOADER) Influenza A Ag, POC Positive(A) Negative [facility] Influenza B Ag, POC Negative Negative [facility] COVID-19 Ag POC Presumptive Negative Presumptive Negative, Invalid [facility] Nasal 09/16/2024 11:1 1 AM LUG LOADER us Silas Sharma NP POINT OF CARE TEST ORDERABLES F inal Result Performing Organization Address City/State/[facility] Co de Phone Number [facility] [address] [place] [address] * Dexa Axial Skeleton Bone Density 1 or 2 Site (09/12/2022 12:45 PM LUG LOADER) Anatomical Region Laterality Modality Body N/A Mammography 09/13/2022 6:24 AM LUG LOADER Narrative 09/13/2022 6:25 AM LUG LOADER EXAM DESCRIPTION: DEXA AXIAL SKELETON BONE DENSITY 1 OR MORE SITES REASON FOR STUDY: 82 y/o year old F with given history of screening. Postmenopausal Envelope Adjuster/Model: Hologic Horizon A (S/N [id number]) CLINICAL INFORMATION: Current height: 62.5 inches Maximum [...] Jaime Davison M.D. MF: RONNI Report ID: [id number] Reading Location: [id number] Procedure Note Jaime Davison MD - 09/13/2022 EXAM DESCRIPTION: DEXA AXIAL SKELETON BONE DENSITY 1 OR MORE SITES REASON FOR STUDY: 82 y/o year old F with given history ofscreening. Postmenopausal Envelope Adjuster/Model: Hologic Horizon A (S/N [id number]) CLINICAL INFORMATION: Current height: 62.5 inches Maximum [...] Jaime Davison M.D. MF: RONNI Report ID: [id number] Reading Location: [id number] Jaime CHA IMIvette DXA PROCEDURES Final Result from Last 3 Months or Most Recently Relevant to Health Maintenance Insurance MEDICARE IDPA MEDICARE IDPA MEDICARE IDPA Care Teams Hay Rake Operator Relationship Specialty Start Date End Date Evelyn Balderrama BAKERY SALES CLERK [address] [facility] [address] [place] [address] PCP - General Family Medicine 10/01/24 Gt Cosme MD [address] [place] [address] Consulting Physician Gynecologic Oncology 04/17/23 Jaime Alex PA [address] [facility] [address] [place] [address] Physician Recreation Assistant Orthopedic Surgery 04/17/23
--- OUTSIDE RECORDS SUMMARY | 2024-12-13 09:28 | XMS_ITS | Clinical Summary ---
Author Organization [facility] Address [address] [place] [address] Care Team Providers Care Brand Director Name Role Phone Gt Cosme MD Unavailable [phone] Jaime Alex Unavailable [phone] Evelyn Balderrama NP Primary Care Provider Allergies [...] 10/01/2024 Assessment & Plan (10/01/2024 9:08 AM DIRECT SUPPORT PROFESSIONAL CAREGIVER): Wt Readings from Last 3 Encounters: 10/01/24 [...] 09/26/2024 Assessment & Plan (10/01/2024 12:30 PM DIRECT SUPPORT PROFESSIONAL CAREGIVER): -New complaint -Likely associated with moderate late onset dementia -Recommendations for OTC melatonin nightly -Continue current treatment plan Frailty 08/16/2024 Assessment & Plan (08/17/2024 1:20 PM DIRECT SUPPORT PROFESSIONAL CAREGIVER): Encouraged patient ask for help when needed, be careful around the house when ambulating. Use cane in the home if needed for stability. 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, psychotic disturbance, mood disturbance, or anxiety 08/16/2024 Assessment & Plan (10/01/2024 12:29 PM DIRECT SUPPORT PROFESSIONAL CAREGIVER): -Recent diagnosis -Patient was recently diagnosed with moderate late onset dementia via slums screening at recent visit -Patient currently does not take medication for this -Currently lives with son and has been experiencing sleep disturbance -Recommendation for OTC melatonin nightly -Referral to neurology placed for expert evaluation -Continue current treatment plan Assessment & Plan (08/17/2024 1:21 PM DIRECT SUPPORT PROFESSIONAL CAREGIVER): Patient's scored poorly on a slums exam. Strongly encouraged patient to ask for help when needed at home. She currently lives with her son. Fatigue 08/16/2024 Assessment & Plan (08/17/2024 1:21 PM DIRECT SUPPORT PROFESSIONAL CAREGIVER): Home physical therapy ordered for further evaluation and treatment. Gait abnormality 08/16/2024 Assessment & Plan (10/01/2024 12:35 PM DIRECT SUPPORT PROFESSIONAL CAREGIVER): -Recent diagnosis not significantly improved -Patient recently was diagnosed with pneumonia, flu a, UTI which has left the patient physically deconditioned -Currently utilizing wheelchair for long distances -Referral for home health with PT/OT and wound care ordered -Continue current treatment plan Assessment & Plan (08/17/2024 1:22 PM DIRECT SUPPORT PROFESSIONAL CAREGIVER): Home PT ordered further evaluation and treatment. Pneumonia due to infectious organism 08/16/2024 Assessment & Plan (08/17/2024 1:22 PM DIRECT SUPPORT PROFESSIONAL CAREGIVER): Clinically improved, chest x-ray ordered, will follow. History of ovarian cancer 04/10/2019 Assessment & Plan (10/01/2024 12:28 PM DIRECT SUPPORT PROFESSIONAL CAREGIVER): -In remission -Follows for annual surveillance with specialists -Continue current treatment plan Chronic obstructive pulmonary disease 04/04/2018 Assessment & Plan (11/19/2019 1:40 PM CDT): Patient has mild COPD. She was advised to quit smoking. Continue with p.r.n. albuterol inhaler. Cigarette nicotine dependence in remission 02/26 Assessment & Plan (10/01/2024 9:08 AM DIRECT SUPPORT PROFESSIONAL CAREGIVER): Tobacco Use: Medium Risk (10/01/2024) Patient History [...] 05/24/2017 Assessment & Plan (10/01/2024 9:10 AM DIRECT SUPPORT PROFESSIONAL CAREGIVER): -chronic, controlled -last DEXA bone scan was in 2022; will repeat dexa bone scan -currently takes prolia infections -managed by orthopedics -encourage patient to continue weight-bearing exercises and vitamin-D/calcium supplement -continue current treatment plan Assessment & Plan (08/17/2024 1:20 PM DIRECT SUPPORT PROFESSIONAL CAREGIVER): Patient currently is followed by another provider [...] Type Department Care Team Description 12/12/2024 Telephone [facility] Primary Care at [address] [phone] Evelyn Balderrama NP Symptom Based Call 10/18/2024 Telephone [facility] Medical [facility] Primary Care at [address] [phone] Evelyn Balderrama NP Medical Question/Miscellaneous 10/02/2024 Telephone [facility] Primary Care at [address] [phone] Evelyn Balderrama, AMRITA Additional Services Or Orders 10/01/2024 8:30 AM DIRECT SUPPORT PROFESSIONAL CAREGIVER Office Visit [facility] Primary Care at [address] [phone] Evelyn Balderrama NP Establishing care with new doctor, encounter for (Primary Dx); 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 behavioral disturbance, psychotic disturbance, mood disturbance, or anxiety (HCC); Age-related osteoporosis without current pathological fracture; History of ovarian cancer; Sleep disturbance; Gait abnormality; Cigarette nicotine dependence in remission; Body mass index (BMI) of 22.0 to 22.9 in adult 10/01/2024 Orders Only [facility] Medical [facility] Primary Care at [address] [phone] Evelyn Balderrama NP Osteoporosis screening (Primary Dx); Postmenopausal 10/01/2024 Orders Only [facility] Care at [place] [address] [phone] Evelyn Balderrama, AMRITA Alzheimer's dementia, unspecified dementia severity, unspecified timing of dementia onset, unspecified whether behavioral, psychotic, or mood disturbance or anxiety (HCC) (Primary Dx); Physical deconditioning 09/26/2024 3:30 PM DIRECT SUPPORT PROFESSIONAL CAREGIVER Office Visit [facility] Medicine at [facility] [address] [place] [phone] Taina Bunch, Pneumonia of both lungs due to infectious organism, unspecified part of lung (Primary Dx); Influenza A; Poor appetite; Sleep disturbance; Pressure injury of skin of sacral region, unspecified injury stage; 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 behavioral disturbance, psychotic disturbance, mood disturbance, or anxiety (HCC); Age-related osteoporosis without current pathological fracture 09/26/2024 Telephone [facility] Medicine at [facility] [address] [place] [phone] Taina Bunch DO Medical Question/Miscellaneous 09/26/2024 Telephone [facility] at [facility] [address] [place] [phone] Taina Bunch DO Additional Services Or Orders 09/16/2024 10:45 AM DIRECT SUPPORT PROFESSIONAL CAREGIVER Office Visit [facility] Care at [address] [phone] Silas Sharma NP Exposure to the flu (Primary Dx); Pneumonia of both lungs due to infectious organism, unspecified part of lung 09/16/2024 Nurse Triage [facility] at [facility] [address] [place] [phone] Love Clifton RN from Last 3 Months [...] on file Legal Sex Female 7:57 AM DIRECT SUPPORT PROFESSIONAL CAREGIVER Gender Identity Not on file Sexual Orientation [...] Comments Blood Pressure 147/86 10/01/2024 8:30 AM DIRECT SUPPORT PROFESSIONAL CAREGIVER Pulse 74 10/01/2024 8:30 AM DIRECT SUPPORT PROFESSIONAL CAREGIVER Temperature 36.6 C (97.8 F) 09/26/2024 3:35 PM DIRECT SUPPORT PROFESSIONAL CAREGIVER Respiratory Rate 16 10/01/2024 8:30 AM DIRECT SUPPORT PROFESSIONAL CAREGIVER Oxygen Saturation 97% 10/01/2024 8:30 AM DIRECT SUPPORT PROFESSIONAL CAREGIVER Inhaled Oxygen Concentration - - Weight 56.4 kg (124 lb 4.8 oz) 10/01/2024 8:30 A M DIRECT SUPPORT PROFESSIONAL CAREGIVER Height 160 cm (5' 2.99 ) 10/01/2024 8:30 AM DIRECT SUPPORT PROFESSIONAL CAREGIVER Body Mass Index 22.02 10/01/2024 8:30 AM DIRECT SUPPORT PROFESSIONAL CAREGIVER Plan of Treatment Health Maintenance Due Date [...] A/B, COVID-19 ANTIGEN Routine 09/16/2024 11:11 AM DIRECT SUPPORT PROFESSIONAL CAREGIVER Exposure to the flu DEXA AXIAL SKELETON BONE DENSITY 1 OR MORE SITES Schedule Routine, Read Routine (OP Routine) 09/12/2022 12:45 PM DIRECT SUPPORT PROFESSIONAL CAREGIVER Post-menopausal osteoporosis from Last 3 Months or Most Recently Relevant to Health Maintenance Results * (ABNORMAL) POC Influenza A/B, COVID-19 antigen (09/16/2024 11:11 AM DIRECT SUPPORT PROFESSIONAL CAREGIVER) Influenza A Ag, POC Positive(A) Negative [facility] Influenza B Ag, POC Negative Negative [facility] COVID-19 Ag POC Presumptive Negative Presumptive Negative, Invalid [facility] Nasal 09/16/2024 11:1 1 AM DIRECT SUPPORT PROFESSIONAL CAREGIVER Silas Sharma NP POINT OF CARE TEST ORDERABLES F inal Result [facility] [address] [place] [address], [facility] * Dexa Axial Skeleton Bone Density 1 or 2 Site (09/12/2022 12:45 PM DIRECT SUPPORT PROFESSIONAL CAREGIVER) Anatomical Region Laterality Modality Body N/A Mammography 09/13/2022 6:24 AM DIRECT SUPPORT PROFESSIONAL CAREGIVER Narrative 09/13/2022 6:25 AM DIRECT SUPPORT PROFESSIONAL CAREGIVER EXAM DESCRIPTION: DEXA AXIAL SKELETON BONE DENSITY 1 OR MORE SITES REASON FOR STUDY: 82 y/o year old F with given history of screening. Postmenopausal Copyholder/Model: Bench A (S/N [id number]) CLINICAL INFORMATION: Current height: 62.5 inches Maximum [...] Jaime Davison M.D. MF: RONNI Report ID: [id number] Reading Location: [id number] Procedure Note Jaime Davison MD - 09/13/2022 EXAM DESCRIPTION: DEXA AXIAL SKELETON BONE DENSITY 1 OR MORE SITES REASON FOR STUDY: 82 y/o year old F with given history ofscreening. Postmenopausal Copyholder/Model: Bench A (S/N [id number]) CLINICAL INFORMATION: Current height: 62.5 inches Maximum [...] Jaime Davison M.D. MF: RONNI Report ID: [id number] Reading Location: [place] [address] Jaime CHA IMG DXA PROCEDURES Final Result from Last 3 Months or Most Recently Relevant to Health Maintenance Insurance MEDICARE [facility] Address: [facility] [address] [place] [address] [place] MEDICARE IDPA MEDICARE IDPA Care Teams Brand Director Relationship Specialty Start Date End Date Evelyn Balderrama NP [address] [facility] [address] [place] [address] PCP - General Family Medicine 10/01/24 Gt Cosme MD [address] [place] [address] Consulting Physician Gynecologic Oncology 04/17/23 Jaime Alex PA [address] [facility] [address] [place] [address] Physician Fashion Designer Orthopedic Surgery 04/17/23
--- OUTSIDE RECORDS SUMMARY | 2024-12-13 09:28 | XMS_ITS | Encounter Summary ---
Author Organization [facility] Address [address] [place] [address] Care Team Providers Care Fine Sander Name Role Phone Gt Cosme MD Unavailable [phone] Jaime Alex Unavailable [phone] Evelyn Balderrama NP Primary Care Provider Reason for Visit * Reason Onset Date Comments Symptom Based Call 12/12/2024 Encounter Details Date Type Department Care Team (Late st Contact Info) Description 12/12/2024 Telephone [facility] Medical Group Primary Care at [address] [phone] Evelyn Balderrama, COMBAT CONTROL [address] [place] [address] Symptom Based Call Social History Tobacco [...] on file Legal Sex Female 7:57 AM TECHNICIAN AUTOMATED EQUIPMENT Gender Identity Not on file Sexual Orientation [...] for care today. * Telephone Encounter - Karyna Araujo MA - 12/12/2024 12:45 PM CDT [...] on filedocumented in this encounter Care Teams Fine Sander Relationship Specialty Start Date End Date Evelyn Balderrama NP [address] [facility] [address] [place] [address] PCP - General Family Medicine 10/01/24 Gt Cosme MD [address] [place] [address] Consulting Physician Gynecologic Oncology 04/17/23 Jaime Alex PA [address] [facility] [address] [address] Physician Gear Grinder Orthopedic Surgery 04/17/23 documented as of this encounter
--- OUTSIDE RECORDS SUMMARY | 2024-12-13 09:28 | XMS_ITS | Encounter Summary ---
Author Organization [facility] Care Team Providers Care Coiled Tubing Supervisor Name Role Phone Gt Cosme MD Primary Care Provider + Levy Jaquez Primary Care Provide r Parrish Canseco MD Primary Care Provider + Jaime Billy MD Unavailable [phone] Gt Cosme MD Unavailable [phone] Jaime Billy MD Primary Care Provider + Jaime Alex Unavailable [phone] Taina Bunch DO Primary Care Provider [phone] Evelyn Balderrama NP Primary Care Provider Encounter Details Date Type Department Care Team (Latest Contact Info) Description 12/08/2015 Orders Only [facility] ProviderKennedy MD [address] [place] [address] Social History Tobacco Use Types Packs/Day Years Used Date Smoking Tobacco: Never Assessed Comments Unknown Sex and Gender Information Value Date Recorded Sex Assigned at Not on file Legal Sex Female 7:57 AM HOTEL OR MOTEL RECEPTIONIST Gender Identity Not on file Sexual Orientation [...] COVID: Suspected 09/16/2024 09/16/2024 09/16/2024 11:12 AM HOTEL OR MOTEL RECEPTIONIST Influenza, adult 09/16/2024 09/16/2024 09/23/2024 3:05 AM HOTEL OR MOTEL RECEPTIONIST documented as of this encounter Care Teams Coiled Tubing Supervisor Relationship Specialty Start Date End Date Gt Cosme MD [address] [facility] [address] [place] [address] PCP - General 10/13/16 03/21/18 Levy Jaquez PA [address] [facility] [address] [place] [address] PCP - General Family Practice 03/22/18 12/30/18 Parrish Canseco MD [address] [place] [address] PCP - General Internal Medicine 12/31/18 04/01/20 Jaime Billy MD [address] [facility] [place] [address] PCP - General Internal Medicine 04/17/23 08/15/24 Taina Bunch DO [address] [facility] [address] [place] [address] PCP - General Family Medicine 08/16/24 09/30/24 Evelyn Balderrama NP [address] [facility] [place] [place] [address] PCP - General Family Medicine 10/01/24 Jaime Billy MD [address] [facility] [place] [address] Referring Physician Internal Medicine 04/24/15 04/16/23 Gt Cosme MD [address] [place] [address] Consulting Physician Gynecologic Oncology 04/17/23 Jaime Alex PA [address] [facility] [place] [address] Physician Senior Pensions Administrator Orthopedic Surgery 04/17/23 documented as of this encounter
[2024-12-13 09:30] VITALS: O2SAT 96
[2024-12-13 09:35] LABS: Basophils Percent Auto 0.5 % (0.2-1.2); Eosinophils Absolute Auto 0.3 K/mm3 (0-0.3); Eosinophils Percent Auto 3.6 % (0-4.4); Hemoglobin 14.8 g/dL (12.0-15.0); Immature Granulocyte Absolute 0.05 K/mm3 (0.00-0.031); Immature Granulocyte Percent A 0.6 % (0-0.5); Lymphocytes Absolute Auto 1.83 K/mm3 (0.9-3.2); Mean Corpuscular HGB Conc 32.2 g/dl (32-36); Mean Corpuscular Hemoglobin 28.7 pg (26-34); Mean Corpuscular Volume 89.3 fl (80-100); Mean Platelet Volume 9.3 fl (7.4-10.4); Monocytes Absolute Auto 0.5 K/mm3 (0.1-0.6); Monocytes Percent Auto 6.3 % (2.6-8.5); Neutrophils Absolute Auto 5.3 K/mm3 (1.3-6.7); Platelet Count Result 234 k/mm3 (150-375); Red Blood Count 5.15 M/mm3 (4.2-5.4); Red Cell Distribution Width 13.2 % (11.5-14.5)
[2024-12-13 09:41] LABS: Ammonia < 9 umol/L (9-30)
[2024-12-13 09:44] LABS: Alanine Aminotransferase 22 U/L (6-35); Albumin Level 4.2 g/dL (3.5-5.1); Alkaline Phosphatase 80 U/L (38-126); Anion Gap 9 mmol/L (4-12); Aspartate Amino Transferase 34 U/L (14-36); Bilirubin,Total 0.7 mg/dL (0.2-1.3); Blood Urea Nitrogen 15 mg/dL (7-17); Calcium 10.3 mg/dL (8.4-10.2); Carbon Dioxide 29 mmol/L (22-30); Chloride 101 mmol/L (98-107); Creatine Kinase < 20 U/L (30-135); Estimated CRCL calculation 35 ml/min; Estimated Glomerular Filt Rate > 60; Glucose 113 mg/dL (65-110); Potassium 3.8 mmol/L (3.4-5.0); Sodium 139 mmol/L (137-145)
[2024-12-13 09:47] LABS: Prothrombin Time 13.7 Seconds (11.1-14.7)
[2024-12-13 09:48] LABS: Partial Thromboplastin Time 29.8 Seconds (22.3-36.8)
[2024-12-13 10:05] LABS: Add Urine Microscopic? NO; Appearance Urine Clear (Clear); Bilirubin Urine Negative (Negative); Blood Urine Negative (Negative); Color Urine Yellow (Yellow); Glucose Urine UA Negative (Negative); Ketones Urine Negative (Negative); Leukocyte Esterase Ur Negative LEU/UL (Negative); Nitrate Urine Negative (Negative); Protein Urine Negative (Negative); Urobilinogen Urine 0.2 mg/dL (<2.0); pH Urine 6.5 (5.0-9.0)
[2024-12-13 10:21] LABS: Amphetamine Screen Urine Negative (Negative); Barbiturate Screen Urine Negative (Negative); Benzodiazepines Screen Urine Negative (Negative); Cannabinoid Screen Urine Negative (Negative); Cocaine Screen Urine Negative (Negative); Methadone Screen Urine Negative (Negative); Opiate Screen Urine Negative (Negative); Phencyclidine Screen Urine Negative (Negative)
[2024-12-13 11:24] VITALS: BP 130/80; PULSE 95; RESP 20; TEMP 36.6; O2SAT 96
== END 2024-12-13 11:24 | disposition home or self-care (01) ==
PROVIDERS: Emergency Provider Physician Assistant
DX: R45.1 Restlessness and agitation (principal); F03.911 Unspecified dementia, unspecified severity, with agitation; I48.0 Paroxysmal atrial fibrillation; J44.9 Chronic obstructive pulmonary disease, unspecified; Z87.891 Personal history of nicotine dependence; Z79.899 Other long term (current) drug therapy
CPT/HCPCS: 36415; 70450; 71045; 80053; 80307; 81003; 82140; 82550; 83605; 84443; 85025; 85610; 85730; 87040; 93005; 99284

== ENCOUNTER 2025-07-03 07:34 | Inpatient (IN) | payer MEDICARE, MEDICAID, SELFPAY ==
--- OUTSIDE RECORDS SUMMARY | 2024-10-10 08:00 | XMS_ITS ---
Author Organization [facility] Address [address] [place], [place] [id number] Care Team Providers Care Traffic Clerk Name Role Phone JOSE A HEIDE Unavailable [phone] Evelyn Bladerrama Unavailable Unavailable HEIDE MUNGUIA Unavailable [phone] REASON FOR VISIT nail fungus, GC Encounters Encounter Location Date Provider Diagnosis [facility] [place] [address] [place], [place] [id number] 10/10/2024 HEIDE MUNGUIA Plan Of Treatment Next Appt Details Provider Name:HEIDEMANNY NARANJO, 01:00:00 PM, [address], [place], [place], [id number], Progress Notes * ULISESMaribellMelida ADOB: [birth year] (85 yo F)Acc No.[id number]:10/10/2024 Progress Notes Patient: Melida Hendrix Provider: Derek Munguia DPM :1940 A ge:84 Y S ex:Female Date:10/10/2024 Address[address] [phone] Subjective: * Chief Complaints: * n ail fungus, GC * Electronic signature of HEIDE MUNGUIA DPM on 07/03/2025 at 04:30 PM CUSTOMER SERVICE REPRESENTATIVE Sign off status: Pending * Provider: Derek Munguia, VIRIDIANA Date: 0 10/10/2024 Generated for Carmelo rodriguez/Elsie/Luci on: 1 09/02/2024 04:30 PM CUSTOMER SERVICE REPRESENTATIVE
--- OUTSIDE RECORDS SUMMARY | 2024-11-04 07:50 | XMS_ITS ---
Author Organization [facility] Address [address] [place], [place] [id number] Care Team Providers Care Arborer Name Role Phone HEIDE NARANJO Unavailable [phone] Evelyn Balderrama Unavailable Unavailable Allergies Allergen (clinical drug ingredient) Drug/Non Drug Allergy documented on EMR Reaction Allergy Type Onset Date Status Latex Latex Unknown Allergy Active REASON FOR VISIT Patient presents for at-risk foot care . The patient has painful toenails that cause difficulty with ambulation and shoegear. 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 NAIL DEBRIDEMENT: Nails 1-5 Bilateral were debrided extensively with nail nippers and emery board, reducing length and girth to pink healthy tissue with any subungual debris and necrotic tissue removed Next Appt Details Follow Up: 10-12 Weeks, Reas on: At Risk Foot care, sooner if problems arise Provider Name:HEIDE NARANJO, 01:00:00 PM, [address], [facility], [place], [place], [id number], History and Physical Notes * HPI (History of Present Illness) Category Sub-Category Detail Notes Category Not es HPI New Complaint Patient presents for a new patient consultation. Patient presents for a general care visit today. Patient denies being diabetic, denies taking blood thinners, and also denies taking a daily aspirin. MA LB sample Examination Category Sub-Category Detail Notes Category Not es Dermatologic Skin findings: Skin is thin, at rophic and lacking pedal hair Nail pathology: Nails 1, 2, 3, 4, an d 5 bilateral are elongated, thick, discolored, and dystrophic with subungual debris. They are painful to palpation Neurologic Gross sensation Gross sensation is intact to light touch Vascular Dorsalis pedis pulse: 1/4 bilateral Edema: No edema, bilateral Capillary refill: greater than 3 secon ds Posterior tibial pulse: 0/4 bilateral Musculoskeletal Muscle Strength Muscle strength is 5/5 in regards to dorsiflexion, plantarflexion, inversion, and eversion in bilateral lower extremities Constitutional Constitutional The patient is a wake, alert, well developed, well groomed and well nourished Progress Notes * Melida AKBAR ADOB: [birth year] (85 yo F)Acc No.[id number]:11/04/2024 Progress Notes Patient: Melida Hendrix Provider: Derek Naranjo DPM :1940 A ge:84 Y S ex:Female Date:11/04/2024 Address:[address] [place], [place] [id number] Subjective: * Chief Complaints: * Leo hemphill presents for at-risk foot care . The patient has painful toenails that cause difficulty with ambulation and shoegear. The onset is gradual * HPI: H PI: New Complaint Leo hemphill presents for a new patient consultation. Patient presents for a general care visit today. Patient denies being diabetic, denies taking blood thinners, and also denies taking a daily aspirin. MA LB. sample. * ROS: G eneral / Constitutional: Patient denies c hills, fever, weight loss. ? M usculoskeletal: Patient denies w eakness, broken foot bone. ? P eripheral Vascular: Patient denies p ain / cramping in legs after exertion, ulceration of feet. S kin: Patient complains of f ungal nails, nail changes. ? N eurologic: Patient denies b alance difficulty, confusion, difficulty speaking, dizziness. * Medications: N one * Allergies: L atexyesAllergies Verified. Objective: * Vitals: S hoe Size: 9, Wt: 120 lbs, Wt-k.43 kg. * Examination: C onstitutional: Constitutional T he patient is awake, alert, well developed, well groomed and well nourished. D ermatologic: Skin findings: S kin is thin, atrophic and lacking pedal hair. Nail pathology: N ails 1, 2, 3, 4, and 5 bilateral are elongated, thick, discolored, and dystrophic with subungual debris. They are painful to palpation. ? V ascular: Dorsalis pedis pulse: 1 /4 b ilateral. Posterior tibial pulse: 0 /4 b ilateral. Capillary refill: g reater than 3 seconds. Edema: N o edema, bilateral. N eurologic: Gross sensation G ross sensation is intact to light touch.? M usculoskeletal: Muscle Strength M uscle strength is 5/5 in regards to dorsiflexion, plantarflexion, inversion, and eversion in bilateral lower extremities. ? Assessment: * Assessment: 1. T sherlyna unguium - B35.1 (Primary) 2 . P ain in right toe(s) - M79.674? 3. P ain in left toe(s) - M79.675 4 . A therosclerosis of sycuan arteries of extremities with intermittent claudication, bilateral legs - I70.213 Plan: * Treatment: * Procedure Codes: 1 1721 DEBRIDE NAIL, 6 OR MORE, Modifiers: Q8 * Follow Up: 1 0-12 Weeks (Reason: At Risk Foot care, sooner if problems arise) Billing Information: * Visit Code: 36373 Office Visit, New Pt., Level 3. Modifiers: 25 * Procedure Codes: 82087 DEBRIDE NAIL, 6 OR MORE. Modifiers: Q8 * Electronic signature of HEIDE NARANJO DPM on 07/03/2025 at 04:30 PM CLINICAL ASSESSMENT MANAGER Sign off status: Pending * Provider: Derek Naranjo DPM Date: 0 11/04/2024 Generated for Carmelo rodriguez/Elsie/Luci on: 1 09/02/2024 04:30 PM CLINICAL ASSESSMENT MANAGER
--- OUTSIDE RECORDS SUMMARY | 2025-05-05 08:20 | XMS_ITS ---
Author Organization [facility] Address [address] [place], [place] [id number] Care Team Providers Care Parachute Folder Name Role Phone HEIDE NARANJO Unavailable [phone] Evelyn Balderrama Unavailable Unavailable Allergies Allergen (clinical drug ingredient) Drug/Non Drug Allergy documented on EMR Reaction Allergy Type Onset Date Status Latex Latex Unknown Allergy Active REASON FOR VISIT Patient presents for at-risk foot care . The patient has painful toenails and calluses that are causing difficulty with ambulation and shoegear. The onset is gradual Vital Signs Weight 120 lbs 05/05/2025 Weight-kg 54.43 kg 05/05/2025 Encounters Encounter Location Date Provider Diagnosis [facility] [address] [place], [place] [id number] 05/05/2025 HEIDE NARANJO Tinea unguium B35.1 ; Pain in right foot M79.671 ; Pain in left foot M79.672 ; Atherosclerosis of [place] arteries of extremities with intermittent claudication, bilateral legs I70.213 and Acquired keratosis [keratoderma] palmaris et plantaris L85.1 Assessments Encounter Date Diagnosis (ICD Code) Assessment Notes Treatment Notes Treatment Clinical Notes Section Notes 05/05/2025 Tinea unguium (ICD-10 - B35.1) Nails 1-5 Bilateral were debrided extensively with nail nippers and emery board, reducing length and girth to pink healthy tissue with any subungual debris and necrotic tissue removed 05/05/2025 Pain in right foot (ICD-10 - M79.671) 05/05/2025 Pain in left foot (ICD-10 - M79.672) 05/05/[address] [place] arteries of extremities with intermittent claudication, bilateral legs (ICD-10 - I70.213) 05/05/2025 Acquired keratosis [keratoderma] palmaris et plantaris (ICD-10 - L85.1) A total of 2 corns or calluses, as described in the note above, were cut and pared utilizing a #15 blade Plan Of Treatment Treatment Notes Assessment Notes Tinea unguium Nails 1-5 Bilateral were debrided extensively with nail nippers and emery board, reducing length and girth to pink healthy tissue with any subungual debris and necrotic tissue removed Acquired keratosis [keratode rma] palmaris et plantaris A total of 2 corns or calluses, as described in the note above, were cut and pared utilizing a #15 blade Next Appt Details Follow Up: 10 - 12 weeks, Re ason: At-Risk Foot care, sooner if problems develop. Provider Name:HEIDE NARANJO, 01:00:00 PM, [address], [place], [place], [id number], History and Physical Notes * HPI (History of Present Illness) Category Sub-Category Detail Notes Category Not es HPI General care Patient presents to the office for at risk foot care. Patient states that their nails are thickened, elongated and painful. Patient states that it is aggravated by shoe gear. Onset is gradual. Patient denies being diabetic., Patient denies taking blood thinners., Date last seen by Dr. Balderrama was March 2025., Initials ab Examination Category Sub-Category Detail Notes Category Not es Dermatologic Skin findings: Skin is thin, at rophic and lacking pedal hair Nail pathology: Nails 1, 2, 3, 4, an d 5 bilateral are elongated, thick, discolored, and dystrophic with subungual debris. They are painful to palpation Hypertrophic / hyperkeratotic lesion: pl yue aspect of the left and right 1st metatarsal head Neurologic Gross sensation Grossly intact t o light touch. There is negative Tinel's sign Vascular Dorsalis pedis pulse: 1/4 bilateral Edema: No edema bilateral Capillary refill: greater than 3 secon ds Posterior tibial pulse: 0/4 bilateral Physical Examination General appearance: Alert, pleasant, well-nourished and in no acute distress Musculoskeletal Muscle Strength Muscle strength is 5/5 in regards to dorsiflexion, plantarflexion, inversion, and eversion in bilateral lower extremities Progress Notes * Melida AKBAR ADOB: [birth year] (85 yo F)Acc No.[id number]:05/05/2025 Patient: Melida Hendrix Provider: Derek Naranjo DPM :1940 A ge:84 Y S ex:Female Date:05/05/2025 Address:[address] [place], [place] [id number] Subjective: * Chief Complaints: * Leo hemphill presents for at-risk foot care . The patient has painful toenails and calluses that are causing difficulty with ambulation and shoegear. The onset is gradual * HPI: H PI: General care Leo hemphill presents to the office for at risk foot care. Patient states that their nails are thickened, elongated and painful. Patient states that it is aggravated by shoe gear. Onset is gradual. Patient denies being diabetic., Patient denies taking blood thinners., Date last seen by Dr. Balderrama was March 2025., Initials ab. * Medical History: No Medical History Documented Medical History Verified * Surgical History: No Surgical History documented. Surgical History verified. * Hospitalization/Major Diagno stic Procedure: No Hospitalization Documented. Hospitalization Verified. * Family History: N o Family History documented.. F amily History Verified.. * Social History: Social History Verified. No Social History documented. * Medications: N one * Allergies: L atexyesAllergies Verified. Objective: * Vitals: S hoe Size: 9, Wt: 120 lbs, Wt-k.43 kg. * Examination: P hysical Examination: General appearance: A lert, pleasant, well-nourished and in no acute distress. D ermatologic: Skin findings: S kin is thin, atrophic and lacking pedal hair. Hypertrophic / hyperkeratotic lesion: p lantar aspect of the left and right 1st metatarsal head. Nail pathology: N ails 1, 2, 3, 4, and 5 bilateral are elongated, thick, discolored, and dystrophic with subungual debris. They are painful to palpation. ? V ascular: Dorsalis pedis pulse: 1 /4 b ilateral. Posterior tibial pulse: 0 /4 bilateral. Capillary refill: g reater than 3 seconds. Edema: N o edema bilateral. N eurologic: Gross sensation G rossly intact to light touch. There is negative Tinel's sign. M usculoskeletal: Muscle Strength M uscle strength is 5/5 in regards to dorsiflexion, plantarflexion, inversion, and eversion in bilateral lower extremities. ? Assessment: * Assessment: 1. T inea unguium - B35.1 (Primary) 2 . P ain in right foot - M79.671 ? 3 . P ain in left foot - M79.672 4 . A therosclerosis of [place] arteries of extremities with intermittent claudication, bilateral legs - I70.213 5 . Acquired keratosis [keratoderma] palmaris et plantaris - L85.1 Plan: * Treatment: 2. A cquired keratosis [keratoderma] palmaris et plantaris Notes: A total of 2 corns or calluses, as described in the note above, were cut and pared utilizing a #15 blade * Procedure Codes: 1 1056 TRIM SKIN LESIONS, 2 TO 4, Modifiers: Q8 37888 DEBRIDE NAIL, 6 OR MORE, Modifiers: 59 , Q8 * Preventive Medicine: Screenings: F all risk screening F all Risk Assessment: N o falls in the past year. * Follow Up: 1 0 - 12 weeks (Reason: At-Risk Foot care, sooner if problems develop.) Billing Information: * Procedure Codes: 05389 TRIM SKIN LESIONS, 2 TO 4. Modifiers: Q8 36454 DEBRIDE NAIL, 6 OR MORE. Modifiers: 59, Q8 * Electronic signature of HEIDE NARANJO DPM on 07/03/2025 at 04:30 PM [employer] REPA[employer]ER Sign off status: Pending * Provider: Derek Naranjo DPM Date: 0 05/05/2025 Generated for Carmelo rodriguez/Elsie/Lalitaitting on: 1 09/02/2024 04:30 PM [employer] REPAIRER
[2025-07-03] VITALS (11 sets, daily range): BP systolic 138–159; BP diastolic 62–110; PULSE 77–93; RESP 14–28; TEMP 36.2–36.6; O2SAT 94–98; BMI 22.6
--- NOTE | ~2025-07-03 | CT_ITS ---
EXAMINATION: CT brain wo paty, 07/03/2025 10:20 INSPECTOR EYEGLASS FRAMES HISTORY: weakness COMPARISON: No comparisons available. Technique: Axial images obtained of the brain without contrast. One or more of the following dose reduction techniques were used: automated exposure control, adjustment of the mA and/or kV according to patient size, use of iterative reconstruction technique. Findings: No acute infarct or parenchymal hemorrhage. No abnormal mass or mass effect. No midline shift. No extra-axial fluid collections. No hydrocephalus. Mastoid air cells unremarkable. Sinuses and orbits unremarkable. No acute fracture. No significant facial or scalp soft tissue swelling evident. No radiopaque foreign body is seen. Impression: 1.No acute intracranial abnormality. Reviewed, dictated and finalized at location P. ECTOR EYEGLASS FRAMES Impression: 1.No acute intracranial abnormality.
--- NOTE | ~2025-07-03 | XR_ITS ---
EXAMINATION: XR chest 2V, 07/03/2025 8:30 SOFTWARE DEVELOPMENT MANAGER HISTORY: weakness COMPARISON: No comparisons available. Technique: 2 views obtained. Findings: The lungs are clear, no effusion. No pneumothorax. Heart is normal size. Mediastinal and hilar contours are within normal limits. Bony thorax no acute abnormality. Impression: No acute cardiopulmonary abnormality. Reviewed, dictated and finalized at location P. WARE DEVELOPMENT MANAGER Impression: No acute cardiopulmonary abnormality.
--- NOTE | ~2025-07-03 | CT_ITS ---
EXAM/PROCEDURE: CT diagnostic chest wo con HISTORY: cough, fever COMPARISON: August 07, 2024 TECHNIQUE: Noncontrast chest CT FINDINGS: No focal consolidation or pneumonia. No effusion or pneumothorax. Mild to moderate fibrosing changes mildly worse compared with 2023 exam. There is also moderately severe diffuse centrilobular emphysematous changes. Heart and great vessels appear stable with no evidence of aneurysm. No significant pericardial effusion or bulky lymphadenopathy. Prominent left renal cyst slightly increased in size. Diffuse degenerative osteopenic changes throughout the bones which otherwise appear intact. IMPRESSION: No acute findings. Chronic appearing findings as above. Reviewed, dictated and finalized at location A. R MAKING MACHINE OPERATOR
--- NOTE | 2025-07-03 07:52 | ECG_ITS ---
Test Date: 2025-07-03 08:08:30 Measurements Intervals [place] Rate: 83 P: 28 MT: 175 QRS: -4 QRSD: 71 T: 13 QT: 365 QTc: 429 Interpretive Statements SINUS RHYTHM MODERATE VOLTAGE CRITERIA FOR LVH, CONSIDER NORMAL VARIANT [MEETS CRITERIA IN ONE OF: R(aVL), S(V1), R(V5), R(V5/V6)+S(V1)] NONSPECIFIC T-WAVE ABNORMALITIES Compared to ECG 12/13/2024 09:31:25 No significant changes Electronically Signed On 07-03-2025 09:02:41 [employer]S [employer] by Jorge Luis Yadav M.D.
[2025-07-03 08:12] LABS: Hematocrit 44.8 % (37.0-47.0); Hemoglobin 14.6 g/dL (12.0-15.0); Immature Granulocyte Percent A 0.3 % (0-0.5); Lymphocytes Absolute Auto 0.92 K/mm3 (0.9-3.2); Mean Corpuscular HGB Conc 32.6 g/dl (32-36); Mean Corpuscular Hemoglobin 28.6 pg (26-34); Mean Corpuscular Volume 87.7 fl (80-100); Nucleated Red Blood Cells Absolute Auto 0.000 K/mm3 (0.0-0.012); Nucleated Red Blood Cells Perc 0.0 % (0.0-0.2); Platelet Count Result 160 k/mm3 (150-375); Red Blood Count 5.11 M/mm3 (4.2-5.4); White Blood Count 5.8 K/mm3 (4.5-10.0)
[2025-07-03 08:31] LABS: Alanine Aminotransferase 14 U/L (6-35); Albumin Level 4.0 g/dL (3.5-5.1); Alkaline Phosphatase 84 U/L (38-126); Anion Gap 7 mmol/L (4-12); Aspartate Amino Transferase 30 U/L (14-36); Bilirubin,Total 1.1 mg/dL (0.2-1.3); Blood Urea Nitrogen 11 mg/dL (7-17); Calcium 10.1 mg/dL (8.4-10.2); Carbon Dioxide 29 mmol/L (22-30); Chloride 99 mmol/L (98-107); Estimated CRCL calculation 28 ml/min; Estimated Glomerular Filt Rate 47; Glucose 97 mg/dL (65-110); Potassium 3.8 mmol/L (3.4-5.0); Sodium 135 mmol/L (137-145); Total Protein 7.9 g/dL (6.3-8.2)
[2025-07-03 08:46] LABS: Influenza A QL RT-PCR Negative (Negative); Influenza B QL RT-PCR Negative (Negative); RSV RNA, RT-PCR Negative (Negative); SARS-CoV-2 RNA PCR Negative (Negative)
[2025-07-03 09:10] LABS: Add Urine Microscopic? YES; Appearance Urine Cloudy (Clear); Glucose Urine UA Negative (Negative); Leukocyte Esterase Ur Trace LEU/UL (Negative); Nitrate Urine Negative (Negative); Non Pathogenic Casts 0-2; Specific Grav Ur 1.017 (1.001-1.035)
[2025-07-03] MEDS: SODIUM CHLORIDE 0.9% IV 500 ML 999 ML IV CONT (10:03)
--- NOTE | 2025-07-03 10:07 | ED.WEAKNESS ---
HPI - Weakness General Chief complaint: Upper Respiratory Infection <Nereyda Mittal PA-C - Last Filed: 07/03/25 19:12> Stated complaint: cough, weak <Nereyda Mittal PA-C - Last Filed: 07/03/25 19:12> Time Seen by Provider: 07/03/25 09:10 <Nereyda Mittal PA-C - Last Filed: 07/03/25 19:12> Source: patient and family <Nereyda Mittal PA-C - Last Filed: 07/03/25 19:12> Mode of arrival: wheelchair <Nereyda Mittal PA-C - Last Filed: 07/03/25 19:12> Limitations: no limitations <EDITH Ram Last Filed: 07/03/25 19:12> History of Present Illness HPI Narrative: This is a 85 year old female that presents to the ER for generalized weakness. Son reports she has been weak, not able to get around, not eating. Reports subjective fever, a cough. Patient does not have any complaints. <Nereyda Mittal PA-C - Last Filed: 07/03/25 19:12> Related Data Home medications: Home Medications ?Medication ?Instructions ?Recorded ?Confirmed ?Last Taken ?Type melatonin 10 mg capsule 10 mg PO HS 07/03/25 07/03/25 07/02/25 History <Nereyda Mittal PA-C - Last Filed: 07/03/25 19:12> Allergies/Adverse reactions: Allergies Allergy/AdvReac Type Severity Reaction Status Date / Time latex Allergy Rash Verified 07/03/25 14:57 <Nereyda Mittal PA-C - Last Filed: 07/03/25 19:12> Review of Systems Review of Systems: All systems reviewed & are unremarkable except as noted in HPI and below <Nereyda Mittal PA-C - Last Filed: 07/03/25 19:12> [facility] Past Medical History Medical History: Medical History History of COPD <Nereyda Mittal PA-C - Last Filed: 07/03/25 19:12> Family History Family History: Family History (Updated 07/03/25 @ 14:47 by Sandie Terrell RN) Mother Alcoholic <Nereyda Mittal PA-C - Last Filed: 07/03/25 19:12> Social History Social History: Social History Smoking status: Former smoker Tobacco type: cigarettes Second hand tobacco smoke exposure: No Smoking end date: 07/28/14 Alcohol intake: former Substance use: never Substance use type: does not use Do You Feel Safe in your Home?: Yes Lack of Transportation: No Lack of Food: Never True Current Housing: I Have Housing Concerned About Future Housing: No Difficulty Paying Gas/Electric Bills: No Difficulty Paying for Meds: No Currently Unemployed: No Education: High School Diploma/GED Difficulty w/ Childcare or Family Care: No Spiritual care concerns: No <Nereyda Mittal PA-C - Last Filed: 07/03/25 19:12> Exam Narrative: GENERAL: Well-appearing, well-nourished, and in no acute distress. HEAD: Normocephalic, atraumatic. EYES: PERRLA and EOMI. ENT: Nares clear, no rhinorrhea or epistaxis. Mucous membranes moist. Oropharynx without tonsillar hypertrophy exudate or other lesions. Bilateral TMs pearly bradford non-bulging NECK: Supple. No adenopathy or masses. CHEST: Clear to auscultation. No respiratory distress. No wheezes rales or rhonchi HEART: Regular rate and rhythm. No murmur heard. Normal peripheral pulses. ABDOMEN: Soft, nontender, nondistended, normal active bowel sounds. EXTREMITIES: Normal range of motion. No edema. Strength equal in bilateral upper and lower extremities (4/5) SKIN: Warm, dry, no rash. NEURO: No focal deficits. Alert and oriented x3. CN II-XII grossly intact PSYCH: Normal mood and affect <Nereyda Mittal PA-C - Last Filed: 07/03/25 19:12> Course SALES REPRESENTATIVE [employer] Physician Supervision I was available for consultation while this patient was in the emergency department but otherwise did not personally examine them and was not directly involved in their care. Chart is reviewed asynchronously. <Abbie Valdez MD - Last Filed: 07/03/25 20:55> Vital Signs Vital signs: Vital Signs Temperature 97.9 F 07/03/25 07:46 Pulse Rate 87 07/03/25 07:46 Respiratory Rate 20 07/03/25 07:46 Blood Pressure 140/110 H 07/03/25 07:46 Pulse Oximetry 94 07/03/25 07:46 Oxygen Delivery Room Air 07/03/25 07:46 Temperature 97.9 F 07/03/25 07:46 Pulse Rate 79 07/03/25 13:45 Respiratory Rate 14 07/03/25 13:45 Blood Pressure 159/90 H 07/03/25 12:30 Pulse Oximetry 95 07/03/25 12:30 Oxygen Delivery Room Air 07/03/25 07:46 <Nereyda Mittal PA-C - Last Filed: 07/03/25 19:12> Vital Signs Temperature 97.9 F 07/03/25 07:46 Pulse Rate 87 07/03/25 07:46 Respiratory Rate 20 07/03/25 07:46 Blood Pressure 140/110 H 07/03/25 07:46 Pulse Oximetry 94 07/03/25 07:46 Oxygen Delivery Room Air 07/03/25 07:46 Temperature 97.9 F 07/03/25 07:46 Pulse Rate 79 07/03/25 13:45 Respiratory Rate 14 07/03/25 13:45 Blood Pressure 159/90 H 07/03/25 12:30 Pulse Oximetry 95 07/03/25 12:30 Oxygen Delivery Room Air 07/03/25 07:46 <Abbie Valdez MD - Last Filed: 07/03/25 20:55> MDM - Weakness MDM Narrative Medical decision making narrative: Patient presents to the emergency department for generalized weakness. Patient not able to get around, not wanting to eat. Family member endorsing a cough. She is afebrile and nontoxic appearing. Her vitals are stable. Cbc without leukocytosis. Metabolic panel with mild elevation in creatinine to 1.1. Urine with trace leuk esterase, 4+ bacteria, no white blood cells. Will send for culture. Influenza, RSV and COVID screens are negative. Chest x-ray without acute cardiopulmonary abnormality. CT brain without acute findings. CT chest obtained for further evaluation. No acute findings. Family concerned for her safety at home. Hospitalist accepts admission for PT/OT evaluation. <Nereyda Mittal PA-C - Last Filed: 07/03/25 19:12> Differential Diagnosis Differential diagnosis: Likely dehydration and other (Infection, electrolyte derangement, pneumonia, UTI, dementia) <Nereyda Mittal PA-C - Last Filed: 07/03/25 19:12> Lab Data Attestation: I reviewed the patient's lab results. <Nereyda Mittal PA-C - Last Filed: 07/03/25 19:12> Result diagrams: 07/03/25 08:04 07/03/25 08:04 <Nereyda Mittal PA-C - Last Filed: 07/03/25 19:12> Labs: Lab Results 07/03/25 07/03/25 Range/Units 08:04 08:59 WBC 5.8 (4.5-10.0) K/mm3 RBC 5.11 (4.2-5.4) M/mm3 Hgb 14.6 (12.0-15.0) g/dL Hct 44.8 (37.0-47.0) % MCV 87.7 (80-100) fl MCH 28.6 (26-34) pg MCHC 32.6 (32-36) g/dl RDW 13.2 (11.5-14.5) % Plt Count 160 (150-375) k/mm3 MPV 9.2 (7.4-10.4) fl Immature Gran % (Auto) 0.3 (0-0.5) % Neut % (Auto) 69.2 (45.5-73.1) % Lymph % (Auto) 16.0 L (18.3-44.2) % [place] % (Auto) 7.5 (2.6-8.5) % Eos % (Auto) 6.1 H (0-4.4) % Baso % (Auto) 0.9 (0.2-1.2) % Lymph # (Auto) 0.92 (0.9-3.2) K/mm3 [place] # (Auto) 0.4 (0.1-0.6) K/mm3 Eos # (Auto) 0.4 H (0-0.3) K/mm3 Baso # (Auto) 0.1 (0.0-0.1) K/mm3 Abs Immat Gran (auto) 0.02 (0.00-0.031) K/mm3 Absolute Neuts (auto) 4.0 (1.3-6.7) K/mm3 Absolute Nucleated RBC 0.000 (0.0-0.012) K/mm3 Nucleated RBC % 0.0 (0.0-0.2) % Sodium 135 L (137-145) mmol/L Potassium 3.8 (3.4-5.0) mmol/L Chloride 99 (98-107) mmol/L Carbon Dioxide 29 (22-30) mmol/L Anion Gap 7 (4-12) mmol/L BUN 11 (7-17) mg/dL Creatinine 1.10 H (0.7-1.0) mg/dL Estim Creat Clear Calc 28 ml/min Estimated GFR 47 L (59 - ) Glucose 97 (65-110) mg/dL Calcium 10.1 (8.4-10.2) mg/dL Total Bilirubin 1.1 (0.2-1.3) mg/dL AST 30 (14-36) U/L ALT 14 (6-35) U/L Alkaline Phosphatase 84 (38-126) U/L Total Protein 7.9 (6.3-8.2) g/dL Albumin 4.0 (3.5-5.1) g/dL Urine Color Yellow (Yellow) Urine Appearance Cloudy H (Clear) Urine pH 6.0 (5.0-9.0) Ur Specific [place] 1.017 (1.001-1.035) Urine Protein Negative (Negative) mg/dL Urine Glucose (UA) Negative (Negative) mg/dL Urine Ketones Trace H (Negative) mg/dL Ur Blood (Man) Negative (Negative) Urine Nitrate Negative (Negative) Urine Bilirubin Negative (Negative) Urine Urobilinogen 0.2 (<2.0) mg/dL Leukocyte Esterase Rfl Trace H (Negative) TOMY/UL Urine RBC 3-5 H (0-2) /hpf Urine WBC 0-5 (0-3) /hpf Ur Squamous Epith Cells None seen (Few) /hpf Urine Bacteria 4+ H /hpf Urine Casts 0-2 Influenza A (RT-PCR) Negative (Negative) Influenza B (RT-PCR) Negative (Negative) RSV (RT-PCR) Negative (Negative) SARS-CoV-2 RNA (RT-PCR) Negative (Negative) <Nereyda Mittal PA-C - Last Filed: 07/03/25 19:12> Lab Results 07/03/25 07/03/25 Range/Units 08:04 08:59 WBC 5.8 (4.5-10.0) K/mm3 RBC 5.11 (4.2-5.4) M/mm3 Hgb 14.6 (12.0-15.0) g/dL Hct 44.8 (37.0-47.0) % MCV 87.7 (80-100) fl MCH 28.6 (26-34) pg MCHC 32.6 (32-36) g/dl RDW 13.2 (11.5-14.5) % Plt Count 160 (150-375) k/mm3 MPV 9.2 (7.4-10.4) fl Immature Gran % (Auto) 0.3 (0-0.5) % Neut % (Auto) 69.2 (45.5-73.1) % Lymph % (Auto) 16.0 L (18.3-44.2) % [place] % (Auto) 7.5 (2.6-8.5) % Eos % (Auto) 6.1 H (0-4.4) % Baso % (Auto) 0.9 (0.2-1.2) % Lymph # (Auto) 0.92 (0.9-3.2) K/mm3 [place] # (Auto) 0.4 (0.1-0.6) K/mm3 Eos # (Auto) 0.4 H (0-0.3) K/mm3 Baso # (Auto) 0.1 (0.0-0.1) K/mm3 Abs Immat Gran (auto) 0.02 (0.00-0.031) K/mm3 Absolute Neuts (auto) 4.0 (1.3-6.7) K/mm3 Absolute Nucleated RBC 0.000 (0.0-0.012) K/mm3 Nucleated RBC % 0.0 (0.0-0.2) % Sodium 135 L (137-145) mmol/L Potassium 3.8 (3.4-5.0) mmol/L Chloride 99 (98-107) mmol/L Carbon Dioxide 29 (22-30) mmol/L Anion Gap 7 (4-12) mmol/L BUN 11 (7-17) mg/dL Creatinine 1.10 H (0.7-1.0) mg/dL Estim Creat Clear Calc 28 ml/min Estimated GFR 47 L (59 - ) Glucose 97 (65-110) mg/dL Calcium 10.1 (8.4-10.2) mg/dL Total Bilirubin 1.1 (0.2-1.3) mg/dL AST 30 (14-36) U/L ALT 14 (6-35) U/L Alkaline Phosphatase 84 (38-126) U/L Total Protein 7.9 (6.3-8.2) g/dL Albumin 4.0 (3.5-5.1) g/dL Urine Color Yellow (Yellow) Urine Appearance Cloudy H (Clear) Urine pH 6.0 (5.0-9.0) Ur Specific [place] 1.017 (1.001-1.035) Urine Protein Negative (Negative) mg/dL Urine Glucose (UA) Negative (Negative) mg/dL Urine Ketones Trace H (Negative) mg/dL Ur Blood (Man) Negative (Negative) Urine Nitrate Negative (Negative) Urine Bilirubin Negative (Negative) Urine Urobilinogen 0.2 (<2.0) mg/dL Leukocyte Esterase Rfl Trace H (Negative) TOMY/UL Urine RBC 3-5 H (0-2) /hpf Urine WBC 0-5 (0-3) /hpf Ur Squamous Epith Cells None seen (Few) /hpf Urine Bacteria 4+ H /hpf Urine Casts 0-2 Influenza A (RT-PCR) Negative (Negative) Influenza B (RT-PCR) Negative (Negative) RSV (RT-PCR) Negative (Negative) SARS-CoV-2 RNA (RT-PCR) Negative (Negative) <Abbie Valdez MD - Last Filed: 07/03/25 20:55> Imaging Data Radiologist's impression: ITS Impressions Chest X-Ray 07/03/25 09:09 Impression: No acute cardiopulmonary abnormality. Head CT 07/03/25 10:56 Impression: 1.No acute intracranial abnormality. Chest CT 07/03/25 11:32 IMPRESSION: No acute findings. Chronic appearing findings as above. <Nereyda Mittal PA-C - Last Filed: 07/03/25 19:12> Critical Care Time Critical Care Time Critical Care Time: No <Nereyda Mittal PA-C - Last Filed: 07/03/25 19:12> Discharge Plan Discharge Clinical Impression: Gait instability, Adult failure to thrive <Nereyda Mittal PA-C - Last Filed: 07/03/25 19:12> Patient Disposition: Still a Patient <EDITH Ram Last Filed: 07/03/25 19:12> Condition: Stable <Nereyda Mittal PA-C - Last Filed: 07/03/25 19:12>
--- NOTE | 2025-07-03 12:47 | PM.IMHP ---
H&P: HPI History of Present Illness Date/Time: 07/03/25 12:47 Chief Complaint: Weakness Narrative: A 5-year-old female with past medical history of AFib, dementia, COPD presents to the ED on 07/03/2025 with her family with complaints of increased weakness at home over the past 2 days. Patient lives at home with her son and [id number]. Son states the patient is normally able to ambulate around the home with a cane but has been requiring a wheelchair over the past couple days. He further reports a cough and states the patient felt like she had a fever yesterday. Patient herself has no complaints. No complaints of chest pain, dyspnea, nausea, vomiting. No falls. The family is inquiring about patient going to SNF. Initial vital signs 140/110, 87 heart rate, respirations 20, afebrile and 94% on room air Labs reveal sodium 135, creatinine 1.10, a GFR of 47. UA shows trace ketones, trace leukocyte Estrace, 3-5 red blood cells, 4+ bacteria. Viral panel negative. Head CT with no acute intracranial abnormality. Chest CT with no acute findings. [id number] fibrosing changes. Moderately severe diffuse centrilobular emphysematous changes. Review of Systems Review of Systems: All systems reviewed & are unremarkable except as noted in HPI and below PMFSH Past Medical History Medical History History of COPD Family History Family History (Updated 07/03/25 @ 14:47 by Sandie Terrell RN) Mother Alcoholic Social History Social History Tobacco type: cigarettes Second hand tobacco smoke exposure: No Smoking end date: 07/28/14 Alcohol intake: former Substance use: never Substance use type: does not use Do You Feel Safe in your Home?: Yes Lack of Transportation: No Lack of Food: Never True Current Housing: I Have Housing Concerned About Future Housing: No Difficulty Paying Gas/Electric Bills: No Difficulty Paying for Meds: No Currently Unemployed: No Education: High School Diploma/GED Difficulty w/ Childcare or Family Care: No Spiritual care concerns: No Meds Home Medications and Allergies Home Medications ?Medication ?Instructions ?Recorded ?Confirmed ?Type melatonin 10 mg capsule 10 mg PO HS 07/03/25 07/03/25 History Allergies Allergy/AdvReac Type Severity Reaction Status Date / Time latex Allergy Rash Verified 07/03/25 14:57 Vital Signs Vital Signs - 24 hr 07/03/25 07:46 07/03/25 10:40 Temperature 97.9 F Pulse Rate 87 84 Respiratory Rate 20 14 Blood Pressure 140/110 H Pulse Oximetry 94 96 Oxygen Delivery Room Air H&P: Results Labs Labs: Short CBC 07/03/25 Range/Units 08:04 WBC 5.8 (4.5-10.0) K/mm3 Hgb 14.6 (12.0-15.0) g/dL Hct 44.8 (37.0-47.0) % Plt Count 160 (150-375) k/mm3 [facility] 07/03/25 08:04 Sodium 135 L Potassium 3.8 Chloride 99 Carbon Dioxide 29 BUN 11 Creatinine 1.10 H Glucose 97 Calcium 10.1 Liver Function 07/03/25 Range/Units 08:04 Total Bilirubin 1.1 (0.2-1.3) mg/dL AST 30 (14-36) U/L ALT 14 (6-35) U/L Alkaline Phosphatase 84 (38-126) U/L Albumin 4.0 (3.5-5.1) g/dL Urine 07/03/25 Range/Units 08:59 Urine Color Yellow (Yellow) Urine Appearance Cloudy H (Clear) Urine pH 6.0 (5.0-9.0) Ur Specific [place] 1.017 (1.001-1.035) Urine Protein Negative (Negative) mg/dL Urine Glucose (UA) Negative (Negative) mg/dL Assessment and Plan Assessment and plan (1) General weakness: Code(s): R53.1 - Weakness Status: Acute Assessment and Plan: Patient with a history of dementia presents with her family with complaints of increased weakness at home over the past 2 days. Son reports a cough and states the patient felt like she had a fever yesterday. Head CT with no acute intracranial abnormality. Chest CT with no acute findings. -PT/OT -consult care coordination to assist in rehab facility placement (2) Acute kidney injury: Code(s): N17.9 - Acute kidney failure, unspecified Status: Acute Assessment and Plan: Creatinine 1.1 with GFR 47. Creatinine baseline is 0.6-0.85. -500 mL NS bolus in ED - trend renal function - trend electrolytes, correct as needed (3) Bacteria in urine: Code(s): R82.71 - Bacteriuria Status: Acute Assessment and Plan: UA shows trace ketones, trace leukocyte Estrace, 3-5 red blood cells, 4+ bacteria. Patient is asymptomatic with no leukocytosis or fever. -Macrobid 100 mg q.12 for 5 days as patient is pulling her IV out. -UA culture pending (4) Dementia: Qualifiers: Dementia behavioral or psychological symptom: without behavioral, psychotic, or mood disturbance or anxiety Dementia severity: moderate Dementia type: unspecified type Qualified Code(s): F03.B0 - Unspecified dementia, moderate, without behavioral disturbance, psychotic disturbance, mood disturbance, and anxiety Code(s): F03.90 - Unspecified dementia, unspecified severity, without behavioral disturbance, psychotic disturbance, mood disturbance, and anxiety Status: Chronic Assessment and Plan: Patient with a history of dementia. -Patient required 5 mg of olanzapine in the ED -5 mg olanzapine b.i.d. p.r.n. Plan Diet: Regular GI prophylaxis: NA DVT prophylaxis: SCDs lines/drains: PIV Fluids: 500 mL NS bolus Code status: Do not resuscitate Quality VTE Prophylaxis VTE prophylaxis: mechanical ordered Hospitalist [facility] Advance Care Plan I have confirmed that the patient's Advanced Care Plan is present, code status is documented, or surrogate decision maker is listed in patient medical record.: Yes Medication Reconciliation I have utilized all available resources to obtain, update and review the patients current medications (includes all prescriptions, OTC, herbals, cannabis, and nutritional supplements).: Yes
[2025-07-03] MEDS: OLANZapine ODT DISPERTAB 5 MG PO (14:06)
--- NOTE | 2025-07-03 14:25 | PCOTNOTE ---
Patient in ER at 14:20. Will follow.
--- NOTE | 2025-07-03 14:41 | ADMGEN ---
This patient, Melida Akbar, was admitted to 3 [facility] Surg Room 316-01. Patient/family oriented to hospital policies and general routines including ID bracelet, bed and alarms, visiting hours, pain management, procedures, bathroom and other care routines, personal items, smoking policy, room service/diet, and visiting hours. Information on how to activate the Rapid Response Team has been discussed. Patient/Family are encouraged to report perceived risks to care and to ask questions if they do not understand what they are told or what they should do. Keena got report from Mariam.
--- OUTSIDE RECORDS SUMMARY | 2025-07-03 16:31 | XMS_ITS | Encounter Summary ---
Author Organization [facility] Care Team Providers Care Cash Management Coordinator Name Role Phone Gt Cosme MD Primary Care Provider + Levy Jaquez Primary Care Provide r Parrish Canseco MD Primary Care Provider + Jaime Billy MD Unavailable [phone] Gt Cosme MD Unavailable [phone] Jaime Billy MD Primary Care Provider + Jaime Alex Unavailable [phone] Taina Bunch DO Primary Care Provider [phone] Evelyn Balderrama NP Primary Care Provider Encounter Details Date Type Department Care Team (Latest Contact Info) Description 12/08/2015 Orders Only [facility]INCON[facility] ProviderKennedy MD [address] [place] [id number] Social History Tobacco Use Types Packs/Day Years Used Date Smoking Tobacco: Never Assessed Comments Unknown Sex and Gender Information Value Date Recorded Sex Assigned at Not on file Legal Sex Female 7:57 AM MANAGER [employer]ICENS[employer] Gender Identity Not on file Sexual Orientation [...] COVID: Suspected 09/16/2024 09/16/2024 09/16/2024 11:12 AM MANAGER LICENSING Influenza, adult 09/16/2024 09/16/2024 09/23/2024 3:05 AM MANAGER LICENSING documented as of this encounter Care Teams Cash Management Coordinator Relationship Specialty Start Date End Date Gt Cosme MD [address] [facility] [address] [place] [address] PCP - General 10/13/16 03/21/18 Levy Jaquez PA [address] [place] [id number] PCP - General Family Practice 03/22/18 12/30/18 Parrish Canseco MD [address] [place] [address] PCP - General Internal Medicine 12/31/18 04/01/20 Jaime Billy MD [address] [place] [address] PCP - General Internal Medicine 04/17/23 08/15/24 Taina Bunch DO [address] [address] [place] [id number] PCP - General Family Medicine 08/16/24 09/30/24 Evelyn Balderrama NP [address] [address] [place] [id number] PCP - General Family Medicine 10/01/24 Jaime Billy MD [address] [place] [address] Referring Physician Internal Medicine 04/24/15 04/16/23 Gt Cosme MD [facility] [address] [place] [address] Consulting Physician Gynecologic Oncology 04/17/23 Jaime Alex PA [address] [address] [place] [id number] Physician Resource Efficiency Manager Orthopedic Surgery 04/17/23 documented as of this encounter
--- OUTSIDE RECORDS SUMMARY | 2025-07-03 16:31 | XMS_ITS | Clinical Summary ---
Author Organization [facility] Address [address] [place] [address] Care Team Providers Care Invoicing Machine Operator Name Role Phone Gt Cosme MD Unavailable [phone] Jaime Alex Unavailable Evelyn Balderrama NP Primary Care Provider Allergies Active Allergy Reactions Criticality Noted Date Comments Latex Itching,Rash Medium 03/10/2016 Medications calcium carbonate-vitam in D3 400-133.3 mg-unit tablet Activ e ascorbic acid (VITAMIN C) 500 mg tablet,chewable Acti ve cholecalciferol (VITAMIN D-3) 2,000 unit tablet Active donepeziL (ARICEPT) 5 mg tablet Take 1 tablet (5 mg total) by mouth daily 30 tablet 5 Active Additional Information Patient not taking.Reported on 05/12/2025 donepeziL (ARICEPT) 10 mg tablet Take 1 tablet (10 mg total) by mouth nightly 30 tablet 5 5 10/21/19 26 Active Additional Information Patient not taking.Reported on 05/12/2025 levoFLOXacin (LEVAQUIN) 750 mg tablet Take 1 tablet (750 mg total) by mouth 4 Active Active Problems Problem Noted Date Diagnosed Date Acute renal failure 05/12/2025 Acute UTI 05/12/2025 New onset a-fib 05/12/2025 Severe sepsis 05/12/2025 Medicare annual wellness visit, subsequent 02/25 Assessment & Plan (02/25/2025 4:36 PM CDT): We discussed a comprehensive list of medical conditions and proposed recommendations for each. We discussed the importance of increased exercise, fall prevention, proper nutrition, and suggested joining [facility] to accomplish most of these goals. Patient was given an age appropriate Medicare preventive services checklist. Please see the EMR regarding details of their health risk assessment and preventive services checklist. Low vitamin B12 level 02/25/2025 Assessment & Plan (02/25/2025 4:36 PM CDT): Lab Results Component Value Date VITB12 769 02/25/2025 -chronic, controlled -currently takes does not require supplement -most recent vitamin B12 level noted above -Will recheck lab value -continue current treatment plan Orders: Vitamin B12; Future Body mass index (BMI) of 22.0 to 22.9 in adult 0 10/01/2024 Assessment & Plan (02/25/2025 4:36 PM CDT): Wt Readings from Last 3 Encounters: 02/25/25 56.9 kg (125 lb 8 oz) 10/01/24 56.4 kg (124 lb 4.8 oz) 09/26/24 56.2 kg (123 lb 12.8 oz) Body mass index is 22.24 kg/m . -Stable, at goal of <30 bmi -Discussed recommendations for exercise at least 30 minutes moderate to vigorous exercise as tolerated most days of the week. (minimum 150 minutes weekly) -Discussed importance of well-balanced diet Assessment & Plan (10/01/2024 9:08 AM EDGER MACHINE SETTER): Wt Readings from Last 3 Encounters: 10/01/24 [...] minutes weekly) -Discussed importance of well-balanced diet Influenza A 09/26/2024 Sleep disturbance 09/26/2024 Assessment & Plan (02/25/2025 4:36 PM CDT): -chronic, improve -Likely associated with moderate late onset dementia -Currently takes [id number] melatonin nightly -Patient's family member endorses adequate relief with current regimen -Continue current treatment plan Assessment & Plan (10/01/2024 12:30 PM EDGER MACHINE SETTER): -New complaint -Likely associated with moderate late onset dementia -Recommendations for OTC melatonin nightly -Continue current treatment plan Frailty 08/16/2024 Assessment & Plan (08/17/2024 1:20 PM EDGER MACHINE SETTER): Encouraged patient ask for help when needed, be careful around the house when ambulating. Use cane in the home if needed for stability. 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, psychotic disturbance, mood disturbance, or anxiety 08/16/2024 Assessment & Plan (02/25/2025 4:36 PM CDT): -Chronic, controlled -Patient was recently diagnosed with moderate late onset dementia via slums screening at recent visit -Patient currently does not take medication for this -Currently lives with son -Patient will be establishing care with Neurology in a few weeks -Continue current treatment plan Orders: CBC with auto differential; Future Comprehensive metabolic panel; Future Assessment & Plan (10/01/2024 12:29 PM EDGER MACHINE SETTER): -Recent diagnosis -Patient was recently diagnosed with moderate late onset dementia via slums screening at recent visit -Patient currently does not take medication for this -Currently lives with son and has been experiencing sleep disturbance -Recommendation for OTC melatonin nightly -Referral to neurology placed for expert evaluation -Continue current treatment plan Assessment & Plan (08/17/2024 1:21 PM EDGER MACHINE SETTER): Patient's scored poorly on a slums exam. Strongly encouraged patient to ask for help when needed at home. She currently lives with her son. General weakness 08/16/2024 Assessment & Plan (08/17/2024 1:21 PM EDGER MACHINE SETTER): Home physical therapy ordered for further evaluation and treatment. Gait abnormality 08/16/2024 Assessment & Plan (02/25/2025 4:36 PM CDT): -Chronic, controlled -Currently utilizing wheelchair for long distances -Patient denies any recent falls -Continue current treatment plan Assessment & Plan (10/01/2024 12:35 PM EDGER MACHINE SETTER): -Recent diagnosis not significantly improved -Patient recently was diagnosed with pneumonia, flu a, UTI which has left the patient physically deconditioned -Currently utilizing wheelchair for long distances -Referral for home health with PT/OT and wound care ordered -Continue current treatment plan Assessment & Plan (08/17/2024 1:22 PM EDGER MACHINE SETTER): Home PT ordered further evaluation and treatment. Multifocal pneumonia 08/16/2024 Assessment & Plan (08/17/2024 1:22 PM EDGER MACHINE SETTER): Clinically improved, chest x-ray ordered, will follow. History of ovarian cancer 04/10/2019 Assessment & Plan (10/01/2024 12:28 PM EDGER MACHINE SETTER): -In remission -Follows for annual surveillance with specialists -Continue current treatment plan Chronic obstructive pulmonary disease 04/04/2018 Assessment & Plan (02/25/2025 4:36 PM CDT): -Chronic, controlled -Currently does not require medication for this -Associated with previous tobacco use -Continue current treatment plan Assessment & Plan (11/19/2019 1:40 PM CDT): Patient has mild COPD. She was advised to quit smoking. Continue with p.r.n. albuterol inhaler. Cigarette nicotine dependence in remission 02/26 Assessment & Plan (02/25/2025 4:36 PM CDT): Tobacco Use: Medium Risk (02/25/2025) Patient History Smoking Tobacco Use: Former Smokeless Tobacco Use: Never Passive Exposure: Not on file -stable, at goal -patient reports smoking cessation -patient educated on benefits of continued smoking cessation -total time spent on tobacco cessation education 3 minutes Assessment & Plan (10/01/2024 9:08 AM EDGER MACHINE SETTER): Tobacco Use: Medium Risk (10/01/2024) Patient History [...] current pathological fracture 05/24/2017 Assessment & Plan (02/25/2025 4:36 PM CDT): -chronic, controlled -last DEXA bone scan was in 2024 -currently takes prolia injections -managed by orthopedics -encourage patient to continue weight-bearing exercises and vitamin-D/calcium supplement -continue current treatment plan Assessment & Plan (10/01/2024 9:10 AM EDGER MACHINE SETTER): -chronic, controlled -last DEXA bone scan was in 2022; will repeat dexa bone scan -currently takes prolia infections -managed by orthopedics -encourage patient to continue weight-bearing exercises and vitamin-D/calcium supplement -continue current treatment plan Assessment & Plan (08/17/2024 1:20 PM EDGER MACHINE SETTER): Patient currently is followed by another provider for her osteoporosis. Vitamin- D ordered. 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 [address] [place] [address] Charlene Jordan, GONZALO 05/14/2025 Telephone [facility] Gynecology [address] [facility] [address] [place] [address] Debbie Britt RN 05/12/2025 1:30 PM CDT Office Visit [facility] [address] [facility] [facility] [address] [place] [address] Bere Morrow NP Encounter for routine cancer follow-up (Primary Dx); Malignant neoplasm of right ovary from Last 3 Months Immunizations Immunization Administration [...] Smoking Tobacco: Former Cigarettes 0.5 60 1 344 - 2014 Smokeless Tobacco: Never Tobacco Cessation:Counseling Given: Not Answered Alcohol Use Standard Drinks/Week Comments No 0 (1 standard drink = 0.6 oz pur e alcohol) AUDIT-C Answer Date Recorded Q1: How often do you have a drink containing alcohol? Never 02/25/2025 Q2: How many drinks containi ng alcohol do you have on a typical day when you are drinking? Patient does not drink Q3: How often do you have si x or more drinks on one occasion? Never 02/25/2025 PHQ-2 Answer Date Recorded PHQ-2 Total Score (If total score is 3 or more points, staff should administer the PHQ-9) 0 02/25/2025 Comments No Sex and Gender Information Value Date Recorded Sex Assigned at Not on file Legal Sex Female 7:57 AM EDGER MACHINE SETTER Gender Identity Not on file Sexual Orientation [...] Sign Reading Time Taken Comments Blood Pressure 135/80 05/12/2025 1:28 PM CDT Pulse 88 05/12/2025 1:28 PM CDT Temperature 36.4 C (97.6 F) 05/12/2025 1:28 PM CDT Respiratory Rate 16 05/12/2025 1:28 PM CDT Oxygen Saturation 96% 05/12/2025 1:28 PM CDT Inhaled Oxygen Concentration - - Weight 55.7 kg (122 lb 14.4 oz) 05/12/2025 1:28 PM CDT Height 160 cm (5' 2.99) 05/12/2025 1:28 PM CDT Body Mass Index 21.78 05/12/2025 1:28 PM CDT Plan of Treatment Health Maintenance Due Date Last Done Comments Hepatitis B Screening 1958 Pneumococcal vaccine 65+ (1 of 2 - PCV) 1959 Covid-19 Vaccine (2024-2 6 season) 2025 08/14/2021, 10/22/2020, 09/30/2020 Influenza Vaccine (#1) 2025 05/16/2013 Depression Screening 02/25/2026 02/25/2025, 10/01/2024, 08/16/2024 Fall Risk Assessment 02/25/2026 02/25/2025, 10/01/2024, 09/26/2024 Well Visit 65+ 02/25/2026 02/25/2025, 02/25/2025 Osteoporosis Screening-Bone Density Scan 01/31/2027 01/31/2025, 09/12/2022, 05/31/2017, Additional history exists DTaP/Tdap/Td Vaccine Discontinued 07/08/2014, 07/08/20 14 Zoster Vaccine Discontinued Procedures Procedure Name Priority Date/Time Associated Diagnosis Comments DEXA AXIAL SKELETON BONE DENSITY 1 OR MORE SITES Schedule Routine, Read Routine (OP Routine) 01/31/2025 1:28 PM CDT Osteoporosis screening Postmenopausal from Last 3 Months or Most Recently Relevant to Health Maintenance Results * Dexa Axial Skeleton Bone Density 1 or 2 Site (01/31/2025 1:28 PM CDT) Anatomical Region Laterality Modality Body N/A Mammography 02/02/2025 10:3 7 AM CDT Narrative 02/03/2025 3:38 PM CDT EXAM DESCRIPTION: DEXA AXIAL SKELETON BONE DENSITY 1 OR MORE SITES REASON FOR STUDY: 84 y/o year old F with given history of: Osteoporosis Screening Development Coordinator/Model: [employer] A (S/N [id number]) Facility LSC value of 0.022 for the AP spine, 0.027 for the femur, and 0.023 for the forearm. CLINICAL INFORMATION: Current height: 62.5 inches Maximum height: 66 inches Weight: 124 pounds Risk factors: Postmenopausal, adult fracture, parental hip fracture, smoking history COMPARISON: 09/12/2022 FINDINGS: AP LUMBAR SPINE L1-L4: Total BMD is 0.932 g/cm2 T-score is -1.0 This is decreased in comparison to prior exam which is statistically significant. LEFT forearm: 33% radius BMD is 0.579 g/cm2 T-score is -1.9 This is increased in comparison to prior exam which is not statistically significant. FRAX: FRAX tool cannot be utilized as T-Score for mandatory regions required to calculate FRAX is unavailable. IMPRESSION: Low Bone Mass. REFERENCE: Bone mineral density: T-Score: Normal (T-score above or = -1.0) Low bone mass (T-score between -1.0 and -2.5) replaces the previously used term osteopenia Osteoporosis (T-score = or below -2.5) Z-Score: Within the expected range for age (Z-score above -2.0) Below the expected range for age (Z-score is -2.0 or below) Please see below follow up recommendations. Medical evaluation for secondary causes of low [...] greater than 3% should be considered for pharmacological treatment for the prevention of osteoporosis. For further information, including treatment recommendations, please refer to the 2019 ISCD Official Positions (http://www.iscd.org) and the NOF's Clinician's Guide to Prevention and Treatment of Osteoporosis (http://www.nof.org/professionals/clinical-guidelines) THIS IS AN ELECTRONICALLY VERIFIED FINAL REPORT 02/03/2025 3:38 PM - Electronically signed by Jaime Davison M.D. MF: [email or web address] Report ID: [id number] Reading Location: [place] [address] Procedure Note Jaime Davison MD - 02/03/2025 EXAM DESCRIPTION: DEXA AXIAL SKELETON BONE DENSITY 1 OR MORE SITES REASON FOR STUDY: 84 y/o year old F with given history of:Osteoporosis Screening Development Coordinator/Model: Friday A (S/N [id number]) Facility LSC value of 0.022 for the AP spine, 0.027 for the femur, and0.023 for the forearm. CLINICAL INFORMATION: Current height: 62.5 inches Maximum height: 66 inches Weight: 124 pounds Risk factors: Postmenopausal, adult fracture, parental hip fracture,smoking history COMPARISON: 09/12/2022 FINDINGS: AP LUMBAR SPINE L1-L4: Total BMD is 0.932 g/cm2 T-score is -1.0 This is decreased in comparison to prior exam which is statistically significant. LEFT forearm: 33% radius BMD is 0.579 g/cm2 T-score is -1.9 This is increased in comparison to prior exam which is not statistically significant. FRAX: FRAX tool cannot be utilized as T-Score for mandatory regions required to calculate FRAX is unavailable. IMPRESSION: Low Bone Mass. REFERENCE: Bone mineral density: T-Score: Normal (T-score above or = -1.0) Low bone mass (T-score between -1.0 and -2.5) replaces thepreviously used term osteopenia Osteoporosis (T-score = or below -2.5) Z-Score: Within the expected range for age (Z-score above -2.0) Below the expected range for age (Z-score is -2.0 or below) Please see below follow up recommendations. Medical evaluation forsecondary causes of low bone mineral density may [...] or greaterthan 3% should be considered for pharmacological treatment for the preventionof osteoporosis. For further information, including treatment recommendations, please referto the 2019 ISCD Official Positions (http://www.iscd.org) and the NOF's Clinician's Guide to Prevention and Treatment of Osteoporosis (http://www.nof.org/professionals/clinical-guidelines) THIS IS AN ELECTRONICALLY VERIFIED FINAL REPORT 02/03/2025 3:38 PM - Electronically signed by Jaime Davison M.D. MF: [email or web address] Report ID: [id number] Reading Location: [place] [address] Evelyn Balderrama NP IMG DXA PROCEDURES Marilyn l Result from Last 3 Months or Most Recently Relevant to Health Maintenance Insurance MEDICARE IDPA MEDICARE IDPA MEDICARE IDPA Care Teams Invoicing Machine Operator Relationship Specialty Start Date End Date Evelyn Balderrama NP [address] [place] [address] PCP - General Family Medicine 10/01/24 Gt Cosme MD [facility] [address] [place] [address] Consulting Physician Gynecologic Oncology 04/17/23 Jaime Alex PA [address] [place] [address] Physician Photonics Engineer Orthopedic Surgery 04/17/23
--- OUTSIDE RECORDS SUMMARY | 2025-07-03 16:31 | XMS_ITS | Patient Health Record ---
Author Organization [facility] Address [address] [facility] [address] [place], [place] [id number] Care Team Providers Care Assembler Trim Name Role Phone HEIDE NARANJO Unavailable [phone] Evelyn Balderrama Unavailable Unavailable HEIDE SUAREZ Unavailable [phone] Allergies Allergen (clinical drug ingredient) Drug/Non Drug Allergy documented on EMR Reaction Allergy Type Onset Date Status Latex Latex Unknown Allergy Active Reason For Referral No Information Vital Signs Weight-kg 54.43 kg 05/05/2025 Weight 120 lbs 05/05/2025 Encounters Encounter Location Date Provider Diagnosis [facility] [address] [place] [id number] 11/04/2024 HEIDE SNOOK Tinea unguium B35.1 ; Pain in right toe(s) M79.674 ; Pain in left toe(s) M79.675 and Atherosclerosis 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, bilateral legs I70.213 [facility] [place] [address] [place] [address] [id number] 05/05/2025 HEIDE SNOOK Tinea unguium B35.1 ; Pain in right foot M79.671 ; Pain in left foot M79.672 ; Atherosclerosis 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, bilateral legs I70.213 and Acquired keratosis [keratoderma] palmaris et plantaris L85.1 [facility] [place] [address] [place] [address] [id number] 02/03/2025 HEIDE SNOOK Tinea unguium B35.1 ; Pain in right foot M79.671 ; Pain in left foot M79.672 ; Atherosclerosis 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, bilateral [...] Pain in right toe(s) (ICD-10 - M79.674) 02/03/2025 Tinea unguium (ICD-10 - B35.1) Nails 1-5 Bilateral were debrided extensively with nail nippers and emery board, reducing length and girth to pink healthy tissue with any subungual debris and necrotic tissue removed 02/03/2025 Pain in right foot (ICD-10 - M79.671) 05/05/2025 Tinea unguium (ICD-10 - B35.1) Nails 1-5 Bilateral were debrided extensively with nail nippers and emery board, reducing length and girth to pink healthy tissue with any subungual debris and necrotic tissue removed 05/05/2025 Pain in right foot (ICD-10 - M79.671) 05/05/2025 Pain in left foot (ICD-10 - M79.672) 02/03/2025 Pain in left foot (ICD-10 - M79.672) 11/04/2024 Pain in left toe(s) (ICD-10 - M79.675) 11/04/2024 Atherosclerosis 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, bilateral legs (ICD-10 - I70.213) 02/03/2025 Atherosclerosis 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, bilateral legs (ICD-10 - I70.213) 05/05/2025 Atherosclerosis 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, bilateral legs (ICD-10 - I70.213) 05/05/2025 Acquired keratosis [keratoderma] palmaris et plantaris (ICD-10 - L85.1) A total of 2 corns or calluses, as described in the note above, were cut and pared utilizing a #15 blade 02/03/2025 Acquired keratosis [keratoderma] palmaris et plantaris (ICD-10 - L85.1) A total of 2 corns or calluses, as described in the note above, were cut and pared utilizing a #15 blade Plan Of Treatment Next Appt Details Provider Name:HEIDE NARANJO, 01:00:00 PM, [address], [facility], [place], [place], [id number], Insurance Providers Payer Name Payer Address Payer Phone Subscriber Number Group Number Insured Name Patient Relationship to Insured Coverage Start Date Coverage End Date Medicare Part B [facility] [address] [place] [phone] [id number] Melida Akbar Self - patient is the insured 6
--- OUTSIDE RECORDS SUMMARY | 2025-07-03 16:31 | XMS_ITS | Encounter Summary ---
Author Organization [facility] Healthcare Address [address] [place] [address] Care Team Providers Care Psychiatric Tech Name Role Phone Gt Cosme MD Unavailable Jaime Alex Unavailable [phone] Evelyn Balderrama NP Primary Care Provider Encounter Details Date Type Department Care Team (Late st Contact Info) Description 12/13/2024 Orders Only [facility] Health Information Management [address] [place] [address] Evelyn Balderrama, ENGINEERING SPECIALIST TECHNICIAN [address] [place], [place] [id number] Social History Tobacco Use Types Packs/Day Years [...] on file Legal Sex Female 7:57 AM EDITORIAL INTERN Gender Identity Not on file Sexual Orientation Not on file Occupation Industry Job Start Date Job End Date retired Not on file Not on file Not on file documented as of this encounter Plan of Treatment Not on file documented as of this encounter Procedures Procedure Name Priority Date/Time Associated Diagnosis Comments SCAN - RADIOLOGY/IMAGING 12/13/2024 documented in this encounter Results * SCAN - RADIOLOGY/IMAGING (12/13/2024) Anatomical Region Laterality Modality Other Evelyn Balderrama ENGINEERING SPECIALIST TECHNICIAN Final R esult documented in this encounter Visit Diagnoses Not on filedocumented in this encounter Care Teams Psychiatric Tech Relationship Specialty Start Date End Date Evelyn Balderrama, ENGINEERING SPECIALIST TECHNICIAN [address] [place] [address] PCP - General Family Medicine 10/01/24 Gt Cosme MD [address] [place] [address] Consulting Physician Gynecologic Oncology 04/17/23 Jaime Alex PA [address] [place] [address] Physician Ocular Care Aide Orthopedic Surgery 04/17/23 documented as of this encounter
--- NOTE | 2025-07-03 16:36 | PC.NURSE ---
This nurse let hospitalist Mayra Torres know about pt taking out IV and not having access at this time. Not needed at this time and will reevaluate. Pt confused and oriented times one at this time.
--- OUTSIDE RECORDS SUMMARY | 2025-07-03 18:02 | XMS_ITS | Clinical Summary ---
Author Organization [facility] Address [address] [place] [address] Care Team Providers Care Grouter Helper Name Role Phone Gt Cosme MD Unavailable [phone] Jaime Alex Unavailable [phone] Evelyn Balderrama NP Primary Care Provider Allergies [...] fall prevention, proper nutrition, and suggested joining [facility] to accomplish most of these goals. Patient [...] diet Assessment & Plan (10/01/2024 9:08 AM POULTRY PROCESS WORKER): Wt Readings from Last 3 Encounters: 10/01/24 [...] with moderate late onset dementia -Currently takes ycjf-wmn-lsmrjrp melatonin nightly -Patient's family member endorses adequate relief with current regimen -Continue current treatment plan Assessment & Plan (10/01/2024 12:30 PM POULTRY PROCESS WORKER): -New complaint -Likely associated with moderate late onset dementia -Recommendations for OTC melatonin nightly -Continue current treatment plan Frailty 08/16/2024 Assessment & Plan (08/17/2024 1:20 PM POULTRY PROCESS WORKER): Encouraged patient ask for help when needed, [...] Future Assessment & Plan (10/01/2024 12:29 PM POULTRY PROCESS WORKER): -Recent diagnosis -Patient was recently diagnosed with moderate late onset dementia via slums screening at recent visit -Patient currently does not take medication for this -Currently lives with son and has been experiencing sleep disturbance -Recommendation for OTC melatonin nightly -Referral to neurology placed for expert evaluation -Continue current treatment plan Assessment & Plan (08/17/2024 1:21 PM POULTRY PROCESS WORKER): Patient's scored poorly on a slums exam. Strongly encouraged patient to ask for help when needed at home. She currently lives with her son. General weakness 08/16/2024 Assessment & Plan (08/17/2024 1:21 PM POULTRY PROCESS WORKER): Home physical therapy ordered for further evaluation and treatment. Gait abnormality 08/16/2024 Assessment & Plan (02/25/2025 4:36 PM CDT): -Chronic, controlled -Currently utilizing wheelchair for long distances -Patient denies any recent falls -Continue current treatment plan Assessment & Plan (10/01/2024 12:35 PM POULTRY PROCESS WORKER): -Recent diagnosis not significantly improved -Patient recently was diagnosed with pneumonia, flu a, UTI which has left the patient physically deconditioned -Currently utilizing wheelchair for long distances -Referral for home health with PT/OT and wound care ordered -Continue current treatment plan Assessment & Plan (08/17/2024 1:22 PM POULTRY PROCESS WORKER): Home PT ordered further evaluation and treatment. Multifocal pneumonia 08/16/2024 Assessment & Plan (08/17/2024 1:22 PM POULTRY PROCESS WORKER): Clinically improved, chest x-ray ordered, will follow. History of ovarian cancer 04/10/2019 Assessment & Plan (10/01/2024 12:28 PM POULTRY PROCESS WORKER): -In remission -Follows for annual surveillance with [...] minutes Assessment & Plan (10/01/2024 9:08 AM POULTRY PROCESS WORKER): Tobacco Use: Medium Risk (10/01/2024) Patient History [...] plan Assessment & Plan (10/01/2024 9:10 AM POULTRY PROCESS WORKER): -chronic, controlled -last DEXA bone scan was in 2022; will repeat dexa bone scan -currently takes prolia infections -managed by orthopedics -encourage patient to continue weight-bearing exercises and vitamin-D/calcium supplement -continue current treatment plan Assessment & Plan (08/17/2024 1:20 PM POULTRY PROCESS WORKER): Patient currently is followed by another provider [...] Type Department Care Team Description 05/14/2025 Telephone [facility] Obstetrics and Gynecology [address] [place] [address] Charlene Jordan, GONZALO 05/14/2025 Telephone [facility] Obstetrics and Gynecology [address] [place] [address] Debbie Britt RN 05/12/2025 1:30 PM CDT Office Visit [facility] Ob[facility]etric[facility] Gynecology [address] [place] [address] Bere Morrow NP Encounter for routine cancer [...] Smoking Tobacco: Former Cigarettes 0.5 60 1 744 - 2014 Smokeless Tobacco: Never Tobacco Cessation:Counseling [...] on file Legal Sex Female 7:57 AM POULTRY PROCESS WORKER Gender Identity Not on file Sexual Orientation [...] F with given history of: 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 MF: RONNI Report ID: [id number] Reading Location: [place] [address] Procedure Note Jaime Davison MD - 02/03/2025 EXAM DESCRIPTION: DEXA AXIAL SKELETON BONE DENSITY 1 OR MORE SITES REASON FOR STUDY: 84 y/o year old F with given history of:Osteoporosis Screening Fueler/Model: [employer] A (S/N [id number]) Facility LSC value of 0.022 for the [...] Jaime Davison M.D. MF: RONNI Report ID: [id number] Reading Location: [place] [address] Evelyn Balderrama NP IMG DXA PROCEDURES Marilyn l Result from Last 3 Months or Most Recently Relevant to Health Maintenance Insurance MEDICARE IDPA MEDICARE IDPA MEDICARE [facility] Address: [address] [address] [place] [address] IDPA Care Teams Grouter Helper Relationship Specialty Start Date End Date Evelyn Balderrama NP [address] [place] [address] PCP - General Family Medicine 10/01/24 Gt Cosme MD [facility] [address] [place] [address] Consulting Physician Gynecologic Oncology 04/17/23 Jaime Alex PA [address] [place] [address] Physician Senior Production Supervisor Orthopedic Surgery 04/17/23
--- OUTSIDE RECORDS SUMMARY | 2025-07-03 18:02 | XMS_ITS | Encounter Summary ---
Author Organization [facility] Healthcare Address [address] [place] [address] Care Team Providers Care Rn Camp Name Role Phone Gt Csome MD Unavailable Jaime Alex Unavailable [phone] Evelyn Balderrama NP Primary Care Provider Encounter Details Date Type Department Care Team (Late st Contact Info) Description 12/13/2024 Orders Only [facility] [place] [place] Health Information Management [address] [place] [address] Evelyn Balderrama, MONKEY KEEPER [address] [place], [place] [id number] Social History Tobacco Use Types Packs/Day Years [...] on file Legal Sex Female 7:57 AM ANAESTHESIOLOGIST Gender Identity Not on file Sexual Orientation [...] Anatomical Region Laterality Modality Other Evelyn Balderrama MONKEY KEEPER Final R esult documented in this encounter Visit Diagnoses Not on filedocumented in this encounter Care Teams Rn Camp Relationship Specialty Start Date End Date Evelyn Balderrama, MONKEY KEEPER [address] [place] [address] PCP - General Family Medicine 10/01/24 Gt Cosme MD [address] [place] [address] Consulting Physician Gynecologic Oncology 04/17/23 Jaime Alex PA [address] [place] [address] [place] [address] Physician Equipment Detailer Orthopedic Surgery 04/17/23 documented as of this encounter
--- OUTSIDE RECORDS SUMMARY | 2025-07-03 18:02 | XMS_ITS | Encounter Summary ---
Author Organization [facility] Care Team Providers Care Spray Worker Name Role Phone Gt Cosme MD Primary Care Provider + Levy Jaquez Primary Care Provide r Parrish Canseco MD Primary Care Provider + Jaime Billy MD Unavailable [phone] Gt Cosme MD Unavailable [phone] Jaime Billy MD Primary Care Provider + Jaime Alex Unavailable [phone] Taina Bunch DO Primary Care Provider [phone] Evelyn Balderrama NP Primary Care Provider Encounter Details Date Type Department Care Team (Latest Contact Info) Description 12/08/2015 Orders Only [facility] ProviderKennedy MD [address] [place] [address] Social History Tobacco Use Types Packs/Day Years Used Date Smoking Tobacco: Never Assessed Comments Unknown Sex and Gender Information Value Date Recorded Sex Assigned at Not on file Legal Sex Female 7:57 AM FIREPOT OPERATOR AND TENDER Gender Identity Not on file Sexual Orientation [...] COVID: Suspected 09/16/2024 09/16/2024 09/16/2024 11:12 AM FIREPOT OPERATOR AND TENDER Influenza, adult 09/16/2024 09/16/2024 09/23/2024 3:05 AM FIREPOT OPERATOR AND TENDER documented as of this encounter Care Teams Spray Worker Relationship Specialty Start Date End Date Gt Cosme MD [address] [facility] [address] [place] [address] PCP - General 10/13/16 03/21/18 Levy Jaquez PA [address] [facility] [address] [place] [address] PCP - General Family Practice 03/22/18 12/30/18 Parrish Canseco MD [address] [place] [address] PCP - General Internal Medicine 12/31/18 04/01/20 Jaime Billy MD [address] [place] [address] PCP - General Internal Medicine 04/17/23 08/15/24 Taina Bunch DO [address] [facility] [address] [place] [address] [place] [address] PCP - General Family Medicine 08/16/24 09/30/24 Evelyn Balderrama NP [address] [facility] [address] [place] [place] [address] PCP - General Family Medicine 10/01/24 Jaime Billy MD [address] [place] [address] Referring Physician Internal Medicine 04/24/15 04/16/23 Gt Cosme MD [facility] [address] [place] [address] Consulting Physician Gynecologic Oncology 04/17/23 Jaime Alex PA [address] [facility] [address] [place] [address] Physician Md Allergy Immunology Orthopedic Surgery 04/17/23 documented as of this encounter
[2025-07-03] MEDS: MELATONIN 5 MG TABLET 10 MG PO (20:18)
[2025-07-03] MEDS: NITROFURANTOIN MONOHYD MACROCR 100 MG CAP PO (20:18)
[2025-07-04 04:30] VITALS: BP 158/87; PULSE 99; RESP 18; TEMP 35.8; O2SAT 97
[2025-07-04 06:36] LABS: Hematocrit 40.7 % (37.0-47.0); Hemoglobin 13.6 g/dL (12.0-15.0); Immature Granulocyte Percent A 0.4 % (0-0.5); Immature Platelet Fraction Pct 3.7 % (0.9-11.2); Lymphocytes Absolute Auto 1.52 K/mm3 (0.9-3.2); Mean Corpuscular HGB Conc 33.4 g/dl (32-36); Mean Corpuscular Hemoglobin 29.3 pg (26-34); Mean Corpuscular Volume 87.7 fl (80-100); Nucleated Red Blood Cells Absolute Auto 0.000 K/mm3 (0.0-0.012); Nucleated Red Blood Cells Perc 0.0 % (0.0-0.2); Platelet Count Result 138 k/mm3 (150-375); Red Blood Count 4.64 M/mm3 (4.2-5.4); White Blood Count 5.2 K/mm3 (4.5-10.0)
[2025-07-04 06:57] LABS: Anion Gap 8 mmol/L (4-12); Blood Urea Nitrogen 16 mg/dL (7-17); Calcium 9.7 mg/dL (8.4-10.2); Carbon Dioxide 25 mmol/L (22-30); Chloride 100 mmol/L (98-107); Estimated CRCL calculation 31 ml/min; Estimated Glomerular Filt Rate 52; Glucose 83 mg/dL (65-110); Potassium 3.9 mmol/L (3.4-5.0); Sodium 133 mmol/L (137-145)
[2025-07-04] MEDS: NITROFURANTOIN MONOHYD MACROCR 100 MG CAP PO ×2 (09:12→21:44)
--- NOTE | 2025-07-04 13:01 | PM.IMPN ---
Progress Note: A&P Assessment and Plan (1) General weakness: Code(s): R53.1 - Weakness Status: Acute Assessment and Plan: Patient with a history of dementia presents with her family with complaints of increased weakness at home over the past 2 days. Son reports a cough and states the patient felt like she had a fever yesterday. Head CT with no acute intracranial abnormality. Chest CT with no acute findings. Patient has been improving significantly in feeling better. -PT/OT -consult care coordination to assist in rehab facility placement -spoke with daughter today who agrees with need for rehab (2) Acute renal failure: Qualifiers: Acute renal failure type: unspecified Qualified Code(s): N17.9 - Acute kidney failure, unspecified Code(s): N17.9 - Acute kidney failure, unspecified Status: Acute Assessment and Plan: Creatinine 1.1 with GFR 47. Creatinine baseline is 0.6-0.85. -status post 500 mL NS bolus in ED - trend renal function - trend electrolytes, correct as needed (3) Atrial fibrillation with RVR: Code(s): I48.91 - Unspecified atrial fibrillation Status: Acute Assessment and Plan: Does not appear to be on metoprolol or anticoagulation, EKG is sinus rhythm in the emergency room (4) UTI (urinary tract infection): Qualifiers: Hematuria presence: without hematuria Urinary tract infection type: site unspecified Qualified Code(s): N39.0 - Urinary tract infection, site not specified Code(s): N39.0 - Urinary tract infection, site not specified Status: Acute Assessment and Plan: UA shows trace ketones, trace leukocyte Estrace, 3-5 red blood cells, 4+ bacteria. Patient is asymptomatic with no leukocytosis or fever. Denies urinary symptoms -Macrobid 100 mg q.12 for 5 days as patient is pulling her IV out. -UA culture pending (5) Dementia: Qualifiers: Dementia behavioral or psychological symptom: without behavioral, psychotic, or mood disturbance or anxiety Dementia severity: moderate Dementia type: unspecified type Qualified Code(s): F03.B0 - Unspecified dementia, moderate, without behavioral disturbance, psychotic disturbance, mood disturbance, and anxiety Code(s): F03.90 - Unspecified dementia, unspecified severity, without behavioral disturbance, psychotic disturbance, mood disturbance, and anxiety Status: Chronic Assessment and Plan: History of baseline dementia Olanzapine 5 mg b.i.d. as needed for agitation Frequent reorienting Seen this morning, pleasant and oriented during exam Plan DVT prophylaxis Heart healthy diet Subjective Date/time seen: 07/04/25 13:01 Interval history: An 85-year-old female with past medical history of AFib, dementia, COPD presents to the ED on 07/03/2025 with her family with complaints of increased weakness at home over the past 2 days. Patient lives at home with her son and gdwfwlbc-bq-mck. Son states the patient is normally able to ambulate around the home with a cane but has been requiring a wheelchair over the past couple days. He further reports a cough and states the patient felt like she had a fever yesterday. Patient herself has no complaints. No complaints of chest pain, dyspnea, nausea, vomiting. No falls. The family is inquiring about patient going to SNF. Initial vital signs 140/110, 87 heart rate, respirations 20, afebrile and 94% on room air Labs reveal sodium 135, creatinine 1.10, a GFR of 47. UA shows trace ketones, trace leukocyte Estrace, 3-5 red blood cells, 4+ bacteria. Viral panel negative. Head CT with no acute intracranial abnormality. Chest CT with no acute findings. Berp-kv-zckmqigo fibrosing changes. Moderately severe diffuse centrilobular emphysematous changes. Review of Systems Review of Systems: All systems reviewed & are unremarkable except as noted in HPI and below Exam Narrative: GENERAL: Well-appearing, well-nourished, and in no acute distress. HEAD: Normocephalic, atraumatic. EYES: PERRLA and EOMI. ENT: Nares clear, no rhinorrhea or epistaxis. Mucous membranes moist. Oropharynx without tonsillar hypertrophy exudate or other lesions. Bilateral TMs pearly bradford non-bulging NECK: Supple. No adenopathy or masses. CHEST: Clear to auscultation. No respiratory distress. No wheezes rales or rhonchi HEART: Regular rate and rhythm. No murmur heard. Normal peripheral pulses. ABDOMEN: Soft, nontender, nondistended, normal active bowel sounds. EXTREMITIES: Normal range of motion. No edema. Strength equal in bilateral upper and lower extremities (4/5) SKIN: Warm, dry, no rash. NEURO: No focal deficits. Alert and oriented x3. CN II-XII grossly intact PSYCH: Normal mood and affect Objective Data Vital Signs Vital Signs: Vital Signs - 24 hr 07/03/25 13:03 07/03/25 13:15 07/03/25 13:30 Temperature Pulse Rate 85 93 77 Respiratory Rate 17 28 H 14 Blood Pressure Pulse Oximetry Oxygen Delivery 07/03/25 13:45 07/03/25 20:05 07/04/25 04:30 Temperature 97.1 F L 96.5 F L Pulse Rate 79 85 99 Respiratory Rate 14 20 18 Blood Pressure 138/62 158/87 H Pulse Oximetry 98 97 Oxygen Delivery 07/04/25 09:12 07/04/25 09:55 07/04/25 11:26 Temperature Pulse Rate Respiratory Rate Blood Pressure Pulse Oximetry Oxygen Delivery Room Air Room Air Room Air Intake/Output Intake/Output: Intake & Output 07/01/25 07/02/25 07/03/25 07/04/25 23:59 23:59 23:59 23:59 Intake Total 887 490 Output Total 75 Balance 812 490 Meds/Results Medications: Active Medications Generic Name Dose Route Start Last Admin Trade Name Freq PRN Reason Stop Dose Admin Melatonin 10 mg 07/03/25 17:19 07/03/25 20:18 Melatonin 5 Mg Tablet PO 10 mg HS PRN Administration Insomnia Nitrofurantoin Macrocrystals 100 mg 07/03/25 21:00 07/04/25 09:12 Nitrofurantoin Monohyd Macrocr 100 Mg Cap PO 07/08/25 09:01 100 mg Q12HR KELLY Administration Olanzapine 5 mg 07/03/25 17:23 Olanzapine Odt Dispertab 5 Mg PO BID PRN Agitation Radiology Results: ITS Impressions Chest X-Ray 07/03/25 09:09 Impression: No acute cardiopulmonary abnormality. Head CT 07/03/25 10:56 Impression: 1.No acute intracranial abnormality. Chest CT 07/03/25 11:32 IMPRESSION: No acute findings. Chronic appearing findings as above. Labs Labs: Laboratory Results - last 24 hr 07/04/25 05:59 WBC 5.2 RBC 4.64 Hgb 13.6 Hct 40.7 MCV 87.7 MCH 29.3 MCHC 33.4 RDW 13.3 Plt Count 138 L MPV 9.7 Immature Gran % (Auto) 0.4 Neut % (Auto) 49.6 Lymph % (Auto) 29.5 [place] % (Auto) 14.6 H Eos % (Auto) 4.9 H Baso % (Auto) 1.0 Lymph # (Auto) 1.52 [place] # (Auto) 0.8 H Eos # (Auto) 0.3 Baso # (Auto) 0.1 Abs Immat Gran (auto) 0.02 Absolute Neuts (auto) 2.6 Absolute Nucleated RBC 0.000 Nucleated RBC % 0.0 % Immature Plt Fraction 3.7 Sodium 133 L Potassium 3.9 Chloride 100 Carbon Dioxide 25 Anion Gap 8 BUN 16 Creatinine 1.01 H Estim Creat Clear Calc 31 Estimated GFR 52 L Glucose 83 Calcium 9.7 Hospitalist MIPS Advance Care Plan I have confirmed that the patient's Advanced Care Plan is present, code status is documented, or surrogate decision maker is listed in patient medical record.: Yes Medication Reconciliation I have utilized all available resources to obtain, update and review the patients current medications (includes all prescriptions, OTC, herbals, cannabis, and nutritional supplements).: Yes
[2025-07-04 14:00] VITALS: BP 106/67; PULSE 78; RESP 14; TEMP 36.5; O2SAT 93
[2025-07-04] MEDS: MELATONIN 5 MG TABLET 10 MG PO (21:44)
[2025-07-04 21:48] VITALS: BP 111/55; PULSE 92; RESP 17; TEMP 36.1; O2SAT 95
[2025-07-05 06:00] VITALS: BP 136/68; PULSE 17; RESP 94; TEMP 36.4; O2SAT 94
[2025-07-05 06:36] LABS: Hematocrit 40.1 % (37.0-47.0); Hemoglobin 13.2 g/dL (12.0-15.0); Immature Granulocyte Percent A 0.1 % (0-0.5); Lymphocytes Absolute Auto 2.01 K/mm3 (0.9-3.2); Mean Corpuscular HGB Conc 32.9 g/dl (32-36); Mean Corpuscular Hemoglobin 28.8 pg (26-34); Mean Corpuscular Volume 87.4 fl (80-100); Nucleated Red Blood Cells Absolute Auto 0.000 K/mm3 (0.0-0.012); Nucleated Red Blood Cells Perc 0.0 % (0.0-0.2); Platelet Count Result 160 k/mm3 (150-375); Red Blood Count 4.59 M/mm3 (4.2-5.4); White Blood Count 6.7 K/mm3 (4.5-10.0)
[2025-07-05 06:56] LABS: Alanine Aminotransferase 13 U/L (6-35); Albumin Level 3.5 g/dL (3.5-5.1); Alkaline Phosphatase 73 U/L (38-126); Anion Gap 6 mmol/L (4-12); Aspartate Amino Transferase 30 U/L (14-36); Bilirubin,Total 0.5 mg/dL (0.2-1.3); Blood Urea Nitrogen 23 mg/dL (7-17); Calcium 9.0 mg/dL (8.4-10.2); Carbon Dioxide 26 mmol/L (22-30); Chloride 102 mmol/L (98-107); Estimated CRCL calculation 27 ml/min; Estimated Glomerular Filt Rate 46; Glucose 97 mg/dL (65-110); Potassium 3.8 mmol/L (3.4-5.0); Sodium 134 mmol/L (137-145); Total Protein 7.0 g/dL (6.3-8.2)
[2025-07-05] MEDS: NITROFURANTOIN MONOHYD MACROCR 100 MG CAP PO ×2 (09:22→20:41)
--- NOTE | 2025-07-05 11:39 | PM.IMPN ---
Progress Note: A&P Assessment and Plan (1) General weakness: Code(s): R53.1 - Weakness Status: Acute Assessment and Plan: Patient with a history of dementia presents with her family with complaints of increased weakness at home over the past 2 days. Son reports a cough and states the patient felt like she had a fever yesterday. Head CT with no acute intracranial abnormality. Chest CT with no acute findings. Patient has been improving significantly in feeling better. -PT/OT -consult care coordination to assist in rehab facility placement -spoke with daughter today who agrees with need for rehab (2) Acute renal failure: Qualifiers: Acute renal failure type: unspecified Qualified Code(s): N17.9 - Acute kidney failure, unspecified Code(s): N17.9 - Acute kidney failure, unspecified Status: Acute Assessment and Plan: Creatinine 1.1>1.13. Creatinine baseline is 0.6-0.85. Element of CKD to be considered. -status post 500 mL NS bolus in ED - trend renal function - trend electrolytes, correct as needed (3) Atrial fibrillation with RVR: Code(s): I48.91 - Unspecified atrial fibrillation Status: Acute Assessment and Plan: Does not appear to be on metoprolol or anticoagulation, EKG is sinus rhythm in the emergency room (4) UTI (urinary tract infection): Qualifiers: Hematuria presence: without hematuria Urinary tract infection type: site unspecified Qualified Code(s): N39.0 - Urinary tract infection, site not specified Code(s): N39.0 - Urinary tract infection, site not specified Status: Acute Assessment and Plan: UA shows trace ketones, trace leukocyte Estrace, 3-5 red blood cells, 4+ bacteria. Patient is asymptomatic with no leukocytosis or fever. Denies urinary symptoms -Macrobid 100 mg q.12 for 5 days as patient is pulling her IV out. -UA culture pending (5) Dementia: Qualifiers: Dementia behavioral or psychological symptom: without behavioral, psychotic, or mood disturbance or anxiety Dementia severity: moderate Dementia type: unspecified type Qualified Code(s): F03.B0 - Unspecified dementia, moderate, without behavioral disturbance, psychotic disturbance, mood disturbance, and anxiety Code(s): F03.90 - Unspecified dementia, unspecified severity, without behavioral disturbance, psychotic disturbance, mood disturbance, and anxiety Status: Chronic Assessment and Plan: History of baseline dementia, has been pleasant and at baseline through hospitalization. Olanzapine 5 mg b.i.d. as needed for agitation Frequent reorienting Seen this morning, pleasant and oriented during exam Plan DVT prophylaxis Heart healthy diet Discharge per care coordination, stable to discharge on oral antibiotics. Subjective Date/time seen: 07/05/25 11:39 Interval history: An 85-year-old female with past medical history of AFib, dementia, COPD presents to the ED on 07/03/2025 with her family with complaints of increased weakness at home over the past 2 days. Patient lives at home with her son and [id number]. Son states the patient is normally able to ambulate around the home with a cane but has been requiring a wheelchair over the past couple days. He further reports a cough and states the patient felt like she had a fever yesterday. Patient herself has no complaints. No complaints of chest pain, dyspnea, nausea, vomiting. No falls. The family is inquiring about patient going to SNF. Initial vital signs 140/110, 87 heart rate, respirations 20, afebrile and 94% on room air Labs reveal sodium 135, creatinine 1.10, a GFR of 47. UA shows trace ketones, trace leukocyte Estrace, 3-5 red blood cells, 4+ bacteria. Viral panel negative. Head CT with no acute intracranial abnormality. Chest CT with no acute findings. [id number] fibrosing changes. Moderately severe diffuse centrilobular emphysematous changes. Review of Systems Review of Systems: All systems reviewed & are unremarkable except as noted in HPI and below Exam Narrative: GENERAL: Well-appearing, well-nourished, and in no acute distress. HEAD: Normocephalic, atraumatic. EYES: PERRLA and EOMI. ENT: Nares clear, no rhinorrhea or epistaxis. Mucous membranes moist. Oropharynx without tonsillar hypertrophy exudate or other lesions. Bilateral TMs pearly bradford non-bulging NECK: Supple. No adenopathy or masses. CHEST: Clear to auscultation. No respiratory distress. No wheezes rales or rhonchi HEART: Regular rate and rhythm. No murmur heard. Normal peripheral pulses. ABDOMEN: Soft, nontender, nondistended, normal active bowel sounds. EXTREMITIES: Normal range of motion. No edema. Strength equal in bilateral upper and lower extremities (4/5) SKIN: Warm, dry, no rash. NEURO: No focal deficits. Alert and oriented x3. CN II-XII grossly intact PSYCH: Normal mood and affect Objective Data Vital Signs Vital Signs: Vital Signs - 24 hr 07/04/25 14:00 07/04/25 21:48 07/05/25 06:00 Temperature 97.7 F 96.9 F L 97.6 F Pulse Rate 78 92 17 L Respiratory Rate 14 17 94 H Blood Pressure 106/67 111/55 L 136/68 Pulse Oximetry 93 95 94 Oxygen Delivery 07/05/25 08:00 Temperature Pulse Rate Respiratory Rate Blood Pressure Pulse Oximetry Oxygen Delivery Room Air Intake/Output Intake/Output: Intake & Output 07/02/25 07/03/25 07/04/25 07/05/25 23:59 23:59 23:59 23:59 Intake Total 887 970 800 Output Total 75 Balance 812 970 800 Meds/Results Medications: Active Medications Generic Name Dose Route Start Last Admin Trade Name Freq PRN Reason Stop Dose Admin Melatonin 10 mg 07/03/25 17:19 07/04/25 21:44 Melatonin 5 Mg Tablet PO 10 mg HS PRN Administration Insomnia Nitrofurantoin Macrocrystals 100 mg 07/03/25 21:00 07/05/25 09:22 Nitrofurantoin Monohyd Macrocr 100 Mg Cap PO 07/08/25 09:01 100 mg Q12HR KELLY Administration Olanzapine 5 mg 07/03/25 17:23 Olanzapine Odt Dispertab 5 Mg PO BID PRN Agitation Radiology Results: ITS Impressions Chest X-Ray 07/03/25 09:09 Impression: No acute cardiopulmonary abnormality. Head CT 07/03/25 10:56 Impression: 1.No acute intracranial abnormality. Chest CT 07/03/25 11:32 IMPRESSION: No acute findings. Chronic appearing findings as above. Labs Labs: Laboratory Results - last 24 hr 07/05/25 05:59 WBC 6.7 RBC 4.59 Hgb 13.2 Hct 40.1 MCV 87.4 MCH 28.8 MCHC 32.9 RDW 13.3 Plt Count 160 MPV 9.8 Immature Gran % (Auto) 0.1 Neut % (Auto) 53.2 Lymph % (Auto) 30.1 [place] % (Auto) 12.3 H Eos % (Auto) 3.6 Baso % (Auto) 0.7 Lymph # (Auto) 2.01 [place] # (Auto) 0.8 H Eos # (Auto) 0.2 Baso # (Auto) 0.1 Abs Immat Gran (auto) 0.01 Absolute Neuts (auto) 3.6 Absolute Nucleated RBC 0.000 Nucleated RBC % 0.0 Sodium 134 L Potassium 3.8 Chloride 102 Carbon Dioxide 26 Anion Gap 6 BUN 23 H Creatinine 1.13 H Estim Creat Clear Calc 27 Estimated GFR 46 L Glucose 97 Calcium 9.0 Total Bilirubin 0.5 AST 30 ALT 13 Alkaline Phosphatase 73 Total Protein 7.0 Albumin 3.5 Hospitalist MIPS Advance Care Plan I have confirmed that the patient's Advanced Care Plan is present, code status is documented, or surrogate decision maker is listed in patient medical record.: Yes Medication Reconciliation I have utilized all available resources to obtain, update and review the patients current medications (includes all prescriptions, OTC, herbals, cannabis, and nutritional supplements).: Yes
[2025-07-05 14:00] VITALS: BP 119/69; PULSE 85; RESP 17; TEMP 36.2; O2SAT 96
[2025-07-05 22:00] VITALS: BP 144/90; PULSE 102; RESP 18; TEMP 37.4; O2SAT 97
[2025-07-06] MEDS: MELATONIN 5 MG TABLET 10 MG PO ×2 (00:11→20:26)
[2025-07-06 06:00] VITALS: BP 135/76; PULSE 100; RESP 18; TEMP 36.9; O2SAT 96
[2025-07-06 06:35] LABS: Hematocrit 38.8 % (37.0-47.0); Hemoglobin 12.9 g/dL (12.0-15.0); Immature Granulocyte Percent A 0.4 % (0-0.5); Lymphocytes Absolute Auto 1.58 K/mm3 (0.9-3.2); Mean Corpuscular HGB Conc 33.2 g/dl (32-36); Mean Corpuscular Hemoglobin 28.8 pg (26-34); Mean Corpuscular Volume 86.6 fl (80-100); Nucleated Red Blood Cells Absolute Auto 0.000 K/mm3 (0.0-0.012); Nucleated Red Blood Cells Perc 0.0 % (0.0-0.2); Platelet Count Result 161 k/mm3 (150-375); Red Blood Count 4.48 M/mm3 (4.2-5.4); White Blood Count 8.1 K/mm3 (4.5-10.0)
[2025-07-06 06:45] LABS: Alanine Aminotransferase 31 U/L (6-35); Albumin Level 3.6 g/dL (3.5-5.1); Alkaline Phosphatase 81 U/L (38-126); Anion Gap 8 mmol/L (4-12); Aspartate Amino Transferase 66 U/L (14-36); Bilirubin,Total 0.9 mg/dL (0.2-1.3); Blood Urea Nitrogen 16 mg/dL (7-17); Calcium 9.4 mg/dL (8.4-10.2); Carbon Dioxide 24 mmol/L (22-30); Chloride 101 mmol/L (98-107); Estimated CRCL calculation 35 ml/min; Estimated Glomerular Filt Rate > 60; Glucose 104 mg/dL (65-110); Potassium 3.3 mmol/L (3.4-5.0); Sodium 133 mmol/L (137-145); Total Protein 7.2 g/dL (6.3-8.2)
--- NOTE | 2025-07-06 07:56 | P.PNIM_ITS ---
Progress Note: A&P Assessment and Plan (1) General weakness: Code(s): R53.1 - Weakness Status: Acute Assessment and Plan: Patient with a history of dementia presents with her family with complaints of increased weakness at home over the past 2 days. Son reports a cough and states the patient felt like she had a fever yesterday. Head CT with no acute intracranial abnormality. Chest CT with no acute findings. Patient has been improving significantly in feeling better. -PT/OT -consult care coordination to assist in rehab facility placement -spoke with daughter today who agrees with need for rehab (2) Acute renal failure: Qualifiers: Acute renal failure type: unspecified Qualified Code(s): N17.9 - Acute kidney failure, unspecified Code(s): N17.9 - Acute kidney failure, unspecified Status: Acute Assessment and Plan: Creatinine 1.1>1.13. Creatinine baseline is 0.6-0.85. Element of CKD to be considered. -status post 500 mL NS bolus in ED - trend renal function - trend electrolytes, correct as needed -cr today 0.86 -encourage PO fluids, monitor kidney function (3) Atrial fibrillation with RVR: Code(s): I48.91 - Unspecified atrial fibrillation Status: Acute Assessment and Plan: Does not appear to be on metoprolol or anticoagulation, EKG is sinus rhythm in the emergency room (4) UTI (urinary tract infection): Qualifiers: Hematuria presence: without hematuria Urinary tract infection type: site unspecified Qualified Code(s): N39.0 - Urinary tract infection, site not specified Code(s): N39.0 - Urinary tract infection, site not specified Status: Acute Assessment and Plan: UA shows trace ketones, trace leukocyte Estrace, 3-5 red blood cells, 4+ bacteria. Patient is asymptomatic with no leukocytosis or fever. Denies urinary symptoms -Macrobid 100 mg q.12 for 5 days as patient is pulling her IV out. -UA culture pending (5) Dementia: Qualifiers: Dementia behavioral or psychological symptom: without behavioral, psychotic, or mood disturbance or anxiety Dementia severity: moderate Dementia type: unspecified type Qualified Code(s): F03.B0 - Unspecified dementia, moderate, without behavioral disturbance, psychotic disturbance, mood disturbance, and anxiety Code(s): F03.90 - Unspecified dementia, unspecified severity, without behavioral disturbance, psychotic disturbance, mood disturbance, and anxiety Status: Chronic Assessment and Plan: History of baseline dementia, has been pleasant and at baseline through hospitalization. Olanzapine 5 mg b.i.d. as needed for agitation Frequent reorienting Seen this morning, pleasant and oriented during exam (6) Hypokalemia: Code(s): E87.6 - Hypokalemia Status: Acute Assessment and Plan: k 3.3 today PO kudr 40 meq ordered BMP in am Plan DVT prophylaxis Heart healthy diet Discharge per care coordination, stable to discharge on oral antibiotics. Subjective Date/time seen: 07/06/25 07:56 Interval history: Patient seen for a follow up visit. Patient lying in bed, in no acute distress. Patient denies acute pain. Patient's potassium level 3.3 today, ordered 40 meq PO potassium for replacement. Patient's daughter at bedside this AM. Patient has dementia and is pleasantly confused. Patient needs rehab placement, discharge once arranged. Review of Systems Review of Systems: All systems reviewed & are unremarkable except as noted in HPI and below Exam Narrative: GENERAL: Well-appearing, well-nourished, and in no acute distress. HEAD: Normocephalic, atraumatic. EYES: PERRLA and EOMI. ENT: Nares clear, no rhinorrhea or epistaxis. Mucous membranes moist. Oropharynx without tonsillar hypertrophy exudate or other lesions. Bilateral TMs pearly bradford non-bulging NECK: Supple. No adenopathy or masses. CHEST: Clear to auscultation. No respiratory distress. No wheezes rales or rhonchi HEART: Regular rate and rhythm. No murmur heard. Normal peripheral pulses. ABDOMEN: Soft, nontender, nondistended, normal active bowel sounds. EXTREMITIES: Normal range of motion. No edema. Strength equal in bilateral upper and lower extremities (4/5) SKIN: Warm, dry, no rash. NEURO: No focal deficits. Alert and oriented x1-2. CN II-XII grossly intact PSYCH: Normal mood and affect Objective Data Vital Signs Vital Signs: Vital Signs - 24 hr 07/05/25 08:00 07/05/25 14:00 07/05/25 20:00 Temperature 97.1 F L Pulse Rate 85 Respiratory Rate 17 Blood Pressure 119/69 Pulse Oximetry 96 Oxygen Delivery Room Air Room Air 07/05/25 22:00 Temperature 99.4 F Pulse Rate 102 H Respiratory Rate 18 Blood Pressure 144/90 H Pulse Oximetry 97 Oxygen Delivery Intake/Output Intake/Output: Intake & Output 07/03/25 07/04/25 07/05/25 07/06/25 23:59 23:59 23:59 23:59 Intake Total 498 646 7072 Output Total 75 Balance 229 907 6940 Meds/Results Medications: Active Medications Generic Name Dose Route Start Last Admin Trade Name Freq PRN Reason Stop Dose Admin Melatonin 10 mg 07/03/25 17:19 07/06/25 00:11 Melatonin 5 Mg Tablet PO 10 mg HS PRN Administration Insomnia Nitrofurantoin Macrocrystals 100 mg 07/03/25 21:00 07/05/25 20:41 Nitrofurantoin Monohyd Macrocr 100 Mg Cap PO 07/08/25 09:01 100 mg Q12HR KELLY Administration Olanzapine 5 mg 07/03/25 17:23 Olanzapine Odt Dispertab 5 Mg PO BID PRN Agitation Potassium Chloride 40 meq 07/06/25 07:55 Potassium Chloride 20 Meq Er Tablet PO 07/06/25 07:56 ONCE ONE Radiology Results: ITS Impressions Chest X-Ray 07/03/25 09:09 Impression: No acute cardiopulmonary abnormality. Head CT 07/03/25 10:56 Impression: 1.No acute intracranial abnormality. Chest CT 07/03/25 11:32 IMPRESSION: No acute findings. Chronic appearing findings as above. Labs Labs: Laboratory Results - last 24 hr 07/06/25 06:03 WBC 8.1 RBC 4.48 Hgb 12.9 Hct 38.8 MCV 86.6 MCH 28.8 MCHC 33.2 RDW 13.0 Plt Count 161 MPV 9.6 Immature Gran % (Auto) 0.4 Neut % (Auto) 65.7 Lymph % (Auto) 19.6 [place] % (Auto) 11.6 H Eos % (Auto) 2.1 Baso % (Auto) 0.6 Lymph # (Auto) 1.58 [place] # (Auto) 0.9 H Eos # (Auto) 0.2 Baso # (Auto) 0.1 Abs Immat Gran (auto) 0.03 Absolute Neuts (auto) 5.3 Absolute Nucleated RBC 0.000 Nucleated RBC % 0.0 Sodium 133 L Potassium 3.3 L Chloride 101 Carbon Dioxide 24 Anion Gap 8 BUN 16 Creatinine 0.86 Estim Creat Clear Calc 35 Estimated GFR > 60 Glucose 104 Calcium 9.4 Total Bilirubin 0.9 AST 66 H ALT 31 Alkaline Phosphatase 81 Total Protein 7.2 Albumin 3.6 Quality VTE Prophylaxis VTE prophylaxis: mechanical ordered Hospitalist MIPS Advance Care Plan I have confirmed that the patient's Advanced Care Plan is present, code status is documented, or surrogate decision maker is listed in patient medical record.: Yes Medication Reconciliation I have utilized all available resources to obtain, update and review the patients current medications (includes all prescriptions, OTC, herbals, cannabis, and nutritional supplements).: Yes
[2025-07-06] MEDS: NITROFURANTOIN MONOHYD MACROCR 100 MG CAP PO ×2 (08:33→20:26)
[2025-07-06] MEDS: POTASSIUM CHLORIDE 20 MEQ ER TABLET 40 MEQ PO (08:33)
--- NOTE | 2025-07-06 10:41 | PC.NURSE ---
Attempted to return phone call to Raheem, son, twice without success. Daughter at bedside, made aware of attempts to reach son.
[2025-07-06 14:00] VITALS: BP 134/62; PULSE 95; RESP 18; TEMP 36.2; O2SAT 98
[2025-07-06 20:29] VITALS: BP 173/80; PULSE 104; RESP 17; TEMP 36.8; O2SAT 95
[2025-07-07 06:00] VITALS: BP 176/85; PULSE 97; RESP 20; TEMP 36.6; O2SAT 96
[2025-07-07 06:47] LABS: Hematocrit 39.6 % (37.0-47.0); Hemoglobin 13.2 g/dL (12.0-15.0); Immature Granulocyte Percent A 0.3 % (0-0.5); Lymphocytes Absolute Auto 1.72 K/mm3 (0.9-3.2); Mean Corpuscular HGB Conc 33.3 g/dl (32-36); Mean Corpuscular Hemoglobin 29.0 pg (26-34); Mean Corpuscular Volume 87.0 fl (80-100); Nucleated Red Blood Cells Absolute Auto 0.000 K/mm3 (0.0-0.012); Nucleated Red Blood Cells Perc 0.0 % (0.0-0.2); Platelet Count Result 158 k/mm3 (150-375); Red Blood Count 4.55 M/mm3 (4.2-5.4); White Blood Count 6.8 K/mm3 (4.5-10.0)
[2025-07-07 07:13] LABS: Alanine Aminotransferase 44 U/L (6-35); Albumin Level 3.7 g/dL (3.5-5.1); Alkaline Phosphatase 96 U/L (38-126); Anion Gap 5 mmol/L (4-12); Aspartate Amino Transferase 74 U/L (14-36); Bilirubin,Total 1.1 mg/dL (0.2-1.3); Blood Urea Nitrogen 12 mg/dL (7-17); Calcium 9.4 mg/dL (8.4-10.2); Carbon Dioxide 25 mmol/L (22-30); Chloride 104 mmol/L (98-107); Estimated CRCL calculation 41 ml/min; Estimated Glomerular Filt Rate > 60; Glucose 99 mg/dL (65-110); Magnesium 1.8 mg/dL (1.6-2.3); Potassium 3.8 mmol/L (3.4-5.0); Sodium 134 mmol/L (137-145); Total Protein 7.3 g/dL (6.3-8.2)
--- NOTE | 2025-07-07 08:13 | P.PNIM_ITS ---
Progress Note: A&P Assessment and Plan (1) General weakness: Code(s): R53.1 - Weakness Status: Acute Assessment and Plan: * history of dementia presents * complaints of increased weakness at home over the past 2 days. * Head CT with no acute intracranial abnormality. * Chest CT with no acute findings. * PT/OT * consult care coordination to assist in rehab facility placement * spoke with daughter today who agrees with need for rehab * await acceptance and auth (2) Acute renal failure: Qualifiers: Acute renal failure type: unspecified Qualified Code(s): N17.9 - Acute kidney failure, unspecified Code(s): N17.9 - Acute kidney failure, unspecified Status: Acute Assessment and Plan: * Creatinine 1.1>1.13, currently 12/0.74 * Creatinine baseline is 0.6-0.85. * Element of CKD to be considered. * trend renal function * trend electrolytes, correct as needed * encourage PO fluids, monitor kidney function * Back to baseline * Resolved (3) Atrial fibrillation with RVR: Code(s): I48.91 - Unspecified atrial fibrillation Status: Acute Assessment and Plan: * Does not appear to be on metoprolol or anticoagulation * EKG is sinus rhythm in the emergency room * heart rate stable 97 * Trend heart rate * Adjust therapy as indicated (4) UTI (urinary tract infection): Qualifiers: Hematuria presence: without hematuria Urinary tract infection type: site unspecified Qualified Code(s): N39.0 - Urinary tract infection, site not specified Code(s): N39.0 - Urinary tract infection, site not specified Status: Acute Assessment and Plan: * UA shows trace ketones, trace leukocyte Estrace, 3-5 red blood cells, 4+ bacteria. * Patient is asymptomatic with no leukocytosis or fever. Denies urinary symptoms * Macrobid 100 mg q.12, DC received roughly 4 days * UA culture Aerococcus * Consider amoxicillin if indicated (5) Dementia: Qualifiers: Dementia behavioral or psychological symptom: without behavioral, psychotic, or mood disturbance or anxiety Dementia severity: moderate Dementia type: unspecified type Qualified Code(s): F03.B0 - Unspecified dementia, moderate, without behavioral disturbance, psychotic disturbance, mood disturbance, and anxiety Code(s): F03.90 - Unspecified dementia, unspecified severity, without behavioral disturbance, psychotic disturbance, mood disturbance, and anxiety Status: Chronic Assessment and Plan: * Hx of dementia * Olanzapine 5 mg b.i.d. as needed for agitation * Frequent reorienting * Seen this morning, pleasant and oriented during exam * continue to trend mental status Plan DVT prophylaxis Heart healthy diet Discharge per care coordination, stable to discharge on oral antibiotics. Time Spent With Patient Time: 51 minutes Time with patient: Greater than 35 minutes Subjective Date/time seen: 07/07/25 08:13 Review of Systems Review of Systems: All systems reviewed & are unremarkable except as noted in HPI and below Exam Narrative: GENERAL: Well-appearing, well-nourished, and in no acute distress. HEAD: Normocephalic, atraumatic. EYES: PERRLA and EOMI. ENT: Nares clear, no rhinorrhea or epistaxis. Mucous membranes moist. Oropharynx without tonsillar hypertrophy exudate or other lesions. Bilateral TMs pearly bradford non-bulging NECK: Supple. No adenopathy or masses. CHEST: Clear to auscultation. No respiratory distress. No wheezes rales or rhonchi HEART: Regular rate and rhythm. No murmur heard. Normal peripheral pulses. ABDOMEN: Soft, nontender, nondistended, normal active bowel sounds. EXTREMITIES: Normal range of motion. No edema. Strength equal in bilateral upper and lower extremities (4/5) SKIN: Warm, dry, no rash. NEURO: No focal deficits. Alert and oriented x1-2. CN II-XII grossly intact PSYCH: Normal mood and affect Objective Data Vital Signs Vital Signs: Vital Signs - 24 hr 07/06/25 14:00 07/06/25 20:29 07/07/25 06:00 Temperature 97.2 F L 98.3 F 97.9 F Pulse Rate 95 104 H 97 Respiratory Rate 18 17 20 Blood Pressure 134/62 173/80 H 176/85 H Pulse Oximetry 98 95 96 Intake/Output Intake/Output: Intake & Output 07/04/25 07/05/25 07/06/25 07/07/25 23:59 23:59 23:59 23:59 Intake Total 970 1488 2440 Balance 970 1488 2440 Meds/Results Medications: Active Medications Generic Name Dose Route Start Last Admin Trade Name Freq PRN Reason Stop Dose Admin Melatonin 10 mg 07/03/25 17:19 07/06/25 20:26 Melatonin 5 Mg Tablet PO 10 mg HS PRN Administration Insomnia Nitrofurantoin Macrocrystals 100 mg 07/03/25 21:00 07/06/25 20:26 Nitrofurantoin Monohyd Macrocr 100 Mg Cap PO 07/08/25 09:01 100 mg Q12HR KELLY Administration Olanzapine 5 mg 07/03/25 17:23 Olanzapine Odt Dispertab 5 Mg PO BID PRN Agitation Radiology Results: ITS Impressions Chest X-Ray 07/03/25 09:09 Impression: No acute cardiopulmonary abnormality. Head CT 07/03/25 10:56 Impression: 1.No acute intracranial abnormality. Chest CT 07/03/25 11:32 IMPRESSION: No acute findings. Chronic appearing findings as above. Labs Labs: Laboratory Results - last 24 hr 07/07/25 06:30 WBC 6.8 RBC 4.55 Hgb 13.2 Hct 39.6 MCV 87.0 MCH 29.0 MCHC 33.3 RDW 13.1 Plt Count 158 MPV 9.4 Immature Gran % (Auto) 0.3 Neut % (Auto) 57.7 Lymph % (Auto) 25.4 [place] % (Auto) 12.9 H Eos % (Auto) 3.1 Baso % (Auto) 0.6 Lymph # (Auto) 1.72 [place] # (Auto) 0.9 H Eos # (Auto) 0.2 Baso # (Auto) 0.0 Abs Immat Gran (auto) 0.02 Absolute Neuts (auto) 3.9 Absolute Nucleated RBC 0.000 Nucleated RBC % 0.0 Sodium 134 L Potassium 3.8 Chloride 104 Carbon Dioxide 25 Anion Gap 5 BUN 12 Creatinine 0.74 Estim Creat Clear Calc 41 Estimated GFR > 60 Glucose 99 Calcium 9.4 Magnesium 1.8 Total Bilirubin 1.1 AST 74 H ALT 44 H Alkaline Phosphatase 96 Total Protein 7.3 Albumin 3.7 Quality VTE Prophylaxis VTE prophylaxis: mechanical ordered
--- NOTE | 2025-07-07 09:48 | P.DS_ITS ---
DS: Admitting Diagnosis Discharge Date 07/07/25829 Admitting Diagnosis Urinary tract infection DS: Discharge Diagnosis Discharge Diagnosis (1) General weakness: Code(s): R53.1 - Weakness Status: Acute Assessment and Plan: * history of dementia presents * complaints of increased weakness at home over the past 2 days. * Head CT with no acute intracranial abnormality. * Chest CT with no acute findings. * PT/OT * consult care coordination to assist in rehab facility placement * spoke with daughter today who agrees with need for rehab * await acceptance and auth (2) Acute renal failure: Qualifiers: Acute renal failure type: unspecified Qualified Code(s): N17.9 - Acute kidney failure, unspecified Code(s): N17.9 - Acute kidney failure, unspecified Status: Acute Assessment and Plan: * Creatinine 1.1>1.13, currently 12/0.74 * Creatinine baseline is 0.6-0.85. * Element of CKD to be considered. * trend renal function * trend electrolytes, correct as needed * encourage PO fluids, monitor kidney function * Back to baseline * Resolved (3) Atrial fibrillation with RVR: Code(s): I48.91 - Unspecified atrial fibrillation Status: Acute Assessment and Plan: * Does not appear to be on metoprolol or anticoagulation * EKG is sinus rhythm in the emergency room * heart rate stable 97 * Trend heart rate * Adjust therapy as indicated (4) UTI (urinary tract infection): Qualifiers: Hematuria presence: without hematuria Urinary tract infection type: site unspecified Qualified Code(s): N39.0 - Urinary tract infection, site not specified Code(s): N39.0 - Urinary tract infection, site not specified Status: Acute Assessment and Plan: * UA shows trace ketones, trace leukocyte Estrace, 3-5 red blood cells, 4+ bacteria. * Patient is asymptomatic with no leukocytosis or fever. Denies urinary symptoms * Macrobid 100 mg q.12, DC received roughly 4 days * UA culture Aerococcus * Consider amoxicillin if indicated (5) Dementia: Qualifiers: Dementia behavioral or psychological symptom: without behavioral, psychotic, or mood disturbance or anxiety Dementia severity: moderate Dementia type: unspecified type Qualified Code(s): F03.B0 - Unspecified dementia, moderate, without behavioral disturbance, psychotic disturbance, mood disturbance, and anxiety Code(s): F03.90 - Unspecified dementia, unspecified severity, without behavioral disturbance, psychotic disturbance, mood disturbance, and anxiety Status: Chronic Assessment and Plan: * Hx of dementia * Olanzapine 5 mg b.i.d. as needed for agitation * Frequent reorienting * Seen this morning, pleasant and oriented during exam * continue to trend mental status Plan DVT prophylaxis Heart healthy diet Discharge per care coordination, stable to discharge on oral antibiotics. DS: Summary Hospital Course Hospital Course: Patient is a 5-year-old female with a past medical history of AFib, dementia, COPD who presented to the ED with complaints of increased weakness at home. Patient does live with her son and her [id number] and patient is normally ambulatory around the house with a cane but has resumed requiring a wheelchair. Head CT was performed with no acute intracranial abnormality. Chest CT shows no acute findings. PT and OT did work with the patient. Patient does have a history of dementia and is stable mentally. Upon arrival creatinine was 1.1 and is currently 0.74 which is back to baseline. Patient did grow Aerococcus in her urine and was initially treated with Macrobid which has been changed to p.o. amoxicillin. Current patient is doing well and is stable for discharge for labs and vital signs. Patient denies any current chest pain, shortness a breath, nausea, vomiting, diarrhea constipation. At this time patient is stable for discharge. Patient was considered for rehab however family is agreeable to take the patient home with home health. Labs and vital signs also remained stable. Status at Discharge Functional status at discharge: uses cane/walker Overall status at discharge: patient is progressing back to baseline Time Spent with Patient Time attestation: Total time spent providing and/or coordinating discharge services: 49 minutes Time spent: Greater than 30 minutes Specific discharge activities: Diagnostic testing, chart review, developing a treatment plan, education, care coordination documentation, physical exam, result review Exam Narrative: GENERAL: Well-appearing, well-nourished, and in no acute distress. HEAD: Normocephalic, atraumatic. EYES: PERRLA and EOMI. ENT: Nares clear, no rhinorrhea or epistaxis. Mucous membranes moist. Oropharynx without tonsillar hypertrophy exudate or other lesions. Bilateral TMs pearly bradford non-bulging NECK: Supple. No adenopathy or masses. CHEST: Clear to auscultation. No respiratory distress. No wheezes rales or rhonchi HEART: Regular rate and rhythm. No murmur heard. Normal peripheral pulses. ABDOMEN: Soft, nontender, nondistended, normal active bowel sounds. EXTREMITIES: Normal range of motion. No edema. Strength equal in bilateral upper and lower extremities (4/5) SKIN: Warm, dry, no rash. NEURO: No focal deficits. Alert and oriented x1-2. CN II-XII grossly intact PSYCH: Normal mood and affect DS: Data Data Completed and Pending Labs on day of discharge: Labs from last 24 hours 07/07/25 06:30 WBC 6.8 RBC 4.55 Hgb 13.2 Hct 39.6 MCV 87.0 MCH 29.0 MCHC 33.3 RDW 13.1 Plt Count 158 MPV 9.4 Immature Gran % (Auto) 0.3 Neut % (Auto) 57.7 Lymph % (Auto) 25.4 [place] % (Auto) 12.9 H Eos % (Auto) 3.1 Baso % (Auto) 0.6 Lymph # (Auto) 1.72 [place] # (Auto) 0.9 H Eos # (Auto) 0.2 Baso # (Auto) 0.0 Abs Immat Gran (auto) 0.02 Absolute Neuts (auto) 3.9 Absolute Nucleated RBC 0.000 Nucleated RBC % 0.0 Sodium 134 L Potassium 3.8 Chloride 104 Carbon Dioxide 25 Anion Gap 5 BUN 12 Creatinine 0.74 Estim Creat Clear Calc 41 Estimated GFR > 60 Glucose 99 Calcium 9.4 Magnesium 1.8 Total Bilirubin 1.1 AST 74 H ALT 44 H Alkaline Phosphatase 96 Total Protein 7.3 Albumin 3.7 Discharge Plan Discharge Attending physician on discharge: Cindy Bloom Discharging Clinician: Cristofer Fuller Patient Disposition: Home with Home Health Service Activity: may shower, unlimited and as tolerated Diet: regular Discharge Instructions: Per Care Coordination: [facility] ([phone]) will call to schedule initial visit for Skilled RN/PT/OT services. RN please fax discharge instructions/med list to [phone] * Take all medications as prescribed even if feeling better * Eat well balanced meals and stay hydrated * Keep active to remain strong * Avoid use of diapers or pads * Good autumn Care every 2 hours * Trend urine output * If you should experience any chest pain, shortness of breath, temps >100.4 or any other worrisome symptoms please follow up with your PCP come back to the hospital * Follow up with your primary in 1 weeks * It has been a pleasure taking care of you thank you for using our services Patient Instructions: Antibiotic Form Patient Language: Pashto Stand Alone Forms: General Discharge Information Follow-up/Referrals: Evelyn,Tacos LYONS [Other] - 1 Week Discharge Medications: New amoxicillin 500 mg Capsule 500 mg PO Q12HR Qty: 2 0RF Continued melatonin 10 mg capsule 10 mg PO HS Date of admission: 07/04/25 14:05 Primary Care Provider: Evelyn,Tacos LYONS Admitting Provider: Cindy Bloom Attending physician on admission: Cindy Bloom Condition: Stable Quality VTE Prophylaxis VTE prophylaxis: mechanical ordered Hospitalist MIPS Heart Failure (Exclusion) Patient has history of Heart Transplant or Left Ventricular Assistive Device?: No IF YES, STOP HERE Heart Failure (Qualifier) Patient has current or prior documentation of LVEF less than or equal to 40%, or mod/servere depressed LVSF?: No IF NO, STOP HERE
[2025-07-07] MEDS: AMOXICILLIN 500 MG CAPSULE PO (10:18)
[2025-07-07] MEDS: INFLUENZA VACCINE HIGH DOSE (>64) 180 MCG/0.5 ML SYRINGE IM (11:40)
== END 2025-07-07 12:50 | disposition home health service (06) | DRG 690 ==
LOC: ANHED 09:33 → ANH3MEDSUR 13:50
PROVIDERS: Nurse Practitioner Adult Health; Student in an Organized Health Care Education/Training Program; Admitting Provider General Practice; Emergency Provider Physician Assistant; Visit Provider General Practice
DX: N39.0 Urinary tract infection, site not specified (principal); N17.9 Acute kidney failure, unspecified; I48.91 Unspecified atrial fibrillation; E87.6 Hypokalemia; J44.9 Chronic obstructive pulmonary disease, unspecified; F03.90 Unspecified dementia, unspecified severity, without behavioral disturbance, psychotic disturbance, mood disturbance, and anxiety; Z66 Do not resuscitate; Z20.822 Contact with and (suspected) exposure to COVID-19; B96.89 Other specified bacterial agents as the cause of diseases classified elsewhere; F10.91 Alcohol use, unspecified, in remission; R62.7 Adult failure to thrive; Z68.22 Body mass index [BMI] 22.0-22.9, adult; Z87.891 Personal history of nicotine dependence; Z23 Encounter for immunization
CPT/HCPCS: 36415; 70450; 71046; 71250; 80048; 80053; 81001; 83735; 85025; 85055; 87086; 87637; 90471; 90662; 93005; 96361; 96374; 97162; 97165; 99285; A9270; G0008; G0378; J7040